=== PATIENT | male | born 1955 | race Caucasian/White ===

== ENCOUNTER 2016-10-21 09:20 | Inpatient (IN) | payer OTHER ==
--- NOTE | 2016-10-21 09:33 | PDOC ---
History of Present Illness - History of Present Illness Initial Comments: 10/21/16 09:56 Patient is a 60-year-old male past medical history of schizophrenia, hypertension, depression, seizures, chronic kidney disease, CVA, bipolar disorder, as the emergency room today after he had an elevated BUN and creatinine on his latest lab work at [facility]. The reported BUN on his intake paperwork was over 120, creatinine of 5.5. Unsure of his baseline. Patient has no complaints at this time. Denies fevers. chills, malaise, shortness of breath , chest pain, palpitations, edema, nausea, diarrhea, vomiting, back pain, and cough. <Agueda Frank - Last Filed: 10/25/16 05:05> <Rudy Metcalf - Last Filed: 10/25/16 17:59> - General Chief Complaint: Revisit, Lab Variance Stated Complaint: KIDNEY PROBLEMS Time Seen by Provider: 10/21/16 09:25 Past History - Travel Traveled outside of the country in the last 30 days: No Close contact w/someone who was outside of country & ill: No <Agueda Frank - Last Filed: 10/25/16 05:05> <Rudy Metcalf - Last Filed: 10/25/16 17:59> - Past Medical History Allergies/Adverse Reactions: Allergies Allergy/AdvReac Type Severity Reaction Status Date / Time No Known Allergies Allergy Verified 10/21/16 09:31 Home Medications: Ambulatory Orders Benztropine Mesylate [Cogentin -] 1 mg PO BID 10/21/16 Citalopram Hydrobromide [Celexa -] 20 mg PO DAILY 10/21/16 Olanzapine [Zyprexa -] 5 mg PO BID 10/21/16 Phenytoin Na Extended [Dilantin -] 200 mg PO BID 10/21/16 Risperidone [Risperdal] 2 mg PO BID 10/21/16 Sennosides [Senno] 17.2 mg PO BID PRN 10/21/16 Zonisamide 200 mg PO DAILY 10/21/16 Review of Systems - Review of Systems Able to Perform ROS?: Yes Comments:: 10/21/16 10:05 CONSTITUTIONAL: Absent: fever, chills, diaphoresis, generalized weakness, malaise, loss of appetite HEENT: Absent: rhinorrhea, nasal congestion, throat pain, throat swelling, difficulty swallowing, mouth swelling, ear pain, eye pain, visual Changes CARDIOVASCULAR: Absent: chest pain, loss of consciousness, palpitations, irregular heart rate, peripheral edema RESPIRATORY: Absent: cough, shortness of breath, dyspnea with exertion, orthopnea, wheezing, stridor, hemoptysis GASTROINTESTINAL: Absent: abdominal pain, abdominal distension, nausea, vomiting, diarrhea, constipation, melena, hematochezia GENITOURINARY: Absent: dysuria, frequency, urgency, hesitancy, hematuria, flank pain, genital pain MUSCULOSKELETAL: Absent: myalgia, arthralgia, joint swelling SKIN: Absent: rash, itching, pallor HEMATOLOGIC/IMMUNOLOGIC: Absent: easy bleeding, easy bruising, lymphadenopathy, frequent infections ENDOCRINE: Absent: unexplained weight gain, unexplained weight loss, heat intolerance, cold intolerance NEUROLOGIC: Absent: headache, focal weakness or paresthesias, dizziness, unsteady gait, seizure, mental status changes, bladder or bowel incontinence PSYCHIATRIC: Absent: anxiety, depression, suicidal or homicidal ideation, hallucinations. Is the patient limited Citizen [place] proficient: No <Agueda Frank - Last Filed: 10/25/16 05:05> *Physical Exam - Physical Exam Comments: 10/21/16 10:14 GENERAL: Well developed, well nourished. AAOx3. No acute distress, laying on bed breathing easily HEENT: Normocephalic, atraumatic. PERRLA, EOMI. No conjunctival pallor. Sclera are non- icteric. Moist mucous membranes. Oropharynx is clear. NECK: Supple. Full ROM. No JVD. Carotid pulses 2+ and symmetric, without bruits. No thyromegaly. No lymphadenopathy. CARDIOVASCULAR: Regular rate and rhythm. No murmurs, rubs, or gallops. Distal pulses are 2+ and symmetric. PULMONARY: No evidence of respiratory distress. Lungs clear to auscultation bilaterally. No wheezing, rales or rhonchi. ABDOMINAL: Soft. Non-tender. Non-distended. No rebound or guarding. No organomegaly. Normoactive bowel sounds. MUSCULOSKELETAL Normal range of motion at all joints. No bony deformities or tenderness. No CVA tenderness. EXTREMITIES: No cyanosis. No clubbing. No edema. No calf tenderness. SKIN: Warm and dry. Normal capillary refill. No rashes. No jaundice. NEUROLOGICAL: Alert, awake, appropriate. Cranial nerves 2-12 intact. No deficits to light touch and temperature in face, upper extremities and lower extremities. No motor deficits in the in face, upper extremities and lower extremities. Normoreflexic in the upper and lower extremities. Normal speech. Toes are down- going bilaterally. Gait is normal without ataxia. PSYCHIATRIC: Cooperative. Good eye contact. Appropriate mood and affect. <Agueda Frank - Last Filed: 10/25/16 05:05> - Vital Signs Last Vital Signs Temp Pulse Resp BP Pulse Ox 98.5 F 90 20 107/74 98 10/25/16 12:45 10/25/16 12:45 10/25/16 12:45 10/25/16 12:45 10/25/16 09:00 <Rudy Metcalf - Last Filed: 10/25/16 17:59> ED Treatment Course - LABORATORY CBC & Chemistry Diagram: 10/24/16 08:10 10/24/16 08:10 <Agueda Frank - Last Filed: 10/25/16 05:05> - LABORATORY CBC & Chemistry Diagram: 10/25/16 08:00 10/24/16 08:10 - ADDITIONAL ORDERS Additional order review: 10/21/16 09:53 RBC 2.64 L MCV 91.6 MCHC 34.0 RDW 12.7 MPV 7.6 Neutrophils % 77.1 Lymphocytes % 11.6 Monocytes % 7.1 Eosinophils % 4.0 Basophils % 0.2 - Medications Given in the ED: ED Medications Discontinued Medications Generic Name Dose Route Start Last Admin Trade Name Quincyq PRN Reason Stop Dose Admin Benztropine Mesylate 1 mg 10/21/16 22:00 10/22/16 18:11 Cogentin - PO Not Given BID GEOVANNA Citalopram Hydrobromide 20 mg 10/22/16 10:00 10/22/16 18:11 Celexa - PO Not Given DAILY GEOVANNA Epoetin Joao 4,000 units 10/25/16 08:00 10/25/16 09:46 Epogen - SQ 10/25/16 08:01 Not Given ONCE ONE Haloperidol Decanoate 25 mg 10/24/16 17:56 10/24/16 22:13 Haldol Decanoate (Long-Acting) - IM 10/24/16 17:57 Not Given ONCE ONE Heparin Sodium (Porcine) 1,000 unit 10/25/16 08:00 10/25/16 09:44 Heparin - IVPUSH 10/25/16 08:01 1,000 unit ONCE ONE Administration Sodium Chloride 500 mls @ 125 mls/hr 10/21/16 11:10 10/21/16 11:20 Normal Saline - IV 10/21/16 15:09 125 mls/hr ASDIR STA Administration Potassium Chloride 100 mls @ 100 mls/hr 10/23/16 14:45 10/24/16 19:09 Potassium Chloride 10 Meq Premix Ivpb - IVPB 10/24/16 15:44 Not Given ASDIR GEOVANNA Levetiracetam 500 mg 10/23/16 15:00 10/23/16 15:05 Keppra Injection - IVPB 10/23/16 15:01 500 mg ONCE ONE Administration Levetiracetam 500 mg 10/24/16 12:00 10/25/16 12:22 Keppra Injection - IVPB Not Given BID GEOVANNA Olanzapine 5 mg 10/21/16 22:00 10/21/16 22:56 Zyprexa - PO 5 mg HS GEOVANNA Administration Phenytoin Sodium 200 mg 10/21/16 22:00 10/22/16 18:11 Dilantin Chewable Tablet - PO Not Given BID GEOVANNA Phenytoin Sodium 100 mg 10/24/16 12:00 10/24/16 12:30 Dilantin Injection - IVPB 10/24/16 12:01 100 mg ONCE ONE Administration Pneumococcal 13-Valent Conj Vacc 0.5 ml 10/21/16 12:11 10/21/16 17:51 Prevnar 13 Syringe - IM 10/21/16 12:12 0.5 ml .ONCE ONE Administration Risperidone 2 mg 10/21/16 22:00 10/22/16 18:11 Risperdal - PO Not Given BID GEOVANNA Senna 1 tab 10/21/16 22:00 10/22/16 18:11 Senna - PO Not Given BID GEOVANNA Zonisamide 200 mg 10/22/16 10:00 10/22/16 18:11 Zonegran - PO Not Given DAILY GEOVANNA <Rudy Metcalf - Last Filed: 10/25/16 17:59> Medical Decision Making - Medical Decision Making 10/21/16 10:07 Patient is a 60-year-old male past medical history of schizophrenia, hypertension, depression, seizures, chronic kidney disease, CVA, bipolar disorder, as the emergency room today after he had an elevated BUN and creatinine on his latest lab work at [facility]. We will repeat the lab work at this time to confirm home findings. Also obtain an EKG. Reevaluate. EKG: Rate 98 bpm, sinus tachycardia, Prolonged QT 406/518, left anterior fasicular block, no acute ST-T wave changes. 10/21/16 10:56 Labs show elevated BUN and creatinine 118/5.5. Hemoglobin is low at 8.7. We will consult with Dr. Davidson the physician from [facility] to establish baseline labs. Will start gentle hydration at this time normal saline 500 mL rate of 125. Reevaluate 10/21/16 11:[address] Davidson from [facility]. He states that these elevated labs have been going on for "quite some time". Dr. Cervantes is aware of the issue and is his renal doctor. Per Dr. Davidson the patient is presenting today for admission for dialysis and vascular access. Will admit to Dr. Nguyen at this time. Dr. Cervantes to consult. 1st call 10/21/16 11:[address] Nguyen who agrees to admission. Also requests that Dr. Knox be consult for vascular access. Will admit to med-surg. <Agueda Frank - Last Filed: 10/25/16 05:05> - Medical Decision Making 10/25/16 17:59 The patient was seen and evaluated in conjunction with KARMEN Frank under my direct supervision, ancillary studies were reviewed. I independently interviewed and evaluated the patient and I agree with the plan as outlined by KARMEN Frank . <Rudy Metcalf - Last Filed: 10/25/16 17:59> *DC/Admit/Observation/Transfer - Discharge Dispostion Admit: Yes <Agueda Frank - Last Filed: 10/25/16 05:05> <Rudy Metcalf - Last Filed: 10/25/16 17:59> Diagnosis at time of Disposition: Kidney failure Qualifiers: Renal failure chronicity: unspecified chronicity Qualified Code(s): N19 - Unspecified kidney failure - Referrals
[2016-10-21 09:45] VITALS: BMI 28.0
--- NOTE | 2016-10-21 10:00 | PDOC ---
Attending Attestation - Resident Resident Name: Agueda Frank - ED Attending Attestation I have performed the following: I have examined & evaluated the patient, The case was reviewed & discussed with the resident, I agree w/resident's findings & plan, Exceptions are as noted - HPI HPI: 10/21/16 10:44 60y M hx of schizophrenia, htn, depression, seizures, ckd, cva, bipolar disorder presents to the ED for abnormal labs at [facility] - his BUN was 120 with Cr of 5.5. pt otherwise asypmtomatic. exam as documented by KARMEN frank will recheck his labs ekg reveals no signs of hyperkalemia 10/21/16 11:14 pts labs noted for elevated cr and bun also mild anemia pt will be admitted nder dr. sarmiento service for ckd and possible dialysis/ further workup K is not elevated emergent dialysis not indicated will consult with dr. quiroz - Physicial Exam PE: 10/22/16 08:04 se eabove - Medical Decision Making 10/22/16 08:04 see above Heart Score/ECG Review - ECG Impressions Comment:: 10/21/16 10:45 Twelve-lead EKG was performed and reviewed by me. There is normal sinus rhythm with a normal rate. Rate of 98 LAFB QTc interval of 518
[2016-10-21 10:17] LABS: BASOPHIL 0.2 % (0-2.0); MCH 31.2 pg (25.7-33.7); MEAN CELL VOLUME 91.6 fl (80-96); MEAN PLT VOLUME 7.6 fl (7.5-11.1); NEUTROPHILS 77.1 % (42.8-82.8); PLATELET COUNT 173 K/MM3 (134-434); RDW 12.7 % (11.9-15.9); WHITE BLOOD COUNT 5.9 K/mm3 (4.0-10.0)
[2016-10-21 10:36] LABS: ALBUMIN 3.1 g/dl (3.4-5.0); ANION GAP 11 (8-16); CALCIUM 8.3 mg/dL (8.5-10.1); CO2 23 mmol/L (21-32); GLUCOSE,RANDOM 136 mg/dL (74-106); MAGNESIUM 2.8 mg/dL (1.8-2.4)
[2016-10-21 10:39] LABS: ALK PHOS 175 U/L (45-117); BILIRUBIN,TOTAL 0.2 mg/dL (0.2-1.0); CREATININE 5.4 mg/dL (0.7-1.3); PHOSPHOROUS 5.4 mg/dL (2.5-4.9); SGOT/AST 15 U/L (15-37); SGPT/ALT 27 U/L (12-78); TOT PROT 6.6 g/dl (6.4-8.2)
[2016-10-21 10:42] LABS: TROPONIN I 0.03 ng/ml (0.00-0.05)
[2016-10-21] MEDS ORDERED: SODIUM CHLORIDE 500 ML IV STA (11:10)
[2016-10-21] MEDS ORDERED: PNEUMOC 13-VAL CONJ-DIP CRM/PF 0.5 ML DISP.SYRIN IM ONE (12:11)
[2016-10-21 12:25] LABS: URINE APPEARANCE CLEAR; URINE BILIRUBIN NEGATIVE (NEGATIVE); URINE BLOOD NEGATIVE (NEGATIVE); URINE COLOR STRAW; URINE GLUCOSE (UA) 1+ (NEGATIVE); URINE KETONE NEGATIVE (NEGATIVE); URINE LEUK ESTERASE NEGATIVE (NEGATIVE); URINE NITRITE NEGATIVE (NEGATIVE); URINE UROBILINOGEN NEGATIVE mg/dL (0.2-1.0)
[2016-10-21 12:26] LABS: URINE PROTEIN 2+ (NEGATIVE)
[2016-10-21 12:32] LABS: URINE RBC <1 /hpf (0-3); URINE WBC <1 /hpf (3-5)
--- NOTE | 2016-10-21 15:26 | CON.NEP ---
Consult Consult Specialty:: Nephrology Reason for Consultation:: ckd - History of Present Illness Chief Complaint: none History of Present Illness: Patient is a 60-year-old male past medical history of schizophrenia, hypertension, depression, seizures, chronic kidney disease, CVA, bipolar disorder, as the emergency room today after he had an elevated BUN and creatinine on his latest lab work at [facility]. The reported BUN on his intake paperwork was over 120, creatinine of 5.5.. Patient has no complaints at this time. Denies fevers. chills, malaise, shortness of breath, chest pain, palpitations, edema, nausea, diarrhea, vomiting, back pain, and cough. I had seen him previously for stable ckd with high bun and creat of about 4. It has worsened and he is a difficult historian. So he is here for initiation of hemodialysis. He denies complaints, except pruritus. - History Source History Provided By: Patient, Medical Record Limitations to Obtaining History: Poor Historian - Past Medical History GRANT OFFICER: Yes: Seizure Renal/: Yes: Renal Failure Psych: Yes: Schizophrenia - Alcohol/Substance Use Hx Alcohol Use: No - Smoking History Smoking history: Unknown if ever smoked Home Medications - Allergies Allergies/Adverse Reactions: Allergies Allergy/AdvReac Type Severity Reaction Status Date / Time No Known Allergies Allergy Verified 10/21/16 09:31 - Home Medications Home Medications: Ambulatory Orders Benztropine Mesylate [Cogentin -] 1 mg PO BID 10/21/16 Citalopram Hydrobromide [Celexa -] 20 mg PO DAILY 10/21/16 Olanzapine [Zyprexa -] 5 mg PO BID 10/21/16 Phenytoin Na Extended [Dilantin -] 200 mg PO BID 10/21/16 Risperidone [Risperdal] 2 mg PO BID 10/21/16 Sennosides [Senno] 17.2 mg PO BID PRN 10/21/16 Zonisamide 200 mg PO DAILY 10/21/16 Review of Systems - Review of Systems Constitutional: reports: No Symptoms Eyes: reports: No Symptoms HENT: reports: No Symptoms Neck: reports: No Symptoms Cardiovascular: reports: No Symptoms Respiratory: reports: No Symptoms Gastrointestinal: reports: No Symptoms Genitourinary: reports: No Symptoms Breasts: reports: No Symptoms Reported Musculoskeletal: reports: No Symptoms Integumentary: reports: No Symptoms Neurological: reports: No Symptoms Endocrine: reports: No Symptoms Hematology/Lymphatic: reports: No Symptoms Psychiatric: reports: No Symptoms Nephrology Consult - Height Height: 5 ft 9 in - Weight Weight: 190 lb - BMI Body Mass Index (BMI): 28.0 - Lab Results CBC,BMP: Laboratory Last Values WBC 5.9 K/mm3 (4.0-10.0) 10/21/16 09:53 RBC 2.64 M/mm3 (4.00-5.60) L 10/21/16 09:53 Hgb 8.2 GM/dL (11.7-16.9) L 10/21/16 09:53 Hct 24.2 % (35.4-49) L 10/21/16 09:53 MCV 91.6 fl (80-96) 10/21/16 09:53 MCH 31.2 pg (25.7-33.7) 10/21/16 09:53 MCHC 34.0 g/dl (32.0-35.9) 10/21/16 09:53 RDW 12.7 % (11.9-15.9) 10/21/16 09:53 Plt Count 173 K/MM3 (134-434) 10/21/16 09:53 MPV 7.6 fl (7.5-11.1) 10/21/16 09:53 Neutrophils % 77.1 % (42.8-82.8) 10/21/16 09:53 Lymphocytes % 11.6 % (8-40) 10/21/16 09:53 Monocytes % 7.1 % (3.8-10.2) 10/21/16 09:53 Eosinophils % 4.0 % (0-4.5) 10/21/16 09:53 Basophils % 0.2 % (0-2.0) 10/21/16 09:53 Sodium 143 mmol/L (136-145) 10/21/16 09:53 Potassium 3.1 mmol/L (3.5-5.1) L 10/21/16 09:53 Chloride 109 mmol/L (98-107) H 10/21/16 09:53 Carbon Dioxide 23 mmol/L (21-32) 10/21/16 09:53 Anion Gap 11 (8-16) 10/21/16 09:53 BUN 118 mg/dL (7-18) H* 10/21/16 09:53 Creatinine 5.4 mg/dL (0.7-1.3) H 10/21/16 09:53 Creat Clearance w eGFR 10.85 (>60) 10/21/16 09:53 Random Glucose 136 mg/dL (74-106) H 10/21/16 09:53 Calcium 8.3 mg/dL (8.5-10.1) L 10/21/16 09:53 Phosphorus 5.4 mg/dL (2.5-4.9) H 10/21/16 09:53 Magnesium 2.8 mg/dL (1.8-2.4) H 10/21/16 09:53 Total Bilirubin 0.2 mg/dL (0.2-1.0) 10/21/16 09:53 AST 15 U/L (15-37) 10/21/16 09:53 ALT 27 U/L (12-78) 10/21/16 09:53 Alkaline Phosphatase 175 U/L (45-117) H 10/21/16 09:53 Creatine Kinase 51 IU/L (39-308) 10/21/16 09:53 Troponin I 0.03 ng/ml (0.00-0.05) 10/21/16 09:53 Total Protein 6.6 g/dl (6.4-8.2) 10/21/16 09:53 Albumin 3.1 g/dl (3.4-5.0) L 10/21/16 09:53 Urine Color Straw 10/21/16 12:10 Urine Appearance Clear 10/21/16 12:10 Urine pH 6.0 (5.0-8.0) 10/21/16 12:10 Urine Protein 2+ (NEGATIVE) H 10/21/16 12:10 Urine Glucose (UA) 1+ (NEGATIVE) H 10/21/16 12:10 Urine Ketones Negative (NEGATIVE) 10/21/16 12:10 Urine Blood Negative (NEGATIVE) 10/21/16 12:10 Urine Nitrite Negative (NEGATIVE) 10/21/16 12:10 Urine Bilirubin Negative (NEGATIVE) 10/21/16 12:10 Urine Urobilinogen Negative mg/dL (0.2-1.0) 10/21/16 12:10 Ur Leukocyte Esterase Negative (NEGATIVE) 10/21/16 12:10 Urine RBC <1 /hpf (0-3) 10/21/16 12:10 Urine WBC <1 /hpf (3-5) 10/21/16 12:10 Anion Gap: Anion Gap Anion Gap 11 (8-16) 10/21/16 09:53 - Physical Examination Vital Signs: Vital Signs Temperature 98.4 F 10/21/16 14:52 Pulse Rate 87 10/21/16 14:52 Respiratory Rate 20 10/21/16 14:52 Blood Pressure 128/79 10/21/16 14:52 O2 Sat by Pulse Oximetry (%) 97 10/21/16 11:52 Constitutional: Yes: Well Nourished, No Distress, Calm Eyes: Yes: Conjunctiva Clear, EOM Intact HENT: Yes: Atraumatic, Normocephalic Neck: Yes: Supple, Trachea Midline Cardiovascular: Yes: Regular Rate and Rhythm. No: Rub Respiratory: Yes: Regular, Diminished (right base) Gastrointestinal: Yes: Normal Bowel Sounds Renal/: Yes: WNL Musculoskeletal: Yes: WNL Edema: LLE: 1+, RLE: 1+ Peripheral Pulses WNL: Yes Neurological: Yes: Alert, Oriented Psychiatric: Yes: Alert, Oriented Assessment/Plan IMPRESSION probable diabetic kidney disease psych disorder ckd stage 5 with anemia and pruritus PLAN will have PC inserted tomorrow can start HD tomorrow after PC insertion check hep panel and zahida spep phos iron studies MV
--- NOTE | 2016-10-21 15:49 | HP ---
Admitting History and Physical - Primary Care Physician PCP: Wai Nguyen - Admission Chief Complaint: WORSENING RENAL FAILURE History of Present Illness: Patient is a 60-year-old male past medical history of schizophrenia, hypertension, depression, seizures, chronic kidney disease, CVA, bipolar disorder, as the emergency room today after he had an elevated BUN and creatinine on his latest lab work at [facility]. The reported BUN on his intake paperwork was over 120, creatinine of 5.5. Unsure of his baseline. Patient has no complaints at this time. Denies fevers. chills, malaise, shortness of breath , chest pain, palpitations, edema, nausea, diarrhea, vomiting, back pain, and cough. History Source: Patient, Medical Record - Past Medical History BUSINESS PROCESS SPECIALIST: Yes: Seizure Renal/: Yes: Renal Failure Psych: Yes: Schizophrenia - Smoking History Smoking history: Unknown if ever smoked - Alcohol/Substance Use Hx Alcohol Use: No Home Medications - Allergies Allergies/Adverse Reactions: Allergies Allergy/AdvReac Type Severity Reaction Status Date / Time No Known Allergies Allergy Verified 10/21/16 09:31 - Home Medications Home Medications: Ambulatory Orders Benztropine Mesylate [Cogentin -] 1 mg PO BID 10/21/16 Citalopram Hydrobromide [Celexa -] 20 mg PO DAILY 10/21/16 Olanzapine [Zyprexa -] 5 mg PO BID 10/21/16 Phenytoin Na Extended [Dilantin -] 200 mg PO BID 10/21/16 Risperidone [Risperdal] 2 mg PO BID 10/21/16 Sennosides [Senno] 17.2 mg PO BID PRN 10/21/16 Zonisamide 200 mg PO DAILY 10/21/16 Review of Systems - Review of Systems Constitutional: reports: No Symptoms Eyes: reports: No Symptoms HENT: reports: No Symptoms Neck: reports: No Symptoms Cardiovascular: reports: No Symptoms Respiratory: reports: No Symptoms Gastrointestinal: reports: No Symptoms Genitourinary: reports: No Symptoms Integumentary: reports: No Symptoms Neurological: reports: Pre-Existing Deficit, Weakness Endocrine: reports: No Symptoms Hematology/Lymphatic: reports: No Symptoms Psychiatric: reports: No Symptoms Physical Examination Vital Signs: Vital Signs Temperature 98.4 F 10/21/16 14:52 Pulse Rate 87 07/18/17 14:52 Respiratory Rate 20 10/21/16 14:52 Blood Pressure 128/79 10/21/16 14:52 O2 Sat by Pulse Oximetry (%) 97 10/21/16 11:52 Constitutional: Yes: No Distress Eyes: Yes: WNL HENT: Yes: WNL Neck: Yes: WNL Cardiovascular: Yes: WNL Respiratory: Yes: WNL Gastrointestinal: Yes: WNL Renal/: Yes: WNL Musculoskeletal: Yes: WNL Extremities: Yes: WNL Edema: No Peripheral Pulses WNL: Yes Integumentary: Yes: WNL Wound/Incision: Yes: Clean/Dry Neurological: Yes: Confusion, Pre-Existing Deficit ...Motor Strength: LLE, RLE Psychiatric: Yes: Other Problem List - Problems (1) Kidney failure Code(s): N19 - UNSPECIFIED KIDNEY FAILURE Qualifiers: Renal failure chronicity: unspecified chronicity Qualified Code(s): N19 - Unspecified kidney failure (2) Acute on chronic renal failure Code(s): N17.9 - ACUTE KIDNEY FAILURE, UNSPECIFIED N18.9 - CHRONIC KIDNEY DISEASE, UNSPECIFIED (3) Schizo-affective schizophrenia, chronic condition Code(s): F25.8 - OTHER SCHIZOAFFECTIVE DISORDERS Assessment/Plan ACCESS FOR HEMODIALYSIS NEPHROLOGY EVAL LABS REVIEWED OOB TO CHAIR WITH ASSIST FALL PRECAUTIONS
--- NOTE | 2016-10-21 15:53 | EKG ---
Test Reason : Blood Pressure : / mmHG Vent. Rate : 098 BPM Atrial Rate : 098 BPM P-R Int : 152 ms QRS Dur : 108 ms QT Int : 406 ms P-R-T Axes : 057 -52 045 degrees QTc Int : 518 ms NORMAL SINUS RHYTHM LEFT ANTERIOR FASCICULAR BLOCK MINIMAL VOLTAGE CRITERIA FOR LVH, MAY BE NORMAL VARIANT PROLONGED QT ABNORMAL ECG NO PREVIOUS ECGS AVAILABLE CORELATE CLINICALLY AND REPEAT INDICATED. Confirmed by VICTORINA BURGER MD ([id number]) on 10/21/2016 3:53:36 PM Referred By: Confirmed By:VICTORINA BURGER MD
--- NOTE | 2016-10-21 16:45 | CONSULT ---
- Consultation REQUESTING PROVIDER: Dr. Schmid CONSULT REQUEST: We have been asked to surgically evaluate this patient for ( specify). PCP:Wai Nguyen HISTORY OF PRESENT ILLNESS: The patient is a 60 yo male with a PHMX of HTN, depression, schizophrenia, chronic kidney disease. His family is at the bedside to assist with giving his health history since he is a unreliable historian. As per the family his kidneys have been failing for a while and recently he was treated with IV fluids. He had a slight transient improvement in his levels but were worse on repeat values. The patient denies any CP, SOB and has no dysuria or abd complaints. He still urinates every day and hasn't noticed a decrease in the amount. PMHx: HTN, CKD, depression, schizophrenia, bipolar, seizure disorder PSHx: left shoulder arthroscopy, repair of left knee fracture(1 year ago) Home Medications Medication Instructions Recorded Benztropine Mesylate [Cogentin -] 1 mg PO BID 10/21/16 Citalopram Hydrobromide [Celexa -] 20 mg PO DAILY 10/21/16 Olanzapine [Zyprexa -] 5 mg PO BID 10/21/16 Phenytoin Na Extended [Dilantin -] 200 mg PO BID 10/21/16 Risperidone [Risperdal] 2 mg PO BID 10/21/16 Sennosides [Senno] 17.2 mg PO BID PRN 10/21/16 Zonisamide 200 mg PO DAILY 10/21/16 Allergies Allergy/AdvReac Type Severity Reaction Status Date / Time No Known Allergies Allergy Verified 10/21/16 09:31 REVIEW OF SYSTEMS: CONSTITUTIONAL: Absent: fever, chills CARDIOVASCULAR: Absent: chest pain, syncope, palpitations, irregular heart rate RESPIRATORY: Absent: cough, shortness of breath, dyspnea with exertion GASTROINTESTINAL: Absent: abdominal pain, abdominal distension, nausea, vomiting. No blood per rectum. GENITOURINARY: Absent: dysuria, hematuria, flank pain. Urine at bedside in urinal-yellow and volume of approx 400ml. MUSCULOSKELETAL: Absent: back pain, neck pain HEMATOLOGIC/IMMUNOLOGIC: Absent: easy bleeding, easy bruising NEUROLOGIC: Present: unsteady gait, seizure disorder(unsure when last seizure was) PSYCHIATRIC: Present: anxiety, depression PHYSICAL EXAM: GENERAL: Awake, alert, and fully oriented, in no acute distress. HEAD: Normal with no signs of trauma. EYES: sclera anicteric, conjunctiva clear pale NECK: Normal ROM, supple without lymphadenopathy, JVD, or masses. LUNGS: Clear to auscultation bilat anteriorly. B/l crackles at bases of lungs. HEART: Regular rate and rhythm. No murmurs ABDOMEN: Soft, nontender, slight distended, non-tympaanic. no guarding, no rebound, no masses. MUSCULOSKELETAL: Normal ROM at all joints. No bony deformities or tenderness. No CVA tenderness. UPPER EXTREMITIES: 2+ pulses, warm, well-perfused. No cyanosis. Cap refill <2 seconds. LOWER EXTREMITIES: 2+ pulses, warm, well-perfused. No calf tenderness. b/l +1 pitting edema, slight greater on left. NEUROLOGICAL: Normal speech, gait not observed. PSYCH: Cooperative. Good eye contact. Appropriate mood and affect. Vital Signs Temperature 98.4 F 10/21/16 14:52 Pulse Rate 87 10/21/16 14:52 Respiratory Rate 20 10/21/16 14:52 Blood Pressure 128/79 10/21/16 14:52 O2 Sat by Pulse Oximetry (%) 97 10/21/16 11:52 Lab Results WBC 5.9 K/mm3 (4.0-10.0) 10/21/16 09:53 RBC 2.64 M/mm3 (4.00-5.60) L 10/21/16 09:53 Hgb 8.2 GM/dL (11.7-16.9) L 10/21/16 09:53 Hct 24.2 % (35.4-49) L 10/21/16 09:53 MCV 91.6 fl (80-96) 10/21/16 09:53 MCHC 34.0 g/dl (32.0-35.9) 10/21/16 09:53 RDW 12.7 % (11.9-15.9) 10/21/16 09:53 Plt Count 173 K/MM3 (134-434) 10/21/16 09:53 Sodium 143 mmol/L (136-145) 10/21/16 09:53 Potassium 3.1 mmol/L (3.5-5.1) L 10/21/16 09:53 Chloride 109 mmol/L (98-107) H 10/21/16 09:53 Carbon Dioxide 23 mmol/L (21-32) 10/21/16 09:53 Anion Gap 11 (8-16) 10/21/16 09:53 BUN 118 mg/dL (7-18) H* 10/21/16 09:53 Creatinine 5.4 mg/dL (0.7-1.3) H 10/21/16 09:53 Random Glucose 136 mg/dL (74-106) H 10/21/16 09:53 Calcium 8.3 mg/dL (8.5-10.1) L 10/21/16 09:53 Problem List - Problems (1) Acute on chronic renal failure Assessment/Plan: 60 yo male with need for HD access, will plan for permacath tomorrow in the afternoon. D/w Dr. Schmid. Spoke with the family and nursing staff to assist with HCP information. His cousin and mother were at the bedside today and will agree to giving consent. The nurse is contacting [facility] to determine who will give consent. I spoke with the medical team and they will clear the patient for the permacath. Since the patient was originally seen, Nephrology has now seen the patient and recommend permacath placement. Will also preserve the left upper extremity if he should need rat exterminator access such as a fistula. Labs ordered including coag profile and T&S. His H&H is low, probably from chronic kidney disease. He denies any GI bleeding. Code(s): N17.9 - ACUTE KIDNEY FAILURE, UNSPECIFIED N18.9 - CHRONIC KIDNEY DISEASE, UNSPECIFIED Visit type - Case Type Case Type: ED Admission - Emergency Emergency Visit: Yes ED Registration Date: 10/21/16 Care time: The patient presented to the Emergency Department on the above date and was hospitalized for further evaluation of their emergent condition. - New patient This patient is new to me today: Yes Date on this admission: 10/21/16 - Critical Care Critical Care patient: No
[2016-10-21 17:46] LABS: INR 1.37 (0.82-1.09); PROTHROMBIN TIME (PATIENT) 15.2 SEC (9.98-11.88)
[2016-10-21] MEDS ORDERED: PT OWN MED DRAWER 7, Y5N ONE (20:50)
[2016-10-21] MEDS ORDERED: OLANZapine 5 MG TABLET PO SCH (22:00)
[2016-10-21] MEDS: SENNOSIDES 8.6MG TABLET (FP) PO SCH (22:56)
[2016-10-21] MEDS: BENZTROPINE MESYLATE 1 MG TABLET (FP) PO SCH (22:56)
[2016-10-21] MEDS: risperiDONE 1 MG TABLET (FP) PO SCH (22:57)
[2016-10-21] MEDS: PHENYTOIN 50 MG TAB.CHEW PO SCH (22:57)
[2016-10-22 08:26] LABS: PHOSPHOROUS 5.9 mg/dL (2.5-4.9); SGOT/AST 17 U/L (15-37)
--- NOTE | 2016-10-22 08:29 | PN ---
Progress Note (short form) - Note Progress Note: RENAL Pt seen and examined was comfortable Last Vital Signs Temp Pulse Resp BP Pulse Ox 98.2 F 86 20 125/81 100 10/22/16 06:00 10/22/16 06:00 10/22/16 06:00 10/22/16 06:00 10/21/16 22:00 lungs clear cvs s1s2 rr abd soft ext +trace edema neuro a+o labs pending IMPRESSION CKD stage 5 probably due to DM anemia seizure disorder ?schizophrenia PLAN will dialyze once PC is available can start KT as well no need for phosphate binder MV
[2016-10-22 08:31] LABS: MCH 31.6 pg (25.7-33.7); MCHC 33.8 g/dl (32.0-35.9); MEAN CELL VOLUME 93.5 fl (80-96); MEAN PLT VOLUME 8.3 fl (7.5-11.1); PLATELET COUNT 165 K/MM3 (134-434); RDW 12.7 % (11.9-15.9); WHITE BLOOD COUNT 7.1 K/mm3 (4.0-10.0)
[2016-10-22 08:33] LABS: ALK PHOS 170 U/L (45-117); ANION GAP 10 (8-16); BILIRUBIN,TOTAL 0.3 mg/dL (0.2-1.0); CALCIUM 8.3 mg/dL (8.5-10.1); CO2 22 mmol/L (21-32); CREATININE 5.3 mg/dL (0.7-1.3); GLUCOSE,RANDOM 93 mg/dL (74-106); SGPT/ALT 27 U/L (12-78); TOT PROT 6.3 g/dl (6.4-8.2)
[2016-10-22] MEDS ORDERED: ZONISAMIDE 100 MG CAPSULE PO SCH ×2 (10:00→23:30)
[2016-10-22] MEDS ORDERED: CITALOPRAM HYDROBROMIDE 20 MG TABLET (FP) PO SCH (10:00)
--- NOTE | 2016-10-22 14:57 | EKG ---
Test Reason : Blood Pressure : / mmHG Vent. Rate : 091 BPM Atrial Rate : 091 BPM P-R Int : 144 ms QRS Dur : 106 ms QT Int : 402 ms P-R-T Axes : 053 -44 023 degrees QTc Int : 494 ms SINUS RHYTHM WITH PREMATURE ATRIAL COMPLEXES LEFT AXIS DEVIATION MODERATE VOLTAGE CRITERIA FOR LVH, MAY BE NORMAL VARIANT PROLONGED QT ABNORMAL ECG WHEN COMPARED WITH ECG OF 21-OCT-2016 09:28, PREMATURE ATRIAL COMPLEXES ARE NOW PRESENT Confirmed by BHASKAR VELASQUEZ MD ([id number]) on 10/22/2016 2:57:09 PM Referred By: Confirmed By:BHASKAR VELASQUEZ MD
--- NOTE | 2016-10-22 16:49 | PN ---
Progress Note, Physician Chief Complaint: AWAKE AROUSABLE NAD - Current Medication List Current Medications: Active Medications Benztropine Mesylate (Cogentin -) 1 mg PO BID [facility] Last Admin: 10/21/16 22:56 Dose: 1 mg Citalopram Hydrobromide (Celexa -) 20 mg PO DAILY [facility] Olanzapine (Zyprexa -) 5 mg PO HS [facility] Last Admin: 10/21/16 22:56 Dose: 5 mg Phenytoin Sodium (Dilantin Chewable Tablet -) 200 mg PO BID [facility] Last Admin: 10/21/16 22:57 Dose: 200 mg Risperidone (Risperdal -) 2 mg PO BID [facility] Last Admin: 10/21/16 22:57 Dose: 2 mg Senna (Senna -) 1 tab PO BID [facility] Last Admin: 10/21/16 22:56 Dose: 1 tab Zonisamide (Zonegran -) 200 mg PO DAILY [facility] - Objective Vital Signs: Vital Signs Temperature 99.2 F 10/22/16 14:45 Pulse Rate 82 10/22/16 14:45 Respiratory Rate 18 10/22/16 14:45 Blood Pressure 130/82 10/22/16 14:45 O2 Sat by Pulse Oximetry (%) 100 10/22/16 10:00 Constitutional: Yes: No Distress Eyes: Yes: WNL HENT: Yes: WNL Neck: Yes: WNL Cardiovascular: Yes: WNL Respiratory: Yes: WNL Gastrointestinal: Yes: WNL Genitourinary: Yes: Incontinence Musculoskeletal: Yes: Muscle Weakness Extremities: Yes: Other Edema: No Peripheral Pulses WNL: Yes Integumentary: Yes: WNL Wound/Incision: Yes: Clean/Dry Neurological: Yes: Pre-Existing Deficit ...Motor Strength: WNL Psychiatric: Yes: Other Labs: CBC, BMP 10/22/16 06:10 10/22/16 06:10 INR, PTT INR 1.37 (0.82-1.09) H 10/21/16 16:45 Problem List - Problems (1) Kidney failure Code(s): N19 - UNSPECIFIED KIDNEY FAILURE Qualifiers: Renal failure chronicity: unspecified chronicity Qualified Code(s): N19 - Unspecified kidney failure (2) Acute on chronic renal failure Code(s): N17.9 - ACUTE KIDNEY FAILURE, UNSPECIFIED N18.9 - CHRONIC KIDNEY DISEASE, UNSPECIFIED Assessment/Plan ACCESS FOR HEMODIALYSIS NEPHROLOGY EVAL LABS REVIEWED OOB TO CHAIR WITH ASSIST ANEMIA WORKUP FALL PRECAUTIONS
[2016-10-22] MEDS: BENZTROPINE MESYLATE 1 MG TABLET (FP) PO SCH ×2 (18:11→23:31)
[2016-10-22] MEDS: risperiDONE 1 MG TABLET (FP) PO SCH ×2 (18:11→23:31)
[2016-10-22] MEDS: SENNOSIDES 8.6MG TABLET (FP) PO SCH (18:11)
[2016-10-22] MEDS: PHENYTOIN 50 MG TAB.CHEW PO SCH ×2 (18:11→23:31)
[2016-10-22] MEDS ORDERED: LIDOCAINE HCL 1%, 10 MG/ML (20ML VIAL) ONE (19:31)
[2016-10-22] MEDS ORDERED: PROPOFOL 20 ML ONE ×3 (19:35)
[2016-10-22] MEDS ORDERED: MIDAZOLAM HCL 2 MG/2 ML SINGLE DOSE VIAL ONE (19:36)
[2016-10-22] MEDS ORDERED: LIDOCAINE HCL 1%, 10 MG/ML (20ML VIAL) IJ ONE (20:31)
--- NOTE | 2016-10-22 20:46 | OP ---
Operative Note - Note: Operative Date: 10/22/16 Pre-Operative Diagnosis: Renal failure Operation: Placement Permacath Implants: 23 cm Permacath Post-Operative Diagnosis: Same as Pre-op Surgeon: Jorge Luis Schmid Anesthesiologist/KNOWLEDGE MANAGEMENT CONSULTANT: Dustin Pierce Anesthesia: Fractional
[2016-10-22] MEDS ORDERED: ACETAMINOPHEN 325 MG TABLET (FP) PO PRN (20:48)
[2016-10-22] MEDS ORDERED: PROMETHAZINE HCL 25 MG/1 ML VIAL IVPUSH PRN (20:57)
[2016-10-22] MEDS ORDERED: ONDANSETRON 4 MG/2 ML VIAL IVPUSH PRN (20:57)
[2016-10-22] MEDS: OLANZapine 5 MG TABLET PO SCH (23:32)
[2016-10-23 06:06] LABS: SERUM IRON 66 ug/dL (38-169); TOTAL IRON BINDING CAPACITY 245 ug/dL (250-450); UIBC 179 ug/dL (111-343)
--- NOTE | 2016-10-23 09:16 | PN ---
Progress Note (short form) - Note Progress Note: RENAL Pt seen and examined was comfortable having breakfast Last Vital Signs Temp Pulse Resp BP Pulse Ox 98.5 F 86 18 131/72 100 10/23/16 05:49 10/23/16 05:49 10/23/16 05:49 10/23/16 05:49 10/22/16 23:23 lungs clear cvs s1s2 rr abd soft ext +trace edema neuro a+o CBC, BMP 10/22/16 06:10 10/22/16 06:10 Current Medications Generic Name Dose Route Start Last Admin Trade Name Freq PRN Reason Stop Dose Admin Acetaminophen 650 mg 10/22/16 20:48 Tylenol - PO Q4H PRN FEVER OR PAIN Benztropine Mesylate 1 mg 10/22/16 23:30 10/22/16 23:31 Cogentin - PO 1 mg BID GEOVANNA Administration Citalopram Hydrobromide 20 mg 10/23/16 10:00 Celexa - PO DAILY GEOVANNA Fentanyl 50 mcg 10/22/16 20:57 Sublimaze Injection - IVPUSH 10/25/16 20:58 [id number] PRN PAIN Olanzapine 5 mg 10/22/16 23:30 10/22/16 23:32 Zyprexa - PO 5 mg HS GEOVANNA Administration Phenytoin Sodium 200 mg 10/22/16 23:30 10/22/16 23:31 Dilantin Chewable Tablet - PO 200 mg BID GEOVANNA Administration Risperidone 2 mg 10/22/16 23:30 10/22/16 23:31 Risperdal - PO 2 mg BID GEOVANNA Administration Senna 1 tab 10/23/16 10:00 Senna - PO BID GEOVANNA Zonisamide 200 mg 10/23/16 10:00 Zonegran - PO DAILY GEOVANNA IMPRESSION CKD stage 5 probably due to DM anemia seizure disorder ?schizophrenia PLAN will be dialyzed today will need to make arrangements for HD at [facility] can start KT as well no need for phosphate binder MV
[2016-10-23] MEDS: CITALOPRAM HYDROBROMIDE 20 MG TABLET (FP) PO SCH (12:00)
[2016-10-23] MEDS: SENNOSIDES 8.6MG TABLET (FP) PO SCH ×2 (12:00→22:47)
[2016-10-23] MEDS: PHENYTOIN 50 MG TAB.CHEW PO SCH ×2 (12:01→22:47)
[2016-10-23] MEDS ORDERED: LORAZEPAM CARPU-JECT 2 MG/ML DISP.SYRIN ONE (12:05)
--- NOTE | 2016-10-23 12:22 | RAPID ---
Physical Examination Vital Signs: Vital Signs Temperature 98.0 F 10/23/16 11:49 Pulse Rate 92 H 10/23/16 11:49 Respiratory Rate 18 10/23/16 11:49 Blood Pressure 115/74 10/23/16 11:49 O2 Sat by Pulse Oximetry (%) 100 10/22/16 23:23 Findings/Remarks: No tongue laceration, No head trauma. Constitutional: Yes: Well Nourished, No Distress, Calm Eyes: Yes: Other (Left dilated pupil, poorly reactive (As per nursing this is patient's baseline)) HENT: Yes: WNL, Atraumatic, Normocephalic Neck: Yes: WNL, Supple, Trachea Midline Cardiovascular: Yes: WNL, Regular Rate and Rhythm Respiratory: Yes: WNL, Regular, CTA Bilaterally Gastrointestinal: Yes: WNL, Normal Bowel Sounds, Soft Musculoskeletal: Yes: WNL Extremities: Yes: WNL Peripheral Pulses: Left Doralis Pedis: 2+, Right Dorsalis Pedis: 2+ Integumentary: Yes: WNL Neurological: Yes: WNL, Alert, Oriented (A&O x 2 (Person/Time)), Other (5/5 strength bilaterally, senesation intact bilaterally) ...Motor Strength: WNL (5/5) Psychiatric: Yes: Alert, Oriented (A&O X2) Labs: CBC, BMP 10/22/16 06:10 10/22/16 06:10 Rapid Response - Rapid Response Assessment: Rapid response was called. Nursing heard a loud thud and came to find the patient was found to be on the ground with head jerking movements that lasted between 2-5 minutes. Initially patient had a pulse with no airway compromise. He was not responsive to verbal or tactile stimuli. He took 2-3 minutes to awaken and become verbal. Speech was clear. He had no facial droop. Initial blood pressure was 160/117, BGM of 102, HR of 114, and RR of 10. Patient put on non-rebreather, Pulse ox was 99%. C-spine was stabilized. Repeat blood pressure was 124/85. Patient awoke and was verbal. He was able to stand on his own with two person assist and walked to his bed. A/P- 60 year old male with PMH of CKD stage 5, schizophrenia, and seizure disorder presented with a fall after dialysis. -Likely due to not receiving seizure medications or post-dialysis vasovagal -This was patient's initial dialysis. -Not on any anticoagulation Plan: -CBC, BMP -Head CT noncontrast -EKG -PT/INR -PTT Primary Physician Notified: Wai Nguyen Time PMD Notified: 12:21
[2016-10-23] MEDS: ZONISAMIDE 100 MG CAPSULE PO SCH (13:06)
[2016-10-23] MEDS: risperiDONE 1 MG TABLET (FP) PO SCH ×2 (13:06→22:48)
[2016-10-23] MEDS: BENZTROPINE MESYLATE 1 MG TABLET (FP) PO SCH ×2 (13:07→22:46)
[2016-10-23 13:25] LABS: INR 1.5 (0.82-1.09); PROTHROMBIN TIME (PATIENT) 16.6 SEC (9.98-11.88)
[2016-10-23 13:28] LABS: ACTIVATED PTT 26.8 SECONDS (26.9-34.4)
[2016-10-23 13:40] LABS: BASOPHIL 0.3 % (0-2.0); MCH 31.6 pg (25.7-33.7); MCHC 34.7 g/dl (32.0-35.9); MEAN CELL VOLUME 91.2 fl (80-96); MEAN PLT VOLUME 7.5 fl (7.5-11.1); NEUTROPHILS 81.9 % (42.8-82.8); PLATELET COUNT 159 K/MM3 (134-434); RDW 12.5 % (11.9-15.9); WHITE BLOOD COUNT 7.2 K/mm3 (4.0-10.0)
[2016-10-23 13:56] LABS: ANION GAP 11 (8-16); CALCIUM 8.7 mg/dL (8.5-10.1); CO2 27 mmol/L (21-32); GLUCOSE,RANDOM 106 mg/dL (74-106)
[2016-10-23] MEDS ORDERED: levETIRAcetam 500 MG/5 ML INJECTION VIAL IVPB ONE (15:00)
[2016-10-23] MEDS: KCL 10 MEQ IVPB 100 ML IVPB SCH ×2 (15:05→17:17)
--- NOTE | 2016-10-23 16:30 | EKG ---
Test Reason : Blood Pressure : / mmHG Vent. Rate : 116 BPM Atrial Rate : 116 BPM P-R Int : 136 ms QRS Dur : 104 ms QT Int : 376 ms P-R-T Axes : 046 -49 042 degrees QTc Int : 522 ms SINUS TACHYCARDIA WITH PREMATURE ATRIAL COMPLEXES LEFT ANTERIOR FASCICULAR BLOCK MINIMAL VOLTAGE CRITERIA FOR LVH, MAY BE NORMAL VARIANT PROLONGED QT ABNORMAL ECG WHEN COMPARED WITH ECG OF 21-OCT-2016 16:21, NO SIGNIFICANT CHANGE WAS FOUND Confirmed by MATTHEW TOMLINSON MD ([id number]) on 10/23/2016 4:30:17 PM Referred By: DHARMESH CUI Confirmed By:MATTHEW TOMLINSON MD
--- NOTE | 2016-10-23 21:37 | PN ---
Progress Note, Physician Chief Complaint: EVENTS AND NOTES REVIEWED PATIENT NOW ON NEUROLOGICAL PROTOCOL CT HEAD REVIEWED IV KEPPRA GIVEN - Current Medication List Current Medications: Active Medications Acetaminophen (Tylenol -) 650 mg PO Q4H PRN PRN Reason: FEVER OR PAIN Benztropine Mesylate (Cogentin -) 1 mg PO BID [facility] Last Admin: 10/23/16 13:07 Dose: 1 mg Citalopram Hydrobromide (Celexa -) 20 mg PO DAILY [facility] Last Admin: 10/23/16 12:00 Dose: 20 mg Fentanyl (Sublimaze Injection -) 50 mcg IVPUSH [id number] PRN PRN Reason: PAIN Stop: 10/25/16 20:58 Potassium Chloride (Potassium Chloride 10 Meq Premix Ivpb -) 100 mls @ 100 mls/ hr IVPB ASDIR [facility] Stop: 10/24/16 15:44 Last Admin: 10/23/16 17:17 Dose: 100 mls/hr Olanzapine (Zyprexa -) 5 mg PO HS [facility] Last Admin: 10/22/16 23:32 Dose: 5 mg Phenytoin Sodium (Dilantin Chewable Tablet -) 200 mg PO BID [facility] Last Admin: 10/23/16 12:01 Dose: 200 mg Risperidone (Risperdal -) 2 mg PO BID [facility] Last Admin: 10/23/16 13:06 Dose: 2 mg Senna (Senna -) 1 tab PO BID [facility] Last Admin: 10/23/16 12:00 Dose: 1 tab Zonisamide (Zonegran -) 200 mg PO DAILY [facility] Last Admin: 10/23/16 13:06 Dose: 200 mg - Objective Vital Signs: Vital Signs Temperature 98.8 F 10/23/16 20:15 Pulse Rate 84 10/23/16 20:15 Respiratory Rate 18 10/23/16 20:46 Blood Pressure 113/66 10/23/16 20:15 O2 Sat by Pulse Oximetry (%) 98 10/23/16 20:46 Constitutional: Yes: Mild Distress Eyes: Yes: WNL HENT: Yes: WNL Neck: Yes: WNL Cardiovascular: Yes: WNL Respiratory: Yes: WNL Gastrointestinal: Yes: WNL Genitourinary: Yes: Incontinence Musculoskeletal: Yes: Muscle Weakness Extremities: Yes: WNL Edema: No Peripheral Pulses WNL: Yes Integumentary: Yes: WNL Wound/Incision: Yes: Clean/Dry Neurological: Yes: Confusion, Pre-Existing Deficit ...Motor Strength: LLE, RLE Psychiatric: Yes: Other Labs: CBC, BMP 10/23/16 13:20 10/23/16 13:20 INR, PTT INR 1.50 (0.82-1.09) H 10/23/16 12:40 Problem List - Problems (1) Kidney failure Code(s): N19 - UNSPECIFIED KIDNEY FAILURE Qualifiers: Renal failure chronicity: unspecified chronicity Qualified Code(s): N19 - Unspecified kidney failure (2) Acute on chronic renal failure Code(s): N17.9 - ACUTE KIDNEY FAILURE, UNSPECIFIED N18.9 - CHRONIC KIDNEY DISEASE, UNSPECIFIED Assessment/Plan NEUROLOGY CONSULT PRECAUTIONS WITH NEUROCHECK ALL STARTED IV KEPPRA GIVEN LABS EKG REVIEWED HYPOKALEMIA REPLETED KCL ACCESS FOR HEMODIALYSIS WITH HD COMPLETED NEPHROLOGY EVAL APPRECIATED OOB TO CHAIR WITH ASSIST ANEMIA WORKUP FALL PRECAUTIONS
[2016-10-23] MEDS: OLANZapine 5 MG TABLET PO SCH (22:48)
[2016-10-24 08:32] LABS: MCH 31.8 pg (25.7-33.7); MEAN CELL VOLUME 90.7 fl (80-96); MEAN PLT VOLUME 7.3 fl (7.5-11.1); PLATELET COUNT 151 K/MM3 (134-434); RDW 12.4 % (11.9-15.9); WHITE BLOOD COUNT 5.7 K/mm3 (4.0-10.0)
[2016-10-24 08:59] LABS: ANION GAP 10 (8-16); CO2 25 mmol/L (21-32); GLUCOSE,RANDOM 100 mg/dL (74-106)
[2016-10-24 09:01] LABS: CREATININE 4.2 mg/dL (0.7-1.3)
[2016-10-24] MEDS ORDERED: PT OWN MED DRAWER 7, Y5N ONE ×3 (09:22→22:06)
[2016-10-24] MEDS: PHENYTOIN 50 MG TAB.CHEW PO SCH ×3 (09:25→22:14)
[2016-10-24] MEDS: BENZTROPINE MESYLATE 1 MG TABLET (FP) PO SCH ×3 (09:27→22:13)
[2016-10-24] MEDS: risperiDONE 1 MG TABLET (FP) PO SCH ×3 (09:27→22:14)
[2016-10-24] MEDS: ZONISAMIDE 100 MG CAPSULE PO SCH ×2 (09:28→11:34)
[2016-10-24] MEDS: SENNOSIDES 8.6MG TABLET (FP) PO SCH ×3 (09:28→22:14)
[2016-10-24] MEDS: CITALOPRAM HYDROBROMIDE 20 MG TABLET (FP) PO SCH ×2 (09:31→11:32)
--- NOTE | 2016-10-24 09:34 | PN ---
Progress Note (short form) - Note Progress Note: RENAL Pt seen and examined was comfortable Last Vital Signs Temp Pulse Resp BP Pulse Ox 98.2 F 87 20 102/69 98 10/24/16 06:37 10/24/16 06:37 10/24/16 06:37 10/24/16 06:37 10/23/16 20:46 lungs clear cvs s1s2 rr abd soft ext +trace edema neuro a+o CBC, BMP 10/24/16 08:10 10/24/16 08:10 Current Medications Generic Name Dose Route Start Last Admin Trade Name Freq PRN Reason Stop Dose Admin Acetaminophen 650 mg 10/22/16 20:48 Tylenol - PO Q4H PRN FEVER OR PAIN Benztropine Mesylate 1 mg 10/22/16 23:30 10/24/16 09:27 Cogentin - PO 1 mg BID GEOVANNA Administration Citalopram Hydrobromide 20 mg 10/23/16 10:00 10/24/16 09:31 Celexa - PO 20 mg DAILY GEOVANNA Administration Fentanyl 50 mcg 10/22/16 20:57 Sublimaze Injection - IVPUSH 10/25/16 20:58 [id number] PRN PAIN Potassium Chloride 100 mls @ 100 mls/hr 10/23/16 14:45 10/23/16 17:17 Potassium Chloride 10 Meq Premix Ivpb - IVPB 10/24/16 15:44 100 mls/hr ASDIR GEOVANNA Administration Olanzapine 5 mg 10/22/16 23:30 10/23/16 22:48 Zyprexa - PO 5 mg HS GEOVANNA Administration Phenytoin Sodium 200 mg 10/22/16 23:30 10/24/16 09:25 Dilantin Chewable Tablet - PO 200 mg BID GEOVANNA Administration Risperidone 2 mg 10/22/16 23:30 10/24/16 09:27 Risperdal - PO 2 mg BID GEOVANNA Administration Senna 1 tab 10/23/16 10:00 10/24/16 09:28 Senna - PO 1 tab BID GEOVANNA Administration Zonisamide 200 mg 10/23/16 10:00 10/24/16 09:28 Zonegran - PO 200 mg DAILY GEOVANNA Administration IMPRESSION CKD stage 5 probably due to DM anemia seizure disorder ?schizophrenia PLAN will be dialyzed tomorrow will need to make arrangements for HD at [facility] can start KT as well start calcium acetate with meals MV
--- NOTE | 2016-10-24 10:59 | PN ---
Progress Note, Physician Chief Complaint: awake alert "i am at [facility]" refusing meds - Current Medication List Current Medications: Active Medications Acetaminophen (Tylenol -) 650 mg PO Q4H PRN PRN Reason: FEVER OR PAIN Benztropine Mesylate (Cogentin -) 1 mg PO BID [facility] Last Admin: 10/24/16 09:27 Dose: 1 mg Calcium Acetate (Phoslo -) 667 mg PO TIDCM [facility] Citalopram Hydrobromide (Celexa -) 20 mg PO DAILY [facility] Last Admin: 10/24/16 09:31 Dose: 20 mg Epoetin Joao (Procrit -) 4,000 unit SQ ONCE ONE Stop: 10/24/16 09:35 Fentanyl (Sublimaze Injection -) 50 mcg IVPUSH [id number] PRN PRN Reason: PAIN Stop: 10/25/16 20:58 Heparin Sodium (Porcine) (Heparin -) 1,000 unit IVPUSH ONCE ONE Stop: 10/24/16 09:35 Potassium Chloride (Potassium Chloride 10 Meq Premix Ivpb -) 100 mls @ 100 mls/ hr IVPB ASDIR [facility] Stop: 10/24/16 15:44 Last Admin: 10/23/16 17:17 Dose: 100 mls/hr Levetiracetam (Keppra Injection -) 500 mg IVPB BID [facility] Olanzapine (Zyprexa -) 5 mg PO HS [facility] Last Admin: 10/23/16 22:48 Dose: 5 mg Phenytoin Sodium (Dilantin Chewable Tablet -) 200 mg PO BID [facility] Last Admin: 10/24/16 09:25 Dose: 200 mg Phenytoin Sodium (Dilantin Injection -) 100 mg IVPB ONCE ONE Stop: 10/24/16 10:55 Risperidone (Risperdal -) 2 mg PO BID [facility] Last Admin: 10/24/16 09:27 Dose: 2 mg Senna (Senna -) 1 tab PO BID [facility] Last Admin: 10/24/16 09:28 Dose: 1 tab Zonisamide (Zonegran -) 200 mg PO DAILY [facility] Last Admin: 10/24/16 09:28 Dose: 200 mg - Objective Vital Signs: Vital Signs Temperature 98.2 F 10/24/16 06:37 Pulse Rate 87 10/24/16 06:37 Respiratory Rate 20 10/24/16 06:37 Blood Pressure 102/69 10/24/16 06:37 O2 Sat by Pulse Oximetry (%) 98 10/23/16 20:46 Constitutional: Yes: Mild Distress Eyes: Yes: WNL HENT: Yes: WNL Neck: Yes: WNL Cardiovascular: Yes: WNL Respiratory: Yes: WNL Gastrointestinal: Yes: WNL, Other ...Rectal Exam: Yes: WNL Genitourinary: Yes: WNL Musculoskeletal: Yes: Muscle Weakness Extremities: Yes: WNL Edema: No Peripheral Pulses WNL: Yes Integumentary: Yes: WNL Wound/Incision: Yes: Clean/Dry Neurological: Yes: Pre-Existing Deficit, Other Psychiatric: Yes: Agitated, Other Labs: CBC, BMP 10/24/16 08:10 10/24/16 08:10 INR, PTT INR 1.50 (0.82-1.09) H 10/23/16 12:40 Problem List - Problems (1) Kidney failure Code(s): N19 - UNSPECIFIED KIDNEY FAILURE Qualifiers: Renal failure chronicity: unspecified chronicity Qualified Code(s): N19 - Unspecified kidney failure (2) Acute on chronic renal failure Code(s): N17.9 - ACUTE KIDNEY FAILURE, UNSPECIFIED N18.9 - CHRONIC KIDNEY DISEASE, UNSPECIFIED (3) Anemia Code(s): D64.9 - ANEMIA, UNSPECIFIED Qualifiers: Other causes of anemia: chronic disease, other (4) Chronic anemia Code(s): D64.9 - ANEMIA, UNSPECIFIED Assessment/Plan TRANSFUSE 1 UNIT PRBC REFUSING MEDICATIONS I CALLED MATTHEW HIS DAUGHTER AND WAITING FOR REPLY VANESSA CHAMPAGNE AND MARCO A ORDERED NEUROLOGY CONSULT PENDING NEURO CHECKS CONTINUE
[2016-10-24] MEDS ORDERED: PHENYTOIN SODIUM 100 MG/2 ML VIAL IVPB ONE (12:00)
[2016-10-24] MEDS: levETIRAcetam 500 MG/5 ML INJECTION VIAL IVPB SCH ×2 (12:30→22:14)
--- NOTE | 2016-10-24 13:29 | PN ---
Progress Note (short form) - Note Progress Note: addendum: patient with schizophrenia maintained on oral medication Problem List - Problems (1) Kidney failure Code(s): N19 - UNSPECIFIED KIDNEY FAILURE Qualifiers: Renal failure chronicity: unspecified chronicity Qualified Code(s): N19 - Unspecified kidney failure (2) Acute on chronic renal failure Code(s): N17.9 - ACUTE KIDNEY FAILURE, UNSPECIFIED N18.9 - CHRONIC KIDNEY DISEASE, UNSPECIFIED (3) Anemia Code(s): D64.9 - ANEMIA, UNSPECIFIED Qualifiers: Other causes of anemia: chronic disease, other (4) Chronic anemia Code(s): D64.9 - ANEMIA, UNSPECIFIED
--- NOTE | 2016-10-24 17:55 | CON.PSY ---
Psychiatry Consult Chief Complaint: uncoperative, refusing to talk, very suspicious. Symptoms: reports: Paranoia, Oppositionalism - Previous Psychiatric Treatment Outpatient: Less than 6 mos ago Inpatient: 2 or more prior admissions - Previous Substance Abuse Treatment Outpatient: None Inpatient: None - Reason for Previous Treatment Reason for Previous Treatment: Psychotic Episode - Current Medications Current Medications: Active Medications Acetaminophen (Tylenol -) 650 mg PO Q4H PRN PRN Reason: FEVER OR PAIN Benztropine Mesylate (Cogentin -) 1 mg PO BID [facility] Last Admin: 10/24/16 11:28 Dose: Not Given Calcium Acetate (Phoslo -) 667 mg PO TIDCM [facility] Citalopram Hydrobromide (Celexa -) 20 mg PO DAILY [facility] Last Admin: 10/24/16 11:32 Dose: Not Given Epoetin Joao (Procrit -) 4,000 unit SQ ONCE ONE Stop: 10/24/16 09:35 Fentanyl (Sublimaze Injection -) 50 mcg IVPUSH [id number] PRN PRN Reason: PAIN Stop: 10/25/16 20:58 Heparin Sodium (Porcine) (Heparin -) 1,000 unit IVPUSH ONCE ONE Stop: 10/24/16 09:35 Levetiracetam (Keppra Injection -) 500 mg IVPB BID [facility] Last Admin: 10/24/16 12:30 Dose: 500 mg Olanzapine (Zyprexa -) 5 mg PO HS [facility] Last Admin: 10/23/16 22:48 Dose: 5 mg Phenytoin Sodium (Dilantin Chewable Tablet -) 200 mg PO BID [facility] Last Admin: 10/24/16 11:33 Dose: Not Given Risperidone (Risperdal -) 2 mg PO BID [facility] Last Admin: 10/24/16 11:33 Dose: Not Given Senna (Senna -) 1 tab PO BID [facility] Last Admin: 10/24/16 11:33 Dose: Not Given Zonisamide (Zonegran -) 200 mg PO DAILY [facility] Last Admin: 10/24/16 11:34 Dose: Not Given - Allergies Allergies: Allergies Allergy/AdvReac Type Severity Reaction Status Date / Time No Known Allergies Allergy Verified 10/21/16 09:31 - Current Living Status Usual Living Arrangement: Penitentiary - Current Mental Status Evaluation Appearance: Disheveled Attitude: Uncooperative - Affect Affect: Constrictive Appropriateness: Not Appropriate - Mood Mood: Irritable - Speech/Language Expressive: Delayed - Psychomotor Activity Psychomotor Activity: Slowed - Thought Process Thought Process: Circumstantial - Thought Content Hallucinations: Absent Delusions: Present Type: Persectory - Self Perception Self Perception: No Impairment - Cognition Attention: Alert Orientation: Time Memory, Immediate Recall: Impaired Memory, Short Term: 1/3 Memory, Remote with Promptin/3 - Concentration Serial Sevens Intact: No Simple Calculations Intact: No - Abstraction Proverb Interpretation: Impaired Judgement: Severely Impaired - Insight Insight: Impaired - Impulse Control Impulse Control: Moderately Impaired - Suicidal Ideation Suicidal Ideation: No - Homicidal Ideation Homicidal Ideation: No Assessment/Plan Patient refusing meds and medical treatment at this time and has poor insight into his medical conditionms at this time due to acute Psychosisd. plan: Haldo Decanoate 25mg IM.
--- NOTE | 2016-10-24 18:34 | CONSULT ---
Consult - text type - Consultation Consultation Note: NEUROLOGY CONSULTATION is greatly appreciated: This 60 yo RH man with h/o Schizophrenia, ESRD, and seizure disorder is maintained on multiple neuroleptics, cogentin, phentytoin (200 BID) and Zonisamide (200 qd). Admitted in reanl failure for first HD via permaacath. After HD had a witnessed seizure. DPH level was 8.0 ug%. Pt. gives h/o recurrent seizures since childhood. Warned by a stereotyped sensation of "fear" which can pass spontaneously or be succeeded by LOC and seizure activity. 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 PAT: No head trauma. Neuro: Awake, alert, cooperative. Mild OMS CN II-XII: Normal Motor: No tremor. No drift. Min cogwheeling. Normal strength. Normal reflexes except absent AJ's. Toes downgoing. Coord: No FTN dystaxia Sensory: Normal. Romberg neg Gait: Sl. wide-based and flexed. 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 Suggest: Continue zonisamide 200 mg qd and Dilantin 200 BID Give AM meds AFTER HD on HD days. Thank you very much, Earl Ramos MD
[2016-10-24] MEDS: KCL 10 MEQ IVPB 100 ML IVPB SCH (19:09)
[2016-10-24] MEDS: CALCIUM ACETATE 667 MG CAPSULE (FP) PO SCH ×2 (19:15→19:19)
[2016-10-24] MEDS ORDERED: HALOPERIDOL LACTATE 5 MG/ML ONE (20:09)
[2016-10-24] MEDS: HALOPERIDOL DECANOATE 100 MG/ML IM ONE ×2 (20:21→22:13)
[2016-10-24] MEDS: OLANZapine 5 MG TABLET PO SCH (22:14)
[2016-10-25] MEDS ORDERED: EPOETIN ALFA 2,000 UNITS/1 ML VIAL SQ ONE (08:00)
[2016-10-25] MEDS ORDERED: HEPARIN NA (PORCINE) 5,000 UNITS/ML 1ML VIAL IVPUSH ONE (08:00)
[2016-10-25 08:12] LABS: MCH 31.6 pg (25.7-33.7); MCHC 35.2 g/dl (32.0-35.9); MEAN CELL VOLUME 89.8 fl (80-96); MEAN PLT VOLUME 7.5 fl (7.5-11.1); PLATELET COUNT 163 K/MM3 (134-434); RDW 12.9 % (11.9-15.9); WHITE BLOOD COUNT 6.3 K/mm3 (4.0-10.0)
--- NOTE | 2016-10-25 09:06 | PN ---
Progress Note (short form) - Note Progress Note: RENAL Pt seen and examined was comfortable had a seizure vyester Last Vital Signs Temp Pulse Resp BP Pulse Ox 98.2 F 81 18 117/78 98 10/25/16 06:55 10/25/16 08:59 10/25/16 08:59 10/25/16 08:59 10/24/16 21:00 lungs clear cvs s1s2 rr abd soft ext +trace edema neuro a+o CBC, BMP 10/25/16 08:00 10/24/16 08:10 Current Medications Generic Name Dose Route Start Last Admin Trade Name Freq PRN Reason Stop Dose Admin Acetaminophen 650 mg 10/22/16 20:48 Tylenol - PO Q4H PRN FEVER OR PAIN Benztropine Mesylate 1 mg 10/22/16 23:30 10/24/16 22:13 Cogentin - PO Not Given BID [facility] Calcium Acetate 667 mg 10/24/16 12:00 10/24/16 19:19 Phoslo - PO Not Given TIDCM [facility] Citalopram Hydrobromide 20 mg 10/23/16 10:00 10/24/16 11:32 Celexa - PO Not Given DAILY [facility] Fentanyl 50 mcg 10/22/16 20:57 Sublimaze Injection - IVPUSH 10/25/16 20:58 [id number] PRN PAIN Levetiracetam 500 mg 10/24/16 12:00 10/24/16 22:14 Keppra Injection - IVPB Not Given BID [facility] Olanzapine 5 mg 10/22/16 23:30 10/24/16 22:14 Zyprexa - PO Not Given HS [facility] Phenytoin Sodium 200 mg 10/22/16 23:30 10/24/16 22:14 Dilantin Chewable Tablet - PO Not Given BID [facility] Risperidone 2 mg 10/22/16 23:30 10/24/16 22:14 Risperdal - PO Not Given BID [facility] Senna 1 tab 10/23/16 10:00 10/24/16 22:14 Senna - PO Not Given BID [facility] Zonisamide 200 mg 10/23/16 10:00 10/24/16 11:34 Zonegran - PO Not Given DAILY [facility] IMPRESSION CKD stage 5 probably due to DM anemia seizure disorder ?schizophrenia PLAN may get his AED today during HD will need to make arrangements for HD at [facility] no KT for now given possibility of seizures with it continiue calcium acetate with meals [facility]
--- NOTE | 2016-10-25 09:52 | PN ---
Progress Note, Physician History of Present Illness: in dialysis no complaints - Current Medication List Current Medications: Active Medications Acetaminophen (Tylenol -) 650 mg PO Q4H PRN PRN Reason: FEVER OR PAIN Benztropine Mesylate (Cogentin -) 1 mg PO BID [facility] Last Admin: 10/24/16 22:13 Dose: Not Given Calcium Acetate (Phoslo -) 667 mg PO TIDCM [facility] Last Admin: 10/24/16 19:19 Dose: Not Given Citalopram Hydrobromide (Celexa -) 20 mg PO DAILY [facility] Last Admin: 10/24/16 11:32 Dose: Not Given Fentanyl (Sublimaze Injection -) 50 mcg IVPUSH [id number] PRN PRN Reason: PAIN Stop: 10/25/16 20:58 Levetiracetam (Keppra Injection -) 500 mg IVPB BID [facility] Last Admin: 10/24/16 22:14 Dose: Not Given Olanzapine (Zyprexa -) 5 mg PO HS [facility] Last Admin: 10/24/16 22:14 Dose: Not Given Phenytoin Sodium (Dilantin Chewable Tablet -) 200 mg PO BID [facility] Last Admin: 10/24/16 22:14 Dose: Not Given Risperidone (Risperdal -) 2 mg PO BID [facility] Last Admin: 10/24/16 22:14 Dose: Not Given Senna (Senna -) 1 tab PO BID [facility] Last Admin: 10/24/16 22:14 Dose: Not Given Zonisamide (Zonegran -) 200 mg PO DAILY [facility] Last Admin: 10/24/16 11:34 Dose: Not Given - Objective Vital Signs: Vital Signs Temperature 98.2 F 10/25/16 06:55 Pulse Rate 100 H 10/25/16 09:30 Respiratory Rate 18 10/25/16 09:30 Blood Pressure 107/56 10/25/16 09:30 O2 Sat by Pulse Oximetry (%) 98 10/24/16 21:00 Cardiovascular: Yes: S1, S2 Respiratory: Yes: Regular, CTA Bilaterally Gastrointestinal: Yes: Normal Bowel Sounds, Soft Labs: CBC, BMP 10/25/16 08:00 10/24/16 08:10 INR, PTT INR 1.50 (0.82-1.09) H 10/23/16 12:40 Problem List - Problems (1) Acute on chronic renal failure Assessment/Plan: dialysis per renal Code(s): N17.9 - ACUTE KIDNEY FAILURE, UNSPECIFIED N18.9 - CHRONIC KIDNEY DISEASE, UNSPECIFIED (2) Chronic anemia Assessment/Plan: monitor Code(s): D64.9 - ANEMIA, UNSPECIFIED (3) Schizo-affective schizophrenia, chronic condition Assessment/Plan: meds per psych Code(s): F25.8 - OTHER SCHIZOAFFECTIVE DISORDERS (4) Diabetes Assessment/Plan: bgm Code(s): E11.9 - TYPE 2 DIABETES MELLITUS WITHOUT COMPLICATIONS Qualifiers: (5) Seizure Assessment/Plan: same meds' compliance with meds Code(s): R56.9 - UNSPECIFIED CONVULSIONS
[2016-10-25] MEDS ORDERED: PT OWN MED DRAWER 7, Y5N ONE ×3 (12:16→19:36)
[2016-10-25] MEDS: PHENYTOIN 50 MG TAB.CHEW PO SCH ×2 (12:21→21:10)
[2016-10-25] MEDS: BENZTROPINE MESYLATE 1 MG TABLET (FP) PO SCH ×2 (12:21→21:10)
[2016-10-25] MEDS: levETIRAcetam 500 MG/5 ML INJECTION VIAL IVPB SCH (12:22)
[2016-10-25] MEDS: CITALOPRAM HYDROBROMIDE 20 MG TABLET (FP) PO SCH (12:22)
[2016-10-25] MEDS: CALCIUM ACETATE 667 MG CAPSULE (FP) PO SCH ×3 (12:22→17:45)
[2016-10-25] MEDS: risperiDONE 1 MG TABLET (FP) PO SCH ×2 (12:22→21:10)
[2016-10-25] MEDS: SENNOSIDES 8.6MG TABLET (FP) PO SCH ×2 (12:26→21:10)
[2016-10-25] MEDS: ZONISAMIDE 100 MG CAPSULE PO SCH (12:27)
[2016-10-25] MEDS: OLANZapine 5 MG TABLET PO SCH (21:10)
[2016-10-25] MEDS: levETIRAcetam 500 MG TABLET (FP) PO SCH (21:10)
[2016-10-26] MEDS ORDERED: PT OWN MED DRAWER 7, Y5N ONE ×4 (08:47→11:38)
--- NOTE | 2016-10-26 09:21 | PN ---
Progress Note (short form) - Note Progress Note: RENAL Pt seen and examined was comfortable had a seizure two days ago Last Vital Signs Temp Pulse Resp BP Pulse Ox 99 F 88 18 117/75 98 10/26/16 06:00 10/26/16 06:00 10/26/16 06:00 10/26/16 06:00 10/25/16 21:00 lungs clear cvs s1s2 rr abd soft ext +trace edema neuro a+o CBC, BMP 10/25/16 08:00 10/24/16 08:10 Current Medications Generic Name Dose Route Start Last Admin Trade Name Freq PRN Reason Stop Dose Admin Acetaminophen 650 mg 10/22/16 20:48 Tylenol - PO Q4H PRN FEVER OR PAIN Benztropine Mesylate 1 mg 10/22/16 23:30 10/25/16 21:10 Cogentin - PO Not Given BID [facility] Calcium Acetate 667 mg 10/24/16 12:00 10/25/16 17:45 Phoslo - PO Not Given TIDCM [facility] Citalopram Hydrobromide 20 mg 10/23/16 10:00 10/25/16 12:22 Celexa - PO 20 mg DAILY [facility] Administration Levetiracetam 500 mg 10/25/16 16:33 10/25/16 21:10 Keppra - PO Not Given BID [facility] Olanzapine 5 mg 10/22/16 23:30 10/25/16 21:10 Zyprexa - PO Not Given HS [facility] Phenytoin Sodium 200 mg 10/22/16 23:30 10/25/16 21:10 Dilantin Chewable Tablet - PO Not Given BID [facility] Risperidone 2 mg 10/22/16 23:30 10/25/16 21:10 Risperdal - PO Not Given BID [facility] Senna 1 tab 10/23/16 10:00 10/25/16 21:10 Senna - PO Not Given BID [facility] Zonisamide 200 mg 10/23/16 10:00 10/25/16 12:27 Zonegran - PO Not Given DAILY [facility] IMPRESSION CKD stage 5 probably due to DM anemia seizure disorder ?schizophrenia PLAN re hd in 2 days will need to make arrangements for HD at [facility]- he lives there no KT for now given possibility of seizures with it continue calcium acetate with meals MV
[2016-10-26] MEDS: levETIRAcetam 500 MG TABLET (FP) PO SCH ×2 (09:52→21:32)
[2016-10-26] MEDS: PHENYTOIN 50 MG TAB.CHEW PO SCH ×2 (09:52→21:31)
[2016-10-26] MEDS: SENNOSIDES 8.6MG TABLET (FP) PO SCH ×2 (09:52→21:31)
[2016-10-26] MEDS: CITALOPRAM HYDROBROMIDE 20 MG TABLET (FP) PO SCH (09:53)
[2016-10-26] MEDS: BENZTROPINE MESYLATE 1 MG TABLET (FP) PO SCH ×2 (09:54→21:31)
[2016-10-26] MEDS: risperiDONE 1 MG TABLET (FP) PO SCH ×2 (09:54→21:31)
[2016-10-26] MEDS: ZONISAMIDE 100 MG CAPSULE PO SCH (09:54)
[2016-10-26] MEDS: CALCIUM ACETATE 667 MG CAPSULE (FP) PO SCH ×3 (09:55→17:26)
--- NOTE | 2016-10-26 10:24 | PN ---
Progress Note, Physician History of Present Illness: IN BED--NOT CONSISTENT WITH MEDS--STILL REFUSES no complaints - Current Medication List Current Medications: Active Medications Acetaminophen (Tylenol -) 650 mg PO Q4H PRN PRN Reason: FEVER OR PAIN Benztropine Mesylate (Cogentin -) 1 mg PO BID [facility] Last Admin: 10/26/16 09:54 Dose: Not Given Calcium Acetate (Phoslo -) 667 mg PO TIDCM [facility] Last Admin: 10/26/16 09:55 Dose: Not Given Citalopram Hydrobromide (Celexa -) 20 mg PO DAILY [facility] Last Admin: 10/26/16 09:53 Dose: Not Given Levetiracetam (Keppra -) 500 mg PO BID [facility] Last Admin: 10/26/16 09:52 Dose: Not Given Olanzapine (Zyprexa -) 5 mg PO HS [facility] Last Admin: 10/25/16 21:10 Dose: Not Given Phenytoin Sodium (Dilantin Chewable Tablet -) 200 mg PO BID [facility] Last Admin: 10/26/16 09:52 Dose: Not Given Risperidone (Risperdal -) 2 mg PO BID [facility] Last Admin: 10/26/16 09:54 Dose: Not Given Senna (Senna -) 1 tab PO BID [facility] Last Admin: 10/26/16 09:52 Dose: Not Given Zonisamide (Zonegran -) 200 mg PO DAILY [facility] Last Admin: 10/26/16 09:54 Dose: 200 mg - Objective Vital Signs: Vital Signs Temperature 99 F 10/26/16 06:00 Pulse Rate 88 10/26/16 06:00 Respiratory Rate 18 10/26/16 06:00 Blood Pressure 117/75 10/26/16 06:00 O2 Sat by Pulse Oximetry (%) 98 10/25/16 21:00 Cardiovascular: Yes: Regular Rate and Rhythm Respiratory: Yes: Regular, CTA Bilaterally Gastrointestinal: Yes: Normal Bowel Sounds, Soft Neurological: Yes: Alert Labs: CBC, BMP 10/25/16 08:00 10/24/16 08:10 INR, PTT INR 1.50 (0.82-1.09) H 10/23/16 12:40 Problem List - Problems (1) Acute on chronic renal failure Assessment/Plan: dialysis per renal Code(s): N17.9 - ACUTE KIDNEY FAILURE, UNSPECIFIED N18.9 - CHRONIC KIDNEY DISEASE, UNSPECIFIED (2) Chronic anemia Assessment/Plan: monitor Laboratory Tests 10/23/16 10/24/16 10/25/16 13:20 08:10 08:00 Hgb 8.2 L 7.4 L 8.5 L D Code(s): D64.9 - ANEMIA, UNSPECIFIED (3) Schizo-affective schizophrenia, chronic condition Assessment/Plan: meds per psych COMPLIANCE D/W PT Code(s): F25.8 - OTHER SCHIZOAFFECTIVE DISORDERS (4) Diabetes Assessment/Plan: CONTROLLED Laboratory Tests 10/22/16 10/23/16 10/23/16 06:10 12:04 13:20 POC Glucometer 105 Random Glucose 106 Hemoglobin A1c % 5.2 Code(s): E11.9 - TYPE 2 DIABETES MELLITUS WITHOUT COMPLICATIONS Qualifiers: (5) Seizure Assessment/Plan: same meds' compliance with meds d/w pt Code(s): R56.9 - UNSPECIFIED CONVULSIONS
[2016-10-26] MEDS ORDERED: INSULIN (NOVOLOG) ASPART 100 UNITS/ML 10ML VIAL ONE (11:38)
[2016-10-26] MEDS: OLANZapine 5 MG TABLET PO SCH (21:31)
[2016-10-27] MEDS ORDERED: PT OWN MED DRAWER 7, Y5N ONE ×4 (09:11→21:54)
[2016-10-27] MEDS: PHENYTOIN 50 MG TAB.CHEW PO SCH ×2 (09:12→21:33)
[2016-10-27] MEDS: levETIRAcetam 500 MG TABLET (FP) PO SCH ×2 (09:12→21:30)
[2016-10-27] MEDS: CALCIUM ACETATE 667 MG CAPSULE (FP) PO SCH ×3 (09:12→17:14)
[2016-10-27] MEDS: SENNOSIDES 8.6MG TABLET (FP) PO SCH ×2 (09:12→21:31)
[2016-10-27] MEDS: CITALOPRAM HYDROBROMIDE 20 MG TABLET (FP) PO SCH (09:12)
[2016-10-27] MEDS: ZONISAMIDE 100 MG CAPSULE PO SCH (09:13)
[2016-10-27] MEDS: risperiDONE 1 MG TABLET (FP) PO SCH ×2 (09:13→21:31)
[2016-10-27] MEDS: BENZTROPINE MESYLATE 1 MG TABLET (FP) PO SCH ×2 (09:14→21:34)
--- NOTE | 2016-10-27 11:39 | SPEC ---
DATE OF OPERATION: OPERATION: Insertion of Perma-Cath SURGEON: Jorge Luis Lewis M.D. ANESTHESIA: Fractional ANESTHESIOLOGIST: Dr. Pierce PROCEDURE: Following intravenous sedation, the patient was placed in the Trendelenburg position. The neck and chest were prepped with Betadine solution. 1% Xylocaine was infiltrated subcutaneously in the neck and the internal jugular vein cannulated with a fine needle. A fine flexible wire was passed proximally under fluoroscopic guidance into the superior vena cava. The tract around the wire was dilated and the wire was exchanged for a larger diameter wire. Additional Xylocaine was infiltrated on the chest wall and a stab wound made beneath the clavicle. With the aid of a tunneler, the catheter was passed from chest to neck to exit next the wire. The tract around the wire was again dilated and the introducer placed into the superior vena cava. The wire and the dilator were removed. The Perma-Cath was then passed through the introducer and the tips positioned in the right atrium. The introducer was peeled away, leaving the catheter in place. Each lumen was aspirated for blood and flushed with saline and Heparin solution. The neck wound was closed with a subcuticular suture of 4-0 Vicryl and the catheter was sutured to the skin at the exit site with 3-0 Nylon. Sterile dressings were applied and the patient was taken to the recovery room for a chest x-ray. JORGE LUIS LEWIS M.D. SOURAV/[id number]
--- NOTE | 2016-10-27 12:48 | PN ---
Progress Note, Physician History of Present Illness: Pt seen and examined at bedside. He is awake and alert. He is sitting up and appears comfortable. He denies shortness of breath. - Current Medication List Current Medications: Active Medications Acetaminophen (Tylenol -) 650 mg PO Q4H PRN PRN Reason: FEVER OR PAIN Benztropine Mesylate (Cogentin -) 1 mg PO BID [facility] Last Admin: 10/27/16 09:14 Dose: 1 mg Calcium Acetate (Phoslo -) 667 mg PO TIDCM [facility] Last Admin: 10/27/16 11:06 Dose: 667 mg Citalopram Hydrobromide (Celexa -) 20 mg PO DAILY [facility] Last Admin: 10/27/16 09:12 Dose: 20 mg Levetiracetam (Keppra -) 500 mg PO BID [facility] Last Admin: 10/27/16 09:12 Dose: 500 mg Olanzapine (Zyprexa -) 5 mg PO HS [facility] Last Admin: 10/26/16 21:31 Dose: Not Given Phenytoin Sodium (Dilantin Chewable Tablet -) 200 mg PO BID [facility] Last Admin: 10/27/16 09:12 Dose: 200 mg Risperidone (Risperdal -) 2 mg PO BID [facility] Last Admin: 10/27/16 09:13 Dose: 2 mg Senna (Senna -) 1 tab PO BID [facility] Last Admin: 10/27/16 09:12 Dose: 1 tab Zonisamide (Zonegran -) 200 mg PO DAILY [facility] Last Admin: 10/27/16 09:13 Dose: 200 mg - Objective Vital Signs: Vital Signs Temperature 98.9 F 10/27/16 06:04 Pulse Rate 115 H 10/27/16 11:00 Respiratory Rate 18 10/27/16 07:47 Blood Pressure 152/98 10/27/16 06:04 O2 Sat by Pulse Oximetry (%) 97 10/27/16 11:00 Constitutional: Yes: Calm Eyes: Yes: Conjunctiva Clear HENT: Yes: Atraumatic Neck: Yes: Supple Cardiovascular: Yes: S1, S2 Respiratory: Yes: CTA Bilaterally Gastrointestinal: Yes: Soft Genitourinary: Yes: WNL Musculoskeletal: Yes: WNL Edema: No Neurological: Yes: Oriented Labs: CBC, BMP 10/25/16 08:00 10/24/16 08:10 INR, PTT INR 1.50 (0.82-1.09) H 10/23/16 12:40 Problem List - Problems (1) Acute on chronic renal failure Code(s): N17.9 - ACUTE KIDNEY FAILURE, UNSPECIFIED N18.9 - CHRONIC KIDNEY DISEASE, UNSPECIFIED (2) Anemia Code(s): D64.9 - ANEMIA, UNSPECIFIED Qualifiers: Other causes of anemia: chronic disease, other (3) ESRD (end stage renal disease) Code(s): N18.6 - END STAGE RENAL DISEASE Assessment/Plan Current Medications Generic Name Dose Route Start Last Admin Trade Name Freq PRN Reason Stop Dose Admin Acetaminophen 650 mg 10/22/16 20:48 Tylenol - PO Q4H PRN FEVER OR PAIN Benztropine Mesylate 1 mg 10/22/16 23:30 10/27/16 09:14 Cogentin - PO 1 mg BID [facility] Administration Calcium Acetate 667 mg 10/24/16 12:00 10/27/16 11:06 Phoslo - PO 667 mg TIDCM [facility] Administration Citalopram Hydrobromide 20 mg 10/23/16 10:00 10/27/16 09:12 Celexa - PO 20 mg DAILY [facility] Administration Levetiracetam 500 mg 10/25/16 16:33 10/27/16 09:12 Keppra - PO 500 mg BID [facility] Administration Olanzapine 5 mg 10/22/16 23:30 10/26/16 21:31 Zyprexa - PO Not Given HS [facility] Phenytoin Sodium 200 mg 10/22/16 23:30 10/27/16 09:12 Dilantin Chewable Tablet - PO 200 mg BID [facility] Administration Risperidone 2 mg 10/22/16 23:30 10/27/16 09:13 Risperdal - PO 2 mg BID [facility] Administration Senna 1 tab 10/23/16 10:00 10/27/16 09:12 Senna - PO 1 tab BID [facility] Administration Zonisamide 200 mg 10/23/16 10:00 10/27/16 09:13 Zonegran - PO 200 mg DAILY [facility] Administration Impression 1. CKD 5/ESRD 2. DM 3. anemia 4. seizure disorder 5. schizophrenia 6. epilepsy Plan - HD in am - will order bloodwork for the morning - will need placement, can get HD in [facility] dialysis - check potassium level in am, will likely need a 3K bath - will follow Dr Aguilar
--- NOTE | 2016-10-27 17:06 | DS ---
Physical Examination Vital Signs: Vital Signs Temperature 99.1 F 10/27/16 14:12 Pulse Rate 108 H 10/27/16 14:12 Respiratory Rate 20 10/27/16 14:12 Blood Pressure 116/74 10/27/16 14:12 O2 Sat by Pulse Oximetry (%) 97 10/27/16 11:00 Constitutional: Yes: No Distress Eyes: Yes: WNL HENT: Yes: WNL Neck: Yes: WNL Cardiovascular: Yes: WNL Respiratory: Yes: WNL Gastrointestinal: Yes: WNL Renal/: Yes: WNL Musculoskeletal: Yes: WNL Extremities: Yes: WNL Edema: No Peripheral Pulses WNL: Yes Integumentary: Yes: WNL Wound/Incision: Yes: Clean/Dry Neurological: Yes: Pre-Existing Deficit ...Motor Strength: LLE, RLE Psychiatric: Yes: Other Labs: CBC, BMP 10/25/16 08:00 10/24/16 08:10 Discharge Summary Reason For Visit: RENAL FAILURE Current Active Problems Acute on chronic renal failure (Acute) Anemia (Acute) Chronic anemia (Acute) Diabetes (Acute) ESRD (end stage renal disease) (Acute) Kidney failure (Acute) Schizo-affective schizophrenia, chronic condition (Acute) Seizure (Acute) Procedures: Principal: HEMODIALYSIS Hospital Course: ADMITTED FOR NEW HD, ACCESS FOR HD AND LABS ORDERED, WILL DC TO SNF TOMORROW [facility] INVESTIGATOR FRAUD FOR PLACEMENT AT [facility] Condition: Improved - Instructions Diet, Activity, Other Instructions: RENAL Referrals: Temo Davidson [Primary Care Provider] - Disposition: HALF-WAY FACILITY - Home Medications Comprehensive Discharge Medication List: Ambulatory Orders Benztropine Mesylate [Cogentin -] 1 mg PO BID 10/21/16 Citalopram Hydrobromide [Celexa -] 20 mg PO DAILY 10/21/16 Olanzapine [Zyprexa -] 5 mg PO BID 10/21/16 Phenytoin Na Extended [Dilantin -] 200 mg PO BID 10/21/16 Risperidone [Risperdal] 2 mg PO BID 10/21/16 Sennosides [Senno] 17.2 mg PO BID PRN 10/21/16 Zonisamide 200 mg PO DAILY 10/21/16
[2016-10-27] MEDS: OLANZapine 5 MG TABLET PO SCH (21:31)
[2016-10-28 07:49] LABS: BASOPHIL 0.4 % (0-2.0); EOSINOPHIL 5.1 % (0-4.5); MCHC 35.3 g/dl (32.0-35.9); MEAN CELL VOLUME 90.7 fl (80-96); MEAN PLT VOLUME 7.8 fl (7.5-11.1); NEUTROPHILS 66.3 % (42.8-82.8); PLATELET COUNT 145 K/MM3 (134-434); RDW 12.5 % (11.9-15.9); WHITE BLOOD COUNT 6.8 K/mm3 (4.0-10.0)
[2016-10-28 08:03] LABS: ALBUMIN 2.8 g/dl (3.4-5.0); ALK PHOS 186 U/L (45-117); ANION GAP 10 (8-16); BILIRUBIN,TOTAL 0.2 mg/dL (0.2-1.0); CALCIUM 7.5 mg/dL (8.5-10.1); CO2 26 mmol/L (21-32); CREATININE 5.5 mg/dL (0.7-1.3); GLUCOSE,RANDOM 89 mg/dL (74-106); SGOT/AST 23 U/L (15-37); SGPT/ALT 24 U/L (12-78)
[2016-10-28] MEDS: levETIRAcetam 500 MG TABLET (FP) PO SCH (09:11)
[2016-10-28] MEDS: risperiDONE 1 MG TABLET (FP) PO SCH (09:11)
[2016-10-28] MEDS: CITALOPRAM HYDROBROMIDE 20 MG TABLET (FP) PO SCH (09:11)
[2016-10-28] MEDS: CALCIUM ACETATE 667 MG CAPSULE (FP) PO SCH ×2 (09:11→12:00)
[2016-10-28] MEDS: SENNOSIDES 8.6MG TABLET (FP) PO SCH (09:11)
[2016-10-28] MEDS: PHENYTOIN 50 MG TAB.CHEW PO SCH (09:13)
[2016-10-28] MEDS: BENZTROPINE MESYLATE 1 MG TABLET (FP) PO SCH (09:13)
[2016-10-28] MEDS: ZONISAMIDE 100 MG CAPSULE PO SCH (09:14)
[2016-10-28] MEDS ORDERED: POTASSIUM CHLORIDE TABS 20 MEQ TABLET.ER (FP) PO ONE (09:45)
[2016-10-28 10:33] LABS: MAGNESIUM 2.2 mg/dL (1.8-2.4)
--- NOTE | 2016-10-28 13:12 | PN ---
Progress Note, Physician History of Present Illness: Pt seen and examined at bedside. He is awake and alert. He denies shortness of breath or chest pain. - Current Medication List Current Medications: Active Medications Acetaminophen (Tylenol -) 650 mg PO Q4H PRN PRN Reason: FEVER OR PAIN Benztropine Mesylate (Cogentin -) 1 mg PO BID [facility] Last Admin: 10/28/16 09:13 Dose: 1 mg Calcium Acetate (Phoslo -) 667 mg PO TIDCM [facility] Last Admin: 10/28/16 09:11 Dose: 667 mg Citalopram Hydrobromide (Celexa -) 20 mg PO DAILY [facility] Last Admin: 10/28/16 09:11 Dose: 20 mg Levetiracetam (Keppra -) 500 mg PO BID [facility] Last Admin: 10/28/16 09:11 Dose: 500 mg Olanzapine (Zyprexa -) 5 mg PO HS [facility] Last Admin: 10/27/16 21:31 Dose: 5 mg Phenytoin Sodium (Dilantin Chewable Tablet -) 200 mg PO BID [facility] Last Admin: 10/28/16 09:13 Dose: 200 mg Risperidone (Risperdal -) 2 mg PO BID [facility] Last Admin: 10/28/16 09:11 Dose: 2 mg Senna (Senna -) 1 tab PO BID [facility] Last Admin: 10/28/16 09:11 Dose: 1 tab Zonisamide (Zonegran -) 200 mg PO DAILY [facility] Last Admin: 10/28/16 09:14 Dose: 200 mg - Objective Vital Signs: Vital Signs Temperature 98.6 F 10/28/16 09:10 Pulse Rate 102 H 10/28/16 09:48 Respiratory Rate 18 10/28/16 09:10 Blood Pressure 108/69 10/28/16 09:10 O2 Sat by Pulse Oximetry (%) 96 10/28/16 09:48 Constitutional: Yes: Calm Eyes: Yes: Conjunctiva Clear HENT: Yes: Atraumatic Neck: Yes: Supple Cardiovascular: Yes: S1, S2 Respiratory: Yes: CTA Bilaterally Gastrointestinal: Yes: Soft Genitourinary: Yes: WNL Edema: No Neurological: Yes: Oriented Labs: CBC, BMP 10/28/16 06:00 10/28/16 06:00 INR, PTT INR 1.50 (0.82-1.09) H 10/23/16 12:40 Problem List - Problems (1) Acute on chronic renal failure Code(s): N17.9 - ACUTE KIDNEY FAILURE, UNSPECIFIED N18.9 - CHRONIC KIDNEY DISEASE, UNSPECIFIED (2) Anemia Code(s): D64.9 - ANEMIA, UNSPECIFIED Qualifiers: Other causes of anemia: chronic disease, other (3) ESRD (end stage renal disease) Code(s): N18.6 - END STAGE RENAL DISEASE Assessment/Plan Current Medications Generic Name Dose Route Start Last Admin Trade Name Freq PRN Reason Stop Dose Admin Acetaminophen 650 mg 10/22/16 20:48 Tylenol - PO Q4H PRN FEVER OR PAIN Benztropine Mesylate 1 mg 10/22/16 23:30 10/28/16 09:13 Cogentin - PO 1 mg BID [facility] Administration Calcium Acetate 667 mg 10/24/16 12:00 10/28/16 09:11 Phoslo - PO 667 mg TIDCM [facility] Administration Citalopram Hydrobromide 20 mg 10/23/16 10:00 10/28/16 09:11 Celexa - PO 20 mg DAILY [facility] Administration Levetiracetam 500 mg 10/25/16 16:33 10/28/16 09:11 Keppra - PO 500 mg BID [facility] Administration Olanzapine 5 mg 10/22/16 23:30 10/27/16 21:31 Zyprexa - PO 5 mg HS [facility] Administration Phenytoin Sodium 200 mg 10/22/16 23:30 10/28/16 09:13 Dilantin Chewable Tablet - PO 200 mg BID [facility] Administration Risperidone 2 mg 10/22/16 23:30 10/28/16 09:11 Risperdal - PO 2 mg BID [facility] Administration Senna 1 tab 10/23/16 10:00 10/28/16 09:11 Senna - PO 1 tab BID [facility] Administration Zonisamide 200 mg 10/23/16 10:00 10/28/16 09:14 Zonegran - PO 200 mg DAILY [facility] Administration Laboratory Tests 10/28/16 06:00 Phosphorus 5.0 H Magnesium 2.2 D Impression 1. CKD 5/ESRD 2. DM 3. anemia 4. seizure disorder 5. schizophrenia 6. epilepsy 7. hypokalemia Plan - replace potassium - will use 3 k bath on hd - pt has HD set up at [facility], will have next treatment on - will follow Dr Aguilar
[2016-10-28 14:39] VITALS: BP 130/78; PULSE 101; TEMP 98.8
== END 2016-10-28 18:10 | DRG 699 ==
LOC: JER 09:20 → JERBED 11:20 → J7W 12:16
PROVIDERS: ADMIT Family Medicine; ATTEND Family Medicine
PROC: B2141ZZ Fluoroscopy of Right Heart using Low Osmolar Contrast (ICD-10-PCS; 2016-10-22)
PROC: 5A1D60Z (ICD-10-PCS; 2016-10-22)
PROC: 02H633Z Insertion of Infusion Device into Right Atrium, Percutaneous Approach (ICD-10-PCS; principal; 2016-10-22 18:00)
PROC: 30233N1 Transfusion of Nonautologous Red Blood Cells into Peripheral Vein, Percutaneous Approach (ICD-10-PCS; 2016-10-24)
DX: E11.22 Type 2 diabetes mellitus with diabetic chronic kidney disease (principal); I12.0 Hypertensive chronic kidney disease with stage 5 chronic kidney disease or end stage renal disease; F20.89 Other schizophrenia; G40.209 Localization-related (focal) (partial) symptomatic epilepsy and epileptic syndromes with complex partial seizures, not intractable, without status epilepticus; N18.6 End stage renal disease; N17.9 Acute kidney failure, unspecified; F31.9 Bipolar disorder, unspecified; Z86.73 Personal history of transient ischemic attack (TIA), and cerebral infarction without residual deficits; D63.1 Anemia in chronic kidney disease; E87.6 Hypokalemia
CPT/HCPCS: 36415; 36430; 70450-TC; 71010-TC; 76000-TC; 80048; 80053; 80074; 80185; 81003; 81015; 82550; 82607; 82746; 83036; 83540; 83550; 83735; 84100; 84484; 85025; 85027; 85044; 85610; 85730; 86850; 86900; 86901; 86922; 90670; 93005; 93010; 93306-TC; 94760; 99283-25; J1644; J2794; P9038; P9058

== ENCOUNTER 2020-08-19 16:03 | Inpatient (IN) | payer OTHER ==
[2020-08-19 18:00] LABS: BASO % 0.6 % (0-2.0); EOS % 4.1 % (0-4.5); LYMPH % 21.2 % (8-40); MCH 33.1 pg (25.7-33.7); MCHC 34.2 g/dl (32.0-35.9); MEAN PLT VOLUME 7.9 fl (7.5-11.1); NEUT % 61.1 % (42.8-82.8); PLATELET COUNT 155 K/MM3 (134-434); RBC 1.96 M/mm3 (4.00-5.60); RDW 16.7 % (11.9-15.9); WHITE BLOOD COUNT 3.1 K/mm3 (4.0-10.0)
[2020-08-19 18:01] LABS: HEMOGLOBIN 6.5 GM/dL (11.7-16.9)
[2020-08-19 18:27] LABS: EPI CELLS 10 /uL (0-25.1); HYALINE CASTS 1 /uL (0-3.1); PH,URINE 8.5 (5.0-8.0); URINE APPEARANCE CLEAR; URINE BACTERIA 6 /uL (0-1359); URINE BILIRUBIN NEGATIVE (NEGATIVE); URINE COLOR YELLOW; URINE GLUCOSE (UA) TRACE (NEGATIVE); URINE KETONE NEGATIVE (NEGATIVE); URINE LEUK ESTERASE NEGATIVE (NEGATIVE); URINE NITRITE NEGATIVE (NEGATIVE); URINE PROTEIN 1+ (NEGATIVE); URINE RBC 102 /uL (0-23.9); URINE UROBILINOGEN 0.2 mg/dL (0.2-1.0); URINE WBC 11 /uL (0-25.8)
[2020-08-19 18:34] LABS: CALCIUM 8.9 mg/dL (8.5-10.1)
[2020-08-19 18:36] LABS: BLOOD UREA NITROGEN 26.5 mg/dL (7-18)
[2020-08-19 18:39] LABS: CREATININE 5.7 mg/dL (0.55-1.3)
[2020-08-19 18:40] LABS: BILIRUBIN,TOTAL 0.2 mg/dL (0.2-1); TOT PROT 5.6 g/dl (6.4-8.2)
[2020-08-19] MEDS ORDERED: ONDANSETRON 4 MG/2 ML VIAL IVPUSH PRN (18:58)
[2020-08-19] MEDS ORDERED: ACETAMINOPHEN 325 MG TABLET (FP) PO PRN (18:58)
[2020-08-20 00:23] VITALS: BMI 25.4
[2020-08-20] MEDS: PANTOPRAZOLE SODIUM 40 MG VIAL IVPUSH SCH ×2 (00:47→08:59)
[2020-08-20] MEDS ORDERED: FUROSEMIDE 40 MG/4 ML INJECTABLE VIAL IVPUSH ONE (10:20)
[2020-08-20] MEDS ORDERED: SENNOSIDES 8.6MG TABLET (FP) PO PRN (10:22)
[2020-08-20] MEDS ORDERED: ACETAMINOPHEN 500 MG TABLET (FP) PO PRN (10:22)
[2020-08-20] MEDS ORDERED: METOPROLOL TARTRATE 25 MG TABLET (FP) PO SCH (10:45)
[2020-08-20] MEDS: VITAMIN B COMP W-C 1 EA TABLET (NEPHRO-VITE) PO SCH (10:57)
[2020-08-20] MEDS: CALCIUM ACETATE 667 MG CAPSULE (FP) PO SCH ×2 (11:00→16:47)
[2020-08-20 11:36] LABS: HEMATOCRIT 34.6 % (35.4-49); HEMOGLOBIN 11.6 GM/dL (11.7-16.9); MCH 31.6 pg (25.7-33.7); MCHC 33.5 g/dl (32.0-35.9); MEAN CELL VOLUME 94.5 fl (80-96); MEAN PLT VOLUME 7.6 fl (7.5-11.1); PLATELET COUNT 211 K/MM3 (134-434); RBC 3.67 M/mm3 (4.00-5.60); RDW 18.7 % (11.9-15.9); WHITE BLOOD COUNT 6.1 K/mm3 (4.0-10.0)
[2020-08-20 12:06] LABS: BLOOD UREA NITROGEN 32.5 mg/dL (7-18); CALCIUM 9.5 mg/dL (8.5-10.1)
[2020-08-20 12:10] LABS: CREATININE 6.8 mg/dL (0.55-1.3)
[2020-08-20 12:59] LABS: INR 1.34 (0.83-1.09); PROTHROMBIN TIME (PATIENT) 16.1 SEC (9.7-13.0)
[2020-08-20 13:02] LABS: ACTIVATED PTT 26.6 SECONDS (25.2-36.5)
[2020-08-20] MEDS: AMINO ACIDS/PROTEIN HYDROLYS 30 ML LIQUID.PKT PO SCH (16:47)
[2020-08-20] MEDS ORDERED: SODIUM CHLORIDE 250 ML IV STA ×2 (16:51)
[2020-08-20] MEDS ORDERED: levETIRAcetam 500 MG/5 ML INJECTION VIAL IVPB ONE (20:33)
[2020-08-20] MEDS ORDERED: ACETAMINOPHEN 1000 MG/100 ML VIAL (NON FORMULARY) IVPB ONE (20:33)
[2020-08-20] MEDS ORDERED: PHENYTOIN NA EXTENDED 100 MG CAPSULE (FP) PO SCH (22:00)
[2020-08-20] MEDS ORDERED: levETIRAcetam 500 MG TABLET (FP) PO SCH (22:00)
[2020-08-20] MEDS: MELATONIN 5 MG TABLETS PO SCH (23:28)
[2020-08-20] MEDS: METOPROLOL TARTRATE 25 MG TABLET (FP) PO SCH (23:28)
[2020-08-20] MEDS: BENZTROPINE MESYLATE 1 MG TABLET PO SCH (23:28)
[2020-08-20] MEDS: risperiDONE 0.25 MG TABLET PO SCH (23:28)
[2020-08-21] MEDS: PHENYTOIN SODIUM 100 MG/2 ML VIAL IVPB SCH ×3 (00:06→21:45)
[2020-08-21] MEDS ORDERED: ACETAMINOPHEN 1000 MG/100 ML VIAL (NON FORMULARY) IVPB ONE (03:15)
[2020-08-21] MEDS: CALCIUM ACETATE 667 MG CAPSULE (FP) PO SCH ×3 (08:39→18:38)
[2020-08-21] MEDS: AMINO ACIDS/PROTEIN HYDROLYS 30 ML LIQUID.PKT PO SCH ×3 (08:40→18:38)
[2020-08-21] MEDS ORDERED: PT OWN MED DRAWER 7, Y5N ONE ×4 (09:03→21:29)
[2020-08-21] MEDS: CITALOPRAM HYDROBROMIDE 10 MG TABLET PO SCH (09:28)
[2020-08-21] MEDS: risperiDONE 0.5 MG TABLET PO SCH (09:28)
[2020-08-21] MEDS: BENZTROPINE MESYLATE 1 MG TABLET PO SCH ×3 (09:29→23:27)
[2020-08-21] MEDS: METOPROLOL TARTRATE 25 MG TABLET (FP) PO SCH ×3 (09:30→23:27)
[2020-08-21] MEDS: VITAMIN B COMP W-C 1 EA TABLET (NEPHRO-VITE) PO SCH (09:30)
[2020-08-21] MEDS: PANTOPRAZOLE SODIUM 40 MG VIAL IVPUSH SCH (09:30)
[2020-08-21] MEDS ORDERED: SODIUM CHLORIDE 250 ML IV PRN (11:02)
[2020-08-21 11:10] LABS: INR 1.74 (0.83-1.09); PROTHROMBIN TIME (PATIENT) 21.1 SEC (9.7-13.0)
[2020-08-21 11:41] LABS: LACTIC ACID 2.6 mmol/L (0.4-2.0)
[2020-08-21] MEDS: levETIRAcetam 500 MG TABLET (FP) PO SCH ×2 (13:40→18:50)
[2020-08-21 14:11] LABS: BASO % 0.2 % (0-2.0); EOS % 0.1 % (0-4.5); HEMATOCRIT 22.8 % (35.4-49); HEMOGLOBIN 7.9 GM/dL (11.7-16.9); LYMPH % 4.2 % (8-40); MCH 32.4 pg (25.7-33.7); MCHC 34.7 g/dl (32.0-35.9); MEAN CELL VOLUME 93.4 fl (80-96); MEAN PLT VOLUME 7.9 fl (7.5-11.1); MONO % 5.3 % (3.8-10.2); NEUT % 90.2 % (42.8-82.8); PLATELET COUNT 112 K/MM3 (134-434); RBC 2.45 M/mm3 (4.00-5.60); RDW 18.6 % (11.9-15.9); WHITE BLOOD COUNT 10.5 K/mm3 (4.0-10.0)
[2020-08-21 14:25] LABS: CHLORIDE 100 mmol/L (98-107); SODIUM 137 mmol/L (136-145)
[2020-08-21 14:28] LABS: ALBUMIN 2.5 g/dl (3.4-5.0); ANION GAP 11 MMOL/L (8-16); BLOOD UREA NITROGEN 54.7 mg/dL (7-18); CO2 26 mmol/L (21-32); GLUCOSE,RANDOM 139 mg/dL (74-106)
[2020-08-21 14:30] LABS: SGOT/AST 9 U/L (15-37); SGPT/ALT 9 U/L (13-61)
[2020-08-21 14:32] LABS: BILIRUBIN,TOTAL 0.4 mg/dL (0.2-1); TOT PROT 4.9 g/dl (6.4-8.2)
[2020-08-21 14:35] LABS: ALK PHOS 117 U/L (45-117); CREATININE 8.6 mg/dL (0.55-1.3)
[2020-08-21] MEDS: POLYETHYLENE GLYCOL 3350 119 GM BTL PO SCH ×2 (15:19→23:27)
[2020-08-21] MEDS: ACETAMINOPHEN 1000 MG/100 ML VIAL (NON FORMULARY) IVPB PRN (18:49)
[2020-08-21] MEDS: levETIRAcetam 500 MG/5 ML INJECTION VIAL IVPB SCH (21:11)
[2020-08-21] MEDS: MELATONIN 5 MG TABLETS PO SCH ×2 (21:23→23:27)
[2020-08-21] MEDS: risperiDONE 0.25 MG TABLET PO SCH ×2 (21:34→23:28)
[2020-08-21] MEDS ORDERED: levETIRAcetam 500 MG TABLET (FP) PO SCH (22:00)
[2020-08-22] MEDS: POLYETHYLENE GLYCOL 3350 119 GM BTL PO SCH ×3 (05:37→21:31)
[2020-08-22] MEDS: ACETAMINOPHEN 1000 MG/100 ML VIAL (NON FORMULARY) IVPB PRN (05:44)
[2020-08-22 07:39] LABS: LDH 236 U/L (87-246)
[2020-08-22 07:54] LABS: GAMMA GLUTAMYL TRANSPEPTIDASE 46 U/L (5-85)
[2020-08-22] MEDS: CALCIUM ACETATE 667 MG CAPSULE (FP) PO SCH ×3 (07:55→17:40)
[2020-08-22] MEDS: AMINO ACIDS/PROTEIN HYDROLYS 30 ML LIQUID.PKT PO SCH ×4 (07:55→17:40)
[2020-08-22] MEDS ORDERED: PT OWN MED DRAWER 7, Y5N ONE ×4 (08:01→20:48)
[2020-08-22] MEDS ORDERED: PEG 3350/NA SULF BICARB CL/KCL 4000 ML SOLN.RECON PO ONE (09:10)
[2020-08-22] MEDS ORDERED: BISACODYL 5 MG TABLET.DR (FP) PO ONE ×2 (09:24→20:00)
[2020-08-22] MEDS: METOPROLOL TARTRATE 25 MG TABLET (FP) PO SCH ×2 (09:45→21:19)
[2020-08-22] MEDS: BENZTROPINE MESYLATE 1 MG TABLET PO SCH ×2 (09:45→21:18)
[2020-08-22] MEDS: VITAMIN B COMP W-C 1 EA TABLET (NEPHRO-VITE) PO SCH (09:45)
[2020-08-22] MEDS: PANTOPRAZOLE SODIUM 40 MG VIAL IVPUSH SCH (09:45)
[2020-08-22] MEDS: levETIRAcetam 500 MG TABLET (FP) PO SCH (09:45)
[2020-08-22] MEDS: risperiDONE 0.5 MG TABLET PO SCH (09:45)
[2020-08-22] MEDS: PHENYTOIN SODIUM 100 MG/2 ML VIAL IVPB SCH ×2 (09:46→21:17)
[2020-08-22] MEDS ORDERED: PHYTONADIONE 10 MG/1 ML AMP IVPB ONE (10:00)
[2020-08-22 10:58] LABS: HEMATOCRIT 22.6 % (35.4-49); HEMOGLOBIN 7.7 GM/dL (11.7-16.9); MCH 31.9 pg (25.7-33.7); MEAN CELL VOLUME 93.7 fl (80-96); PLATELET COUNT 95 K/MM3 (134-434); RBC 2.42 M/mm3 (4.00-5.60); RETICULOCYTES 1.59 % (0.5-1.5); WHITE BLOOD COUNT 8.9 K/mm3 (4.0-10.0)
[2020-08-22 11:24] LABS: ALBUMIN 2.4 g/dl (3.4-5.0); CALCIUM 9.3 mg/dL (8.5-10.1)
[2020-08-22] MEDS: CITALOPRAM HYDROBROMIDE 10 MG TABLET PO SCH (11:25)
[2020-08-22 11:29] LABS: BILIRUBIN,TOTAL 0.4 mg/dL (0.2-1); TOT PROT 5.2 g/dl (6.4-8.2)
[2020-08-22 11:39] LABS: BLOOD UREA NITROGEN 28.3 mg/dL (7-18); CREATININE 5.2 mg/dL (0.55-1.3)
[2020-08-22] MEDS ORDERED: SODIUM CHLORIDE 250 ML IV PRN (15:11)
[2020-08-22] MEDS ORDERED: POLYETHYLENE GLYCOL 3350 255 GM BTL PO ONE (16:00)
[2020-08-22 16:08] LABS: HEP B CORE AB, TOT Negative (Negative)
[2020-08-22] MEDS: MELATONIN 5 MG TABLETS PO SCH (21:17)
[2020-08-22] MEDS: risperiDONE 0.25 MG TABLET PO SCH (21:18)
[2020-08-23 07:30] LABS: INR 1.22 (0.83-1.09); PROTHROMBIN TIME (PATIENT) 14.7 SEC (9.7-13.0)
[2020-08-23 07:35] LABS: BASO % 0.2 % (0-2.0); EOS % 2.4 % (0-4.5); HEMATOCRIT 23.3 % (35.4-49); LYMPH % 8.2 % (8-40); MCH 32.5 pg (25.7-33.7); MCHC 34.3 g/dl (32.0-35.9); MEAN PLT VOLUME 7.9 fl (7.5-11.1); MONO % 6.4 % (3.8-10.2); NEUT % 82.8 % (42.8-82.8); PLATELET COUNT 110 K/MM3 (134-434); RBC 2.45 M/mm3 (4.00-5.60); RDW 18.7 % (11.9-15.9); WHITE BLOOD COUNT 7.3 K/mm3 (4.0-10.0)
[2020-08-23] MEDS ORDERED: EPOETIN ALFA-EPBX 10,000 UNIT/ML VIAL IVPUSH ONE (07:45)
[2020-08-23 07:53] LABS: CALCIUM 9.4 mg/dL (8.5-10.1)
[2020-08-23 07:54] LABS: BLOOD UREA NITROGEN 43.5 mg/dL (7-18)
[2020-08-23 07:57] LABS: CREATININE 6.6 mg/dL (0.55-1.3)
[2020-08-23] MEDS ORDERED: BISACODYL 5 MG TABLET.DR (FP) PO ONE ×2 (10:00→16:00)
[2020-08-23] MEDS ORDERED: PT OWN MED DRAWER 7, Y5N ONE ×3 (10:43→21:21)
[2020-08-23] MEDS ORDERED: levETIRAcetam 500 MG TABLET (FP) PO ONE (11:15)
[2020-08-23] MEDS: risperiDONE 0.5 MG TABLET PO SCH (11:55)
[2020-08-23] MEDS: PANTOPRAZOLE SODIUM 40 MG VIAL IVPUSH SCH (11:55)
[2020-08-23] MEDS: CITALOPRAM HYDROBROMIDE 10 MG TABLET PO SCH (11:56)
[2020-08-23] MEDS: METOPROLOL TARTRATE 25 MG TABLET (FP) PO SCH ×3 (11:56→21:46)
[2020-08-23] MEDS: AMINO ACIDS/PROTEIN HYDROLYS 30 ML LIQUID.PKT PO SCH ×4 (11:56→17:18)
[2020-08-23] MEDS: VITAMIN B COMP W-C 1 EA TABLET (NEPHRO-VITE) PO SCH (11:56)
[2020-08-23] MEDS: BENZTROPINE MESYLATE 1 MG TABLET PO SCH ×3 (11:56→21:46)
[2020-08-23] MEDS: CALCIUM ACETATE 667 MG CAPSULE (FP) PO SCH ×4 (11:56→17:18)
[2020-08-23] MEDS: PHENYTOIN SODIUM 100 MG/2 ML VIAL IVPB SCH ×2 (11:57→22:58)
[2020-08-23] MEDS ORDERED: POLYETHYLENE GLYCOL 3350 255 GM BTL PO ONE (16:00)
[2020-08-23 16:12] LABS: GLIADIN ANTIBODY IGA 4 units (0-19); GLIADIN ANTIBODY IGG 5 units (0-19); TRANSGLUTAMINASE IGG < 2 U/mL (0-5)
[2020-08-23] MEDS ORDERED: PEG 3350/NA SULF BICARB CL/KCL 4000 ML SOLN.RECON PO ONE (17:00)
[2020-08-23] MEDS: levETIRAcetam 500 MG TABLET (FP) PO SCH (19:52)
[2020-08-23] MEDS: risperiDONE 0.25 MG TABLET PO SCH ×2 (21:34→21:47)
[2020-08-23] MEDS: MELATONIN 5 MG TABLETS PO SCH ×2 (21:34→21:47)
[2020-08-24] MEDS ORDERED: PT OWN MED DRAWER 7, Y5N ONE ×3 (09:40→12:18)
[2020-08-24] MEDS ORDERED: PANTOPRAZOLE 40 MG TABLET PO SCH (10:00)
[2020-08-24] MEDS: VITAMIN B COMP W-C 1 EA TABLET (NEPHRO-VITE) PO SCH (10:45)
[2020-08-24] MEDS: risperiDONE 0.5 MG TABLET PO SCH (10:45)
[2020-08-24] MEDS: METOPROLOL TARTRATE 25 MG TABLET (FP) PO SCH (10:45)
[2020-08-24] MEDS: AMINO ACIDS/PROTEIN HYDROLYS 30 ML LIQUID.PKT PO SCH ×2 (10:45→12:24)
[2020-08-24] MEDS: CALCIUM ACETATE 667 MG CAPSULE (FP) PO SCH ×2 (10:45→12:23)
[2020-08-24] MEDS: PHENYTOIN SODIUM 100 MG/2 ML VIAL IVPB SCH (12:21)
[2020-08-24] MEDS: levETIRAcetam 500 MG TABLET (FP) PO SCH (12:22)
[2020-08-24] MEDS: BENZTROPINE MESYLATE 1 MG TABLET PO SCH (12:22)
[2020-08-24] MEDS: CITALOPRAM HYDROBROMIDE 10 MG TABLET PO SCH (12:24)
[2020-08-24 16:05] VITALS: BP 113/54; PULSE 88; TEMP 98.4
== END 2020-08-24 16:00 | disposition home or self-care (01) | DRG 377 ==
LOC: JER 16:03 → JERBED 18:34 → J4W 22:48
PROVIDERS: ADMIT Internal Medicine; ATTEND Internal Medicine
PROC: 30233N1 Transfusion of Nonautologous Red Blood Cells into Peripheral Vein, Percutaneous Approach (ICD-10-PCS; principal; 2020-08-19)
PROC: 0DB98ZX Excision of Duodenum, Via Natural or Artificial Opening Endoscopic, Diagnostic (ICD-10-PCS; 2020-08-23)
PROC: 0DB68ZX Excision of Stomach, Via Natural or Artificial Opening Endoscopic, Diagnostic (ICD-10-PCS; 2020-08-23)
PROC: 0DB58ZX Excision of Esophagus, Via Natural or Artificial Opening Endoscopic, Diagnostic (ICD-10-PCS; 2020-08-23)
DX: K92.2 Gastrointestinal hemorrhage, unspecified (principal); N18.6 End stage renal disease; I12.0 Hypertensive chronic kidney disease with stage 5 chronic kidney disease or end stage renal disease; I82.621 Acute embolism and thrombosis of deep veins of right upper extremity; D62 Acute posthemorrhagic anemia; D53.9 Nutritional anemia, unspecified; F20.9 Schizophrenia, unspecified; G40.909 Epilepsy, unspecified, not intractable, without status epilepticus; R00.0 Tachycardia, unspecified; F03.90 Unspecified dementia, unspecified severity, without behavioral disturbance, psychotic disturbance, mood disturbance, and anxiety; I25.119 Atherosclerotic heart disease of native coronary artery with unspecified angina pectoris; R74.8 Abnormal levels of other serum enzymes; K21.9 Gastro-esophageal reflux disease without esophagitis; K44.9 Diaphragmatic hernia without obstruction or gangrene; K31.7 Polyp of stomach and duodenum; K31.89 Other diseases of stomach and duodenum; K22.9 Disease of esophagus, unspecified; S05.11XA Contusion of eyeball and orbital tissues, right eye, initial encounter; Z99.2 Dependence on renal dialysis; W18.39XA Other fall on same level, initial encounter; Y92.89 Other specified places as the place of occurrence of the external cause; F32.9 Major depressive disorder, single episode, unspecified
CPT/HCPCS: 36415; 36430; 70450-TC; 71045-TC-FY; 80048; 80053; 80177; 80185; 81003; 82272; 82550; 82607; 82728; 82746; 82784; 82977; 83516; 83540; 83550; 83605; 83615; 83735; 84155; 84165; 84443; 84484; 85025; 85027; 85045; 85610; 85730; 86334; 86704; 86706; 86707; 86708; 86709; 86803; 86850; 86900; 86901; 86922; 87040; 87086; 87340; 88305-TC; 93005; 93010; 93306-TC; 99285-25; C9803; J0131; P9058; Q5106; U0003; U0005

== ENCOUNTER 2020-09-06 17:11 | Emergency (ER) | payer OTHER ==
[2020-09-06 17:26] VITALS: TEMP 98.7; BMI 22.3
[2020-09-06 19:49] LABS: BASO % 0.5 % (0-2.0); EOS % 0.7 % (0-4.5); HEMATOCRIT 23.1 % (35.4-49); HEMOGLOBIN 7.7 GM/dL (11.7-16.9); LYMPH % 9.7 % (8-40); MCH 32.3 pg (25.7-33.7); MCHC 33.3 g/dl (32.0-35.9); MEAN PLT VOLUME 6.6 fl (7.5-11.1); MONO % 7.8 % (3.8-10.2); NEUT % 81.3 % (42.8-82.8); PLATELET COUNT 385 K/MM3 (134-434); RBC 2.39 M/mm3 (4.00-5.60); RDW 19.4 % (11.9-15.9); WHITE BLOOD COUNT 6.4 K/mm3 (4.0-10.0)
[2020-09-06 20:11] LABS: INR 1.4 (0.83-1.09); PROTHROMBIN TIME (PATIENT) 17.1 SEC (9.7-13.0)
[2020-09-06 20:12] LABS: BLOOD UREA NITROGEN 14.7 mg/dL (7-18); CALCIUM 8.8 mg/dL (8.5-10.1)
[2020-09-06 20:16] LABS: CREATININE 3.7 mg/dL (0.55-1.3)
[2020-09-06 20:17] LABS: BILIRUBIN,TOTAL 0.3 mg/dL (0.2-1)
[2020-09-06 20:22] LABS: ANISOCYTOSIS 3+; MACROCYTOSIS 0
[2020-09-07] MEDS ORDERED: diazePAM CARPU-JECT 10 MG/2 ML DISP.SYRIN IVPUSH ONE (00:09)
[2020-09-07] MEDS ORDERED: diazePAM CARPU-JECT 10 MG/2 ML DISP.SYRIN ONE (00:10)
[2020-09-07 00:28] VITALS: BP 125/86; PULSE 63
== END 2020-09-07 00:23 | disposition home or self-care (01) ==
LOC: JER 17:11
DX: D64.9 Anemia, unspecified (principal)
CPT/HCPCS: 36415; 80053; 82272; 85025; 85610; 85730; 86850; 86900; 86901; 93005; 93010; 99284-25

== ENCOUNTER 2020-10-02 15:38 | Emergency (ER) | payer OTHER ==
[2020-10-02 15:46] VITALS: BMI 25.0
[2020-10-02 18:11] LABS: BASO % 0.6 % (0-2.0); EOS % 0.5 % (0-4.5); HEMATOCRIT 21.8 % (35.4-49); HEMOGLOBIN 7.2 GM/dL (11.7-16.9); LYMPH % 9.2 % (8-40); MCH 32.4 pg (25.7-33.7); MCHC 33.2 g/dl (32.0-35.9); MEAN CELL VOLUME 97.5 fl (80-96); MEAN PLT VOLUME 6.4 fl (7.5-11.1); MONO % 7.4 % (3.8-10.2); NEUT % 82.3 % (42.8-82.8); PLATELET COUNT 324 10^3/uL (134-434); RBC 2.24 M/mm3 (4.00-5.60); RDW 18.2 % (11.9-15.9); WHITE BLOOD COUNT 6.7 K/mm3 (4.0-10.0)
[2020-10-02 18:27] LABS: CALCIUM 8.9 mg/dL (8.5-10.1)
[2020-10-02 18:28] LABS: ALBUMIN 2.5 g/dl (3.4-5.0); BLOOD UREA NITROGEN 23.2 mg/dL (7-18)
[2020-10-02 18:31] LABS: CREATININE 4.5 mg/dL (0.55-1.3)
[2020-10-02 18:32] LABS: BILIRUBIN,TOTAL 0.6 mg/dL (0.2-1)
[2020-10-02 18:33] LABS: TOT PROT 6.3 g/dl (6.4-8.2)
[2020-10-02 21:19] VITALS: BP 111/65; PULSE 84; TEMP 98.1
== END 2020-10-02 21:27 ==
LOC: JER 15:38
DX: R41.82 Altered mental status, unspecified (principal)
CPT/HCPCS: 36415; 71045-TC-FY; 80053; 83605; 83735; 85025; 87040; 93005; 93010; 99285-25; C9803; U0003; U0005

== ENCOUNTER 2020-11-14 04:08 | Emergency (ER) | payer OTHER ==
[2020-11-14] MEDS ORDERED: DIPHTH,PERTUSS(ACELL),TET 0.5 ML DISP.SYRIN IM ONE ×2 (04:35→06:25)
[2020-11-14 04:36] VITALS: BMI 22.9
[2020-11-14 06:13] LABS: BASO % 0.8 % (0-2.0); EOS % 4.1 % (0-4.5); HEMATOCRIT 38.1 % (35.4-49); HEMOGLOBIN 12.7 GM/dL (11.7-16.9); LYMPH % 19.9 % (8-40); MCH 33.8 pg (25.7-33.7); MCHC 33.4 g/dl (32.0-35.9); MEAN PLT VOLUME 6.9 fl (7.5-11.1); MONO % 6.6 % (3.8-10.2); NEUT % 68.6 % (42.8-82.8); PLATELET COUNT 178 10^3/uL (134-434); RBC 3.77 M/mm3 (4.00-5.60); RDW 18.7 % (11.9-15.9); WHITE BLOOD COUNT 5.3 K/mm3 (4.0-10.0)
[2020-11-14 06:40] LABS: CHLORIDE 98 mmol/L (98-107); SODIUM 134 mmol/L (136-145)
[2020-11-14 06:42] LABS: CALCIUM 9.1 mg/dL (8.5-10.1)
[2020-11-14 06:43] LABS: ALBUMIN 3.2 g/dl (3.4-5.0); ANION GAP 9 MMOL/L (8-16); BLOOD UREA NITROGEN 28.3 mg/dL (7-18); CO2 27 mmol/L (21-32); GLUCOSE,RANDOM 77 mg/dL (74-106); MAGNESIUM 2.1 mg/dL (1.8-2.4)
[2020-11-14 06:46] LABS: CREATININE 6.1 mg/dL (0.55-1.3); SGOT/AST 21 U/L (15-37); SGPT/ALT 12 U/L (13-61)
[2020-11-14 06:47] LABS: BILIRUBIN,TOTAL 0.4 mg/dL (0.2-1)
[2020-11-14 06:49] LABS: ALK PHOS 181 U/L (45-117)
[2020-11-14] MEDS ORDERED: HALOPERIDOL LACTATE 5 MG/ML IM ONE (07:01)
[2020-11-14] MEDS ORDERED: HALOPERIDOL LACTATE 5 MG/ML ONE (07:03)
[2020-11-14 10:49] VITALS: TEMP 97.2
[2020-11-14 14:58] VITALS: BP 130/72; PULSE 71
== END 2020-11-14 14:59 | disposition home or self-care (01) ==
LOC: JER 04:08
PROC: 3E0234Z Introduction of Serum, Toxoid and Vaccine into Muscle, Percutaneous Approach (ICD-10-PCS; principal; 2020-11-14)
PROC: 3E033GC Introduction of Other Therapeutic Substance into Peripheral Vein, Percutaneous Approach (ICD-10-PCS; 2020-11-14)
DX: S01.81XA Laceration without foreign body of other part of head, initial encounter (principal); W01.0XXA Fall on same level from slipping, tripping and stumbling without subsequent striking against object, initial encounter
CPT/HCPCS: 36415; 70450-TC; 71045-TC-FY; 72125-TC; 80053; 83735; 84484; 85025; 90471; 90715; 93005; 93010; 99285-25; C9803; U0003; U0005

== ENCOUNTER 2021-01-26 09:35 | Inpatient (IN) | payer OTHER ==
[2021-01-26 09:50] VITALS: BMI 28.3
[2021-01-26 10:49] LABS: BASO % 0.5 % (0-2.0); EOS % 1.1 % (0-4.5); HEMATOCRIT 17.6 % (35.4-49); LYMPH % 6.9 % (8-40); MCH 34.6 pg (25.7-33.7); MCHC 34.9 g/dl (32.0-35.9); MEAN CELL VOLUME 99.2 fl (80-96); MEAN PLT VOLUME 7.3 fl (7.5-11.1); MONO % 9.8 % (3.8-10.2); NEUT % 81.7 % (42.8-82.8); PLATELET COUNT 172 10^3/uL (134-434); RBC 1.77 M/mm3 (4.00-5.60); RDW 15.5 % (11.9-15.9); WHITE BLOOD COUNT 7.9 K/mm3 (4.0-10.0)
[2021-01-26 11:05] LABS: HEMOGLOBIN 6.1 GM/dL (11.7-16.9); INR 1.48 (0.83-1.09); PROTHROMBIN TIME (PATIENT) 16.6 SEC (9.7-13.0)
[2021-01-26 11:26] LABS: CHLORIDE 99 mmol/L (98-107); SODIUM 136 mmol/L (136-145)
[2021-01-26 11:28] LABS: ALBUMIN 2.9 g/dl (3.4-5.0); ANION GAP 8 MMOL/L (8-16); BLOOD UREA NITROGEN 57.2 mg/dL (7-18); CALCIUM 8.9 mg/dL (8.5-10.1); CO2 30 mmol/L (21-32); GLUCOSE,RANDOM 119 mg/dL (74-106)
[2021-01-26 11:31] LABS: CREATININE 6.7 mg/dL (0.55-1.3); SGOT/AST 13 U/L (15-37); SGPT/ALT 15 U/L (13-61)
[2021-01-26 11:33] LABS: BILIRUBIN,TOTAL 0.4 mg/dL (0.2-1); TOT PROT 6.4 g/dl (6.4-8.2)
[2021-01-26 11:34] LABS: ALK PHOS 204 U/L (45-117)
[2021-01-26] MEDS ORDERED: SODIUM CHLORIDE 250 ML IV PRN (15:54)
[2021-01-26] MEDS ORDERED: EPOETIN ALFA-EPBX 10,000 UNIT/ML VIAL SQ ONE (16:30)
[2021-01-26 16:59] LABS: RETICULOCYTES 4.42 % (0.5-1.5)
[2021-01-26 17:36] LABS: IRON SERUM 25 ug/dL (50-175); TOTAL IRON BINDING CAPACITY 138 ug/dL (250-450)
[2021-01-26] MEDS ORDERED: SENNOSIDES 8.6MG TABLET (FP) PO PRN (17:46)
[2021-01-26] MEDS: CALCIUM ACETATE 667 MG CAPSULE (FP) PO SCH (19:53)
[2021-01-26] MEDS: MELATONIN 5 MG TABLETS PO SCH (21:37)
[2021-01-26] MEDS: PHENYTOIN NA EXTENDED 100 MG CAPSULE (FP) PO SCH (21:37)
[2021-01-26] MEDS: risperiDONE 1 MG TABLET PO SCH (21:38)
[2021-01-26] MEDS: HEPARIN NA (PORCINE) 5,000 UNITS/ML 1ML VIAL SQ SCH (21:51)
[2021-01-26] MEDS ORDERED: levETIRAcetam 500 MG TABLET (FP) PO SCH (22:00)
[2021-01-27] MEDS ORDERED: diphenhydrAMINE HCL 25 MG CAPSULE (FP) PO PRN (04:54)
[2021-01-27] MEDS ORDERED: diphenhydrAMINE HCL 12.5 MG/5 ML UNIT-DOSE CUPS PO PRN (05:55)
[2021-01-27] MEDS: HEPARIN NA (PORCINE) 5,000 UNITS/ML 1ML VIAL SQ SCH ×5 (05:56→21:48)
[2021-01-27] MEDS: CALCIUM ACETATE 667 MG CAPSULE (FP) PO SCH ×3 (08:35→17:32)
[2021-01-27] MEDS: PHENYTOIN NA EXTENDED 100 MG CAPSULE (FP) PO SCH ×2 (09:21→21:37)
[2021-01-27] MEDS: levETIRAcetam 500 MG TABLET (FP) PO SCH (09:21)
[2021-01-27] MEDS: CITALOPRAM HYDROBROMIDE 20 MG TABLET PO SCH (09:21)
[2021-01-27] MEDS: BENZTROPINE MESYLATE 1 MG TABLET PO SCH (11:20)
[2021-01-27] MEDS: risperiDONE 1 MG TABLET PO SCH (11:20)
[2021-01-27] MEDS: MELATONIN 5 MG TABLETS PO SCH ×2 (21:37→21:48)
[2021-01-28] MEDS: HEPARIN NA (PORCINE) 5,000 UNITS/ML 1ML VIAL SQ SCH ×3 (06:03→21:39)
[2021-01-28] MEDS: CALCIUM ACETATE 667 MG CAPSULE (FP) PO SCH ×3 (08:58→18:10)
[2021-01-28] MEDS: CITALOPRAM HYDROBROMIDE 20 MG TABLET PO SCH (08:59)
[2021-01-28] MEDS: PHENYTOIN NA EXTENDED 100 MG CAPSULE (FP) PO SCH ×2 (08:59→21:39)
[2021-01-28] MEDS: levETIRAcetam 500 MG TABLET (FP) PO SCH (08:59)
[2021-01-28] MEDS: BENZTROPINE MESYLATE 1 MG TABLET PO SCH (09:00)
[2021-01-28] MEDS: risperiDONE 1 MG TABLET PO SCH (09:00)
[2021-01-28 12:36] LABS: BASO % 0.2 % (0-2.0); EOS % 2.6 % (0-4.5); HEMOGLOBIN 8.9 GM/dL (11.7-16.9); LYMPH % 11.2 % (8-40); MCH 33.2 pg (25.7-33.7); MCHC 34.3 g/dl (32.0-35.9); MEAN CELL VOLUME 96.9 fl (80-96); MEAN PLT VOLUME 7.3 fl (7.5-11.1); MONO % 8.3 % (3.8-10.2); NEUT % 77.7 % (42.8-82.8); PLATELET COUNT 165 10^3/uL (134-434); RBC 2.68 M/mm3 (4.00-5.60); RDW 16.8 % (11.9-15.9); WHITE BLOOD COUNT 5.7 K/mm3 (4.0-10.0)
[2021-01-28 12:55] LABS: CALCIUM 9.5 mg/dL (8.5-10.1)
[2021-01-28 12:56] LABS: BLOOD UREA NITROGEN 48.7 mg/dL (7-18)
[2021-01-28 12:59] LABS: CREATININE 6.7 mg/dL (0.55-1.3)
[2021-01-28] MEDS ORDERED: SODIUM CHLORIDE 250 ML IV PRN (18:05)
[2021-01-28] MEDS ORDERED: EPOETIN ALFA-EPBX 10,000 UNIT/ML VIAL SQ ONE (18:05)
[2021-01-28] MEDS: MELATONIN 5 MG TABLETS PO SCH (21:39)
[2021-01-29] MEDS: HEPARIN NA (PORCINE) 5,000 UNITS/ML 1ML VIAL SQ SCH ×3 (06:21→21:11)
[2021-01-29] MEDS: CALCIUM ACETATE 667 MG CAPSULE (FP) PO SCH ×3 (08:53→17:20)
[2021-01-29 09:25] LABS: HEMATOCRIT 25.4 % (35.4-49); HEMOGLOBIN 8.6 GM/dL (11.7-16.9); MEAN CELL VOLUME 97.1 fl (80-96); MEAN PLT VOLUME 7.3 fl (7.5-11.1); PLATELET COUNT 179 10^3/uL (134-434); RBC 2.62 M/mm3 (4.00-5.60); RDW 17.1 % (11.9-15.9); WHITE BLOOD COUNT 5.1 K/mm3 (4.0-10.0)
[2021-01-29 09:43] LABS: CHLORIDE 103 mmol/L (98-107); SODIUM 139 mmol/L (136-145)
[2021-01-29 09:44] LABS: CALCIUM 9.5 mg/dL (8.5-10.1); GLUCOSE,RANDOM 84 mg/dL (74-106)
[2021-01-29 09:46] LABS: ANION GAP 4 MMOL/L (8-16); CO2 32 mmol/L (21-32)
[2021-01-29] MEDS: CITALOPRAM HYDROBROMIDE 20 MG TABLET PO SCH (15:32)
[2021-01-29] MEDS: levETIRAcetam 500 MG TABLET (FP) PO SCH (15:32)
[2021-01-29] MEDS: PHENYTOIN NA EXTENDED 100 MG CAPSULE (FP) PO SCH ×2 (15:32→21:10)
[2021-01-29] MEDS: BENZTROPINE MESYLATE 1 MG TABLET PO SCH (15:32)
[2021-01-29] MEDS: risperiDONE 1 MG TABLET PO SCH (15:33)
[2021-01-29] MEDS ORDERED: PT OWN MED DRAWER 7, Y5N ONE (16:30)
[2021-01-29] MEDS ORDERED: HALOPERIDOL DECANOATE 100 MG/ML IM ONE (16:34)
[2021-01-29] MEDS ORDERED: HALOPERIDOL LACTATE 5 MG/ML IM ONE (16:37)
[2021-01-29] MEDS: MELATONIN 5 MG TABLETS PO SCH (21:11)
[2021-01-30] MEDS: HEPARIN NA (PORCINE) 5,000 UNITS/ML 1ML VIAL SQ SCH ×3 (05:38→21:24)
[2021-01-30 08:59] LABS: HEMATOCRIT 25.1 % (35.4-49); HEMOGLOBIN 8.8 GM/dL (11.7-16.9); MCH 33.8 pg (25.7-33.7); MEAN CELL VOLUME 96.7 fl (80-96); MEAN PLT VOLUME 7.1 fl (7.5-11.1); PLATELET COUNT 195 10^3/uL (134-434); RDW 16.9 % (11.9-15.9); WHITE BLOOD COUNT 4.7 K/mm3 (4.0-10.0)
[2021-01-30 09:23] LABS: CALCIUM 9.4 mg/dL (8.5-10.1)
[2021-01-30 09:26] LABS: CREATININE 5.6 mg/dL (0.55-1.3)
[2021-01-30 09:27] LABS: BLOOD UREA NITROGEN 30.9 mg/dL (7-18)
[2021-01-30] MEDS ORDERED: PT OWN MED DRAWER 7, Y5N ONE (11:11)
[2021-01-30] MEDS ORDERED: HALOPERIDOL LACTATE 5 MG/ML IM ONE (11:14)
[2021-01-30] MEDS ORDERED: risperiDONE 1 MG TABLET PO ONE (11:15)
[2021-01-30] MEDS: CALCIUM ACETATE 667 MG CAPSULE (FP) PO SCH ×3 (11:17→16:40)
[2021-01-30] MEDS: CITALOPRAM HYDROBROMIDE 20 MG TABLET PO SCH (11:18)
[2021-01-30] MEDS: BENZTROPINE MESYLATE 1 MG TABLET PO SCH (11:18)
[2021-01-30] MEDS: PHENYTOIN NA EXTENDED 100 MG CAPSULE (FP) PO SCH ×2 (11:18→21:23)
[2021-01-30] MEDS: levETIRAcetam 500 MG TABLET (FP) PO SCH (11:18)
[2021-01-30] MEDS: MELATONIN 5 MG TABLETS PO SCH (21:23)
[2021-01-30] MEDS: risperiDONE 1 MG TABLET PO SCH (21:24)
[2021-01-31] MEDS: HEPARIN NA (PORCINE) 5,000 UNITS/ML 1ML VIAL SQ SCH ×3 (06:29→21:46)
[2021-01-31] MEDS ORDERED: PT OWN MED DRAWER 7, Y5N ONE ×3 (08:25→21:40)
[2021-01-31] MEDS: risperiDONE 1 MG TABLET PO SCH ×2 (09:07→21:46)
[2021-01-31] MEDS: PHENYTOIN NA EXTENDED 100 MG CAPSULE (FP) PO SCH ×2 (09:07→21:45)
[2021-01-31] MEDS: levETIRAcetam 500 MG TABLET (FP) PO SCH (09:07)
[2021-01-31] MEDS: CITALOPRAM HYDROBROMIDE 20 MG TABLET PO SCH (09:07)
[2021-01-31] MEDS: BENZTROPINE MESYLATE 1 MG TABLET PO SCH (09:07)
[2021-01-31] MEDS: CALCIUM ACETATE 667 MG CAPSULE (FP) PO SCH ×3 (09:07→17:37)
[2021-01-31 09:12] LABS: HEMATOCRIT 24.7 % (35.4-49); HEMOGLOBIN 8.5 GM/dL (11.7-16.9); MCH 33.7 pg (25.7-33.7); MCHC 34.4 g/dl (32.0-35.9); MEAN PLT VOLUME 7.2 fl (7.5-11.1); PLATELET COUNT 204 10^3/uL (134-434); RBC 2.52 M/mm3 (4.00-5.60); WHITE BLOOD COUNT 4.5 K/mm3 (4.0-10.0)
[2021-01-31 09:39] LABS: BLOOD UREA NITROGEN 46.1 mg/dL (7-18); CALCIUM 9.6 mg/dL (8.5-10.1)
[2021-01-31 09:43] LABS: CREATININE 7.4 mg/dL (0.55-1.3)
[2021-01-31] MEDS ORDERED: SODIUM CHLORIDE 250 ML IV PRN (12:36)
[2021-01-31] MEDS ORDERED: EPOETIN ALFA-EPBX 10,000 UNIT/ML VIAL SQ ONE (13:00)
[2021-01-31] MEDS ORDERED: HALOPERIDOL LACTATE 5 MG/ML IM PRN (15:31)
[2021-01-31] MEDS: MELATONIN 5 MG TABLETS PO SCH (21:45)
[2021-02-01] MEDS: HEPARIN NA (PORCINE) 5,000 UNITS/ML 1ML VIAL SQ SCH (05:27)
[2021-02-01] MEDS ORDERED: PT OWN MED DRAWER 7, Y5N ONE (09:02)
[2021-02-01] MEDS: levETIRAcetam 500 MG TABLET (FP) PO SCH (09:03)
[2021-02-01] MEDS: CITALOPRAM HYDROBROMIDE 20 MG TABLET PO SCH (09:03)
[2021-02-01] MEDS: risperiDONE 1 MG TABLET PO SCH (09:03)
[2021-02-01] MEDS: PHENYTOIN NA EXTENDED 100 MG CAPSULE (FP) PO SCH (09:03)
[2021-02-01] MEDS: CALCIUM ACETATE 667 MG CAPSULE (FP) PO SCH (09:03)
[2021-02-01] MEDS: BENZTROPINE MESYLATE 1 MG TABLET PO SCH (09:03)
[2021-02-01 13:27] VITALS: BP 110/73; PULSE 85; TEMP 98.6
== END 2021-02-01 11:18 | DRG 682 ==
LOC: JER 09:35 → JERBED 11:06 → J5S 18:47
PROVIDERS: ADMIT Internal Medicine; ATTEND Internal Medicine
PROC: 30233N1 Transfusion of Nonautologous Red Blood Cells into Peripheral Vein, Percutaneous Approach (ICD-10-PCS; principal; 2021-01-26)
PROC: 5A1D70Z Performance of Urinary Filtration, Intermittent, Less than 6 Hours Per Day (ICD-10-PCS; 2021-01-26)
PROC: 5A1D70Z Performance of Urinary Filtration, Intermittent, Less than 6 Hours Per Day (ICD-10-PCS; 2021-01-31)
DX: I12.0 Hypertensive chronic kidney disease with stage 5 chronic kidney disease or end stage renal disease (principal); N18.6 End stage renal disease; N25.81 Secondary hyperparathyroidism of renal origin; Z99.2 Dependence on renal dialysis; F20.9 Schizophrenia, unspecified; G40.909 Epilepsy, unspecified, not intractable, without status epilepticus; D63.1 Anemia in chronic kidney disease; I34.0 Nonrheumatic mitral (valve) insufficiency; R45.1 Restlessness and agitation; K59.00 Constipation, unspecified; F32.A Depression, unspecified; K21.9 Gastro-esophageal reflux disease without esophagitis; Z86.718 Personal history of other venous thrombosis and embolism; Z86.73 Personal history of transient ischemic attack (TIA), and cerebral infarction without residual deficits
CPT/HCPCS: 36415; 36430; 80048; 80053; 82272; 82550; 82607; 82728; 82747; 83540; 83550; 84484; 85014; 85025; 85027; 85045; 85610; 85730; 86803; 86850; 86900; 86901; 86922; 87340; 93005; 93010; 97116-GP; 97162-GP; 99285-25; C9803; J1644; J2794; P9058; Q5106; U0003; U0005

== ENCOUNTER 2021-10-13 12:37 | Inpatient (IN) | payer OTHER ==
[2021-10-13 14:59] LABS: BASO % 0.2 % (0-2.0); HEMATOCRIT 25.2 % (35.4-49); HEMOGLOBIN 8.6 GM/dL (11.7-16.9); LYMPH % 13.8 % (8-40); MCH 36.5 pg (25.7-33.7); MEAN CELL VOLUME 107.4 fl (80-96); MEAN PLT VOLUME 7.4 fl (7.5-11.1); MONO % 10.5 % (3.8-10.2); NEUT % 71.5 % (42.8-82.8); PLATELET COUNT 177 10^3/uL (134-434); RBC 2.34 M/mm3 (4.00-5.60); RDW 15.6 % (11.9-15.9); WHITE BLOOD COUNT 4.4 K/mm3 (4.0-10.0)
[2021-10-13 15:16] LABS: CHLORIDE 100 mmol/L (98-107); SODIUM 135 mmol/L (136-145)
[2021-10-13 15:17] LABS: ALBUMIN 3.5 g/dl (3.4-5.0)
[2021-10-13 15:19] LABS: CO2 19 mmol/L (21-32); GLUCOSE,RANDOM 106 mg/dL (74-106); MAGNESIUM 2.9 mg/dL (1.8-2.4)
[2021-10-13 15:21] LABS: INR 1.79 (0.83-1.09); PHOSPHOROUS 7.2 mg/dL (2.5-4.9); PROTHROMBIN TIME (PATIENT) 20.7 SEC (9.7-13.0); SGPT/ALT 45 U/L (13-61)
[2021-10-13 15:22] LABS: BILIRUBIN,TOTAL 0.3 mg/dL (0.2-1); SGOT/AST 29 U/L (15-37); TOT PROT 7.2 g/dl (6.4-8.2)
[2021-10-13 15:23] LABS: ACTIVATED PTT 51.1 SECONDS (25.2-36.5)
[2021-10-13 15:24] LABS: ALK PHOS 237 U/L (45-117)
[2021-10-13 15:43] LABS: EPI CELLS >36 /uL (0-25.1); HYALINE CASTS 1 /uL (0-3.1); URINE APPEARANCE CLEAR; URINE BACTERIA 12 /uL (0-1359); URINE BILIRUBIN NEGATIVE (NEGATIVE); URINE COLOR YELLOW; URINE GLUCOSE (UA) NEGATIVE (NEGATIVE); URINE KETONE NEGATIVE (NEGATIVE); URINE LEUK ESTERASE NEGATIVE (NEGATIVE); URINE NITRITE NEGATIVE (NEGATIVE); URINE PROTEIN 2+ (NEGATIVE); URINE RBC 243 /uL (0-23.9); URINE UROBILINOGEN 0.2 mg/dL (0.2-1.0); URINE WBC 18 /uL (0-25.8)
[2021-10-13 16:15] LABS: CHLORIDE 102 mmol/L (98-107); SODIUM 137 mmol/L (136-145)
[2021-10-13 16:19] LABS: ALBUMIN 3.6 g/dl (3.4-5.0); CO2 20 mmol/L (21-32); GLUCOSE,RANDOM 104 mg/dL (74-106)
[2021-10-13 16:22] LABS: SGOT/AST 33 U/L (15-37); SGPT/ALT 47 U/L (13-61)
[2021-10-13 16:23] LABS: BILIRUBIN,TOTAL 0.4 mg/dL (0.2-1)
[2021-10-13 16:24] LABS: TOT PROT 7.4 g/dl (6.4-8.2)
[2021-10-13 16:25] LABS: ALK PHOS 244 U/L (45-117)
[2021-10-13 16:32] LABS: ANION GAP 15 MMOL/L (8-16); BLOOD UREA NITROGEN 139.7 mg/dL (7-18); CREATININE 11.5 mg/dL (0.55-1.3)
[2021-10-13 16:32] LABS: ANION GAP 16 MMOL/L (8-16); BLOOD UREA NITROGEN 140.5 mg/dL (7-18); CREATININE 11.4 mg/dL (0.55-1.3)
[2021-10-13 17:33] LABS: ANISOCYTOSIS 2+; MACROCYTOSIS 2+; PLATELET ESTIMATE NORMAL
[2021-10-13] MEDS ORDERED: MIDAZOLAM HCL 2 MG/2 ML SINGLE DOSE VIAL IVPUSH ONE (18:54)
[2021-10-13] MEDS ORDERED: MIDAZOLAM HCL 2 MG/2 ML SINGLE DOSE VIAL ONE (19:01)
[2021-10-13 19:59] LABS: CHLORIDE 105 mmol/L (98-107); SODIUM 139 mmol/L (136-145)
[2021-10-13 20:00] LABS: ALBUMIN 3.4 g/dl (3.4-5.0); CALCIUM 7.7 mg/dL (8.5-10.1); GLUCOSE,RANDOM 95 mg/dL (74-106)
[2021-10-13 20:01] LABS: ANION GAP 16 MMOL/L (8-16); CO2 18 mmol/L (21-32)
[2021-10-13 20:04] LABS: SGOT/AST 22 U/L (15-37); SGPT/ALT 40 U/L (13-61)
[2021-10-13 20:06] LABS: BILIRUBIN,TOTAL 0.4 mg/dL (0.2-1); TOT PROT 6.9 g/dl (6.4-8.2)
[2021-10-13 20:07] LABS: ALK PHOS 219 U/L (45-117)
[2021-10-13 20:18] LABS: CREATININE 11.2 mg/dL (0.55-1.3)
[2021-10-13] MEDS ORDERED: SODIUM CHLORIDE 250 ML IV PRN (21:51)
[2021-10-13] MEDS ORDERED: MAGNESIUM HYDROX 2400MG/30ML ORAL SUSPENSION 30 ML CUP PO PRN (23:53)
[2021-10-14] MEDS ORDERED: LACOSAMIDE 50 MG TABLET PO ONE (09:48)
[2021-10-14] MEDS ORDERED: PANTOPRAZOLE 40 MG TABLET PO ONE (09:49)
[2021-10-14] MEDS ORDERED: CITALOPRAM HYDROBROMIDE 10 MG TABLET ONE (09:49)
[2021-10-14] MEDS ORDERED: CITALOPRAM HYDROBROMIDE 20 MG TABLET PO SCH (10:00)
[2021-10-14] MEDS: LACOSAMIDE 50 MG TABLET PO SCH ×2 (10:17→22:53)
[2021-10-14] MEDS: PANTOPRAZOLE 40 MG TABLET PO SCH (10:17)
[2021-10-14] MEDS: CITALOPRAM HYDROBROMIDE 10 MG TABLET PO SCH (10:17)
[2021-10-14] MEDS: BENZTROPINE MESYLATE 1 MG TABLET PO SCH (10:17)
[2021-10-14] MEDS ORDERED: SODIUM CHLORIDE 250 ML IV PRN (11:08)
[2021-10-14] MEDS: PHENYTOIN 100 MG/4 ML U-D CUP PO SCH ×2 (11:30→17:42)
[2021-10-14 13:49] LABS: BASO % 0.4 % (0-2.0); EOS % 1.4 % (0-4.5); HEMATOCRIT 25.5 % (35.4-49); LYMPH % 8.6 % (8-40); MCH 37.3 pg (25.7-33.7); MCHC 35.2 g/dl (32.0-35.9); MEAN PLT VOLUME 7.6 fl (7.5-11.1); MONO % 7.9 % (3.8-10.2); NEUT % 81.7 % (42.8-82.8); PLATELET COUNT 188 10^3/uL (134-434); RBC 2.41 M/mm3 (4.00-5.60); RDW 15.4 % (11.9-15.9); WHITE BLOOD COUNT 4.4 K/mm3 (4.0-10.0)
[2021-10-14 13:52] LABS: INR 1.59 (0.83-1.09); PROTHROMBIN TIME (PATIENT) 18.4 SEC (9.7-13.0)
[2021-10-14 13:55] LABS: ACTIVATED PTT 33.9 SECONDS (25.2-36.5)
[2021-10-14 14:16] LABS: CHLORIDE 101 mmol/L (98-107); SODIUM 139 mmol/L (136-145)
[2021-10-14 14:23] LABS: ANION GAP 13 MMOL/L (8-16); CALCIUM 8.5 mg/dL (8.5-10.1); CO2 25 mmol/L (21-32); GLUCOSE,RANDOM 88 mg/dL (74-106); MAGNESIUM 2.5 mg/dL (1.8-2.4)
[2021-10-14 14:25] LABS: ALBUMIN 3.6 g/dl (3.4-5.0); PHOSPHOROUS 5.7 mg/dL (2.5-4.9); SGPT/ALT 38 U/L (13-61)
[2021-10-14 14:27] LABS: BILIRUBIN,TOTAL 0.4 mg/dL (0.2-1); TOT PROT 7.3 g/dl (6.4-8.2)
[2021-10-14 14:28] LABS: ALK PHOS 232 U/L (45-117); SGOT/AST 23 U/L (15-37)
[2021-10-14 14:29] LABS: BLOOD UREA NITROGEN 88.2 mg/dL (7-18); CREATININE 7.9 mg/dL (0.55-1.3)
[2021-10-14] MEDS ORDERED: risperiDONE 0.5 MG TABLET PO SCH (22:00)
[2021-10-14] MEDS ORDERED: levETIRAcetam 500 MG/5 ML ORAL SOLUTION (UNIT-DOSE CUPS) PO ONE (22:00)
[2021-10-14] MEDS ORDERED: SENNOSIDES 8.6MG TABLET (FP) PO SCH (22:00)
[2021-10-14] MEDS ORDERED: MELATONIN 5 MG TABLETS PO SCH (22:00)
[2021-10-15 09:00] LABS: BASO % 0.3 % (0-2.0); HEMATOCRIT 26.4 % (35.4-49); HEMOGLOBIN 9.2 GM/dL (11.7-16.9); LYMPH % 12.6 % (8-40); MCH 36.6 pg (25.7-33.7); MCHC 34.8 g/dl (32.0-35.9); MEAN CELL VOLUME 105.1 fl (80-96); MEAN PLT VOLUME 7.7 fl (7.5-11.1); MONO % 14.2 % (3.8-10.2); NEUT % 69.9 % (42.8-82.8); PLATELET COUNT 188 10^3/uL (134-434); RBC 2.51 M/mm3 (4.00-5.60); RDW 15.3 % (11.9-15.9); WHITE BLOOD COUNT 4.5 K/mm3 (4.0-10.0)
[2021-10-15 09:25] LABS: CALCIUM 8.7 mg/dL (8.5-10.1)
[2021-10-15] MEDS: CITALOPRAM HYDROBROMIDE 10 MG TABLET PO SCH ×2 (09:25→18:18)
[2021-10-15] MEDS: PANTOPRAZOLE 40 MG TABLET PO SCH ×2 (09:26→18:18)
[2021-10-15] MEDS: PHENYTOIN 100 MG/4 ML U-D CUP PO SCH ×2 (09:26→23:10)
[2021-10-15] MEDS: LACOSAMIDE 50 MG TABLET PO SCH ×2 (09:26→21:09)
[2021-10-15 09:29] LABS: BLOOD UREA NITROGEN 57.2 mg/dL (7-18); CREATININE 5.8 mg/dL (0.55-1.3)
[2021-10-15] MEDS: levETIRAcetam 500 MG/5 ML ORAL SOLUTION (UNIT-DOSE CUPS) PO SCH (09:49)
[2021-10-15] MEDS ORDERED: levETIRAcetam 500 MG TABLET (FP) PO SCH (10:00)
[2021-10-15] MEDS: BENZTROPINE MESYLATE 1 MG TABLET PO SCH ×2 (10:55→18:18)
[2021-10-15] MEDS ORDERED: HEPARIN NA (PORCINE) 5,000 UNITS/ML 1ML VIAL ONE (13:42)
[2021-10-15] MEDS ORDERED: LIDOCAINE HCL 1%, 10 MG/ML (20ML VIAL) ONE (13:42)
[2021-10-15] MEDS ORDERED: DEXMEDETOMIDINE HCL 200 MCG/2 ML IVPB ONE (13:53)
[2021-10-15] MEDS ORDERED: PROPOFOL 20 ML ONE (14:27)
[2021-10-15] MEDS ORDERED: SUCCINYLCHOLINE CHLORIDE 200 MG/10 ML SYRINGE ONE (14:27)
[2021-10-15] MEDS ORDERED: MIDAZOLAM HCL 2 MG/2 ML SINGLE DOSE VIAL ONE (14:28)
[2021-10-15] MEDS ORDERED: KETAMINE HCL 200 MG/20 ML VIAL ONE (14:28)
[2021-10-15] MEDS ORDERED: CLINDAMYCIN 900 MG PREMIX BAG IVPB ONE (14:45)
[2021-10-15] MEDS ORDERED: LIDOCAINE HCL 1%, 10 MG/ML (20ML VIAL) INF ONE ×2 (14:45)
[2021-10-15] MEDS ORDERED: HEPARIN NA (PORCINE) 5,000 UNITS/ML 1ML VIAL IVPUSH ONE (15:40)
[2021-10-15] MEDS ORDERED: MELATONIN 5 MG TABLETS PO PRN (17:45)
[2021-10-15] MEDS ORDERED: ACETAMINOPHEN 325 MG TABLET (FP) PO PRN (18:04)
[2021-10-15] MEDS: SENNOSIDES 8.6MG TABLET (FP) PO SCH (21:09)
[2021-10-15] MEDS: APIXABAN 5 MG TABLET PO SCH (21:10)
[2021-10-15] MEDS: risperiDONE 1 MG TABLET PO SCH (21:11)
[2021-10-16 09:18] LABS: BASO % 0.4 % (0-2.0); EOS % 5.1 % (0-4.5); HEMATOCRIT 27.2 % (35.4-49); HEMOGLOBIN 9.4 GM/dL (11.7-16.9); LYMPH % 10.6 % (8-40); MCH 36.7 pg (25.7-33.7); MCHC 34.4 g/dl (32.0-35.9); MEAN CELL VOLUME 106.7 fl (80-96); MONO % 8.5 % (3.8-10.2); NEUT % 75.4 % (42.8-82.8); PLATELET COUNT 197 10^3/uL (134-434); RBC 2.55 M/mm3 (4.00-5.60); RDW 15.1 % (11.9-15.9); WHITE BLOOD COUNT 6.1 K/mm3 (4.0-10.0)
[2021-10-16] MEDS: PANTOPRAZOLE 40 MG TABLET PO SCH (09:27)
[2021-10-16] MEDS: CITALOPRAM HYDROBROMIDE 10 MG TABLET PO SCH (09:27)
[2021-10-16] MEDS: BENZTROPINE MESYLATE 1 MG TABLET PO SCH (09:27)
[2021-10-16] MEDS: levETIRAcetam 500 MG TABLET (FP) PO SCH (09:27)
[2021-10-16] MEDS: APIXABAN 5 MG TABLET PO SCH ×2 (09:27→21:31)
[2021-10-16] MEDS: LACOSAMIDE 50 MG TABLET PO SCH ×2 (09:27→21:31)
[2021-10-16] MEDS: PHENYTOIN 100 MG/4 ML U-D CUP PO SCH ×2 (09:28→21:32)
[2021-10-16] MEDS ORDERED: levETIRAcetam 500 MG TABLET (FP) PO SCH ×3 (12:00)
[2021-10-16 12:04] LABS: INR 1.49 (0.83-1.09); PROTHROMBIN TIME (PATIENT) 17.2 SEC (9.7-13.0)
[2021-10-16 12:07] LABS: ACTIVATED PTT 30.9 SECONDS (25.2-36.5)
[2021-10-16 12:30] LABS: CHLORIDE 102 mmol/L (98-107); SODIUM 143 mmol/L (136-145)
[2021-10-16 12:34] LABS: ALBUMIN 3.6 g/dl (3.4-5.0); ANION GAP 13 MMOL/L (8-16); BLOOD UREA NITROGEN 77.5 mg/dL (7-18); CALCIUM 8.5 mg/dL (8.5-10.1); CO2 29 mmol/L (21-32); GLUCOSE,RANDOM 149 mg/dL (74-106)
[2021-10-16 12:37] LABS: SGOT/AST 18 U/L (15-37); SGPT/ALT 34 U/L (13-61)
[2021-10-16 12:40] LABS: ALK PHOS 222 U/L (45-117); BILIRUBIN,TOTAL 0.4 mg/dL (0.2-1); TOT PROT 7.3 g/dl (6.4-8.2)
[2021-10-16] MEDS ORDERED: SODIUM CHLORIDE 250 ML IV PRN (14:48)
[2021-10-16] MEDS ORDERED: HEPARIN NA (PORCINE) 5,000 UNITS/ML 1ML VIAL IVPUSH ONE (14:48)
[2021-10-16] MEDS: SENNOSIDES 8.6MG TABLET (FP) PO SCH (21:31)
[2021-10-16] MEDS: risperiDONE 1 MG TABLET PO SCH (21:31)
[2021-10-17 09:22] LABS: BASO % 0.2 % (0-2.0); EOS % 10.1 % (0-4.5); HEMATOCRIT 23.1 % (35.4-49); HEMOGLOBIN 7.9 GM/dL (11.7-16.9); LYMPH % 15.4 % (8-40); MCH 36.6 pg (25.7-33.7); MCHC 34.2 g/dl (32.0-35.9); MEAN CELL VOLUME 107.1 fl (80-96); MEAN PLT VOLUME 7.7 fl (7.5-11.1); MONO % 9.4 % (3.8-10.2); NEUT % 64.9 % (42.8-82.8); PLATELET COUNT 158 10^3/uL (134-434); RBC 2.16 M/mm3 (4.00-5.60); RDW 14.8 % (11.9-15.9); WHITE BLOOD COUNT 4.2 K/mm3 (4.0-10.0)
[2021-10-17 09:52] LABS: ANISOCYTOSIS 2+; MACROCYTOSIS 0
[2021-10-17 10:15] LABS: CHLORIDE 107 mmol/L (98-107); SODIUM 144 mmol/L (136-145)
[2021-10-17 10:24] LABS: CALCIUM 8.3 mg/dL (8.5-10.1)
[2021-10-17 10:25] LABS: ALBUMIN 3.4 g/dl (3.4-5.0); ANION GAP 13 MMOL/L (8-16); BLOOD UREA NITROGEN 91.8 mg/dL (7-18); CO2 24 mmol/L (21-32); GLUCOSE,RANDOM 103 mg/dL (74-106)
[2021-10-17 10:27] LABS: SGPT/ALT 28 U/L (13-61)
[2021-10-17 10:28] LABS: SGOT/AST 14 U/L (15-37)
[2021-10-17 10:30] LABS: ALK PHOS 193 U/L (45-117); BILIRUBIN,TOTAL 0.3 mg/dL (0.2-1); TOT PROT 6.8 g/dl (6.4-8.2)
[2021-10-17 10:32] LABS: CREATININE 9.6 mg/dL (0.55-1.3)
[2021-10-17] MEDS ORDERED: HEPARIN NA (PORCINE) 5,000 UNITS/ML 1ML VIAL SQ ONE (11:32)
[2021-10-17] MEDS ORDERED: MIDAZOLAM HCL 2 MG/2 ML SINGLE DOSE VIAL ONE (11:36)
[2021-10-17] MEDS ORDERED: CLINDAMYCIN PHOSPHATE 600 MG/4 ML VIAL ONE (11:41)
[2021-10-17] MEDS ORDERED: CLINDAMYCIN 600 MG PREMIX BAG IVPB ONE (12:00)
[2021-10-17] MEDS ORDERED: LIDOCAINE HCL 1%, 10 MG/ML (50 mL VIAL) SQ ONE (12:10)
[2021-10-17] MEDS ORDERED: oxyCODONE HCL 5 MG TABLET PO PRN ×2 (12:28→12:50)
[2021-10-17] MEDS ORDERED: PROMETHAZINE HCL 25 MG/1 ML VIAL IVPUSH PRN ×2 (12:28→12:50)
[2021-10-17] MEDS ORDERED: ONDANSETRON 4 MG/2 ML VIAL IVPUSH PRN ×2 (12:28→12:50)
[2021-10-17] MEDS ORDERED: MELATONIN 5 MG TABLETS PO PRN (12:50)
[2021-10-17] MEDS ORDERED: SODIUM CHLORIDE 250 ML IV PRN (12:50)
[2021-10-17] MEDS ORDERED: ACETAMINOPHEN 325 MG TABLET (FP) PO PRN (12:50)
[2021-10-17] MEDS: APIXABAN 5 MG TABLET PO SCH ×2 (14:45→22:08)
[2021-10-17] MEDS: CITALOPRAM HYDROBROMIDE 10 MG TABLET PO SCH (14:45)
[2021-10-17] MEDS: BENZTROPINE MESYLATE 1 MG TABLET PO SCH (14:46)
[2021-10-17] MEDS: levETIRAcetam 500 MG TABLET (FP) PO SCH (14:47)
[2021-10-17] MEDS: PHENYTOIN 100 MG/4 ML U-D CUP PO SCH ×2 (14:47→22:08)
[2021-10-17] MEDS: PANTOPRAZOLE 40 MG TABLET PO SCH (14:48)
[2021-10-17] MEDS: LACOSAMIDE 50 MG TABLET PO SCH ×2 (15:15→22:09)
[2021-10-17] MEDS: SENNOSIDES 8.6MG TABLET (FP) PO SCH (22:09)
[2021-10-17] MEDS: risperiDONE 1 MG TABLET PO SCH (22:09)
[2021-10-18 10:11] LABS: BASO % 0.4 % (0-2.0); EOS % 11.5 % (0-4.5); HEMATOCRIT 22.3 % (35.4-49); HEMOGLOBIN 7.6 GM/dL (11.7-16.9); LYMPH % 20.7 % (8-40); MCH 36.2 pg (25.7-33.7); MCHC 34.1 g/dl (32.0-35.9); MEAN CELL VOLUME 106.2 fl (80-96); MEAN PLT VOLUME 7.6 fl (7.5-11.1); MONO % 9.7 % (3.8-10.2); NEUT % 57.7 % (42.8-82.8); PLATELET COUNT 169 10^3/uL (134-434); RDW 15.1 % (11.9-15.9); WHITE BLOOD COUNT 3.6 K/mm3 (4.0-10.0)
[2021-10-18] MEDS: PANTOPRAZOLE 40 MG TABLET PO SCH (10:14)
[2021-10-18] MEDS: LACOSAMIDE 50 MG TABLET PO SCH ×2 (10:14→22:32)
[2021-10-18] MEDS: APIXABAN 5 MG TABLET PO SCH ×2 (10:14→22:32)
[2021-10-18] MEDS: BENZTROPINE MESYLATE 1 MG TABLET PO SCH (10:14)
[2021-10-18] MEDS: levETIRAcetam 500 MG TABLET (FP) PO SCH ×2 (10:14→13:39)
[2021-10-18] MEDS: CITALOPRAM HYDROBROMIDE 10 MG TABLET PO SCH (10:14)
[2021-10-18] MEDS: PHENYTOIN 100 MG/4 ML U-D CUP PO SCH ×2 (10:15→22:32)
[2021-10-18 10:32] LABS: CHLORIDE 103 mmol/L (98-107); SODIUM 143 mmol/L (136-145)
[2021-10-18 10:39] LABS: ALBUMIN 3.5 g/dl (3.4-5.0); GLUCOSE,RANDOM 99 mg/dL (74-106)
[2021-10-18 10:41] LABS: ANION GAP 17 MMOL/L (8-16); BILIRUBIN,TOTAL 0.4 mg/dL (0.2-1); CO2 23 mmol/L (21-32); TOT PROT 7.1 g/dl (6.4-8.2)
[2021-10-18 10:42] LABS: ALK PHOS 197 U/L (45-117); SGOT/AST 18 U/L (15-37)
[2021-10-18 10:43] LABS: SGPT/ALT 30 U/L (13-61)
[2021-10-18 10:44] LABS: CALCIUM 8.6 mg/dL (8.5-10.1)
[2021-10-18 10:52] LABS: BLOOD UREA NITROGEN 107.6 mg/dL (7-18); CREATININE 11.4 mg/dL (0.55-1.3)
[2021-10-18] MEDS ORDERED: SODIUM CHLORIDE 250 ML IV PRN (12:57)
[2021-10-18] MEDS ORDERED: EPOETIN ALFA-EPBX 4,000 UNIT/ML VIAL SQ ONE (15:27)
[2021-10-18] MEDS: risperiDONE 1 MG TABLET PO SCH (22:32)
[2021-10-18] MEDS: SENNOSIDES 8.6MG TABLET (FP) PO SCH (22:32)
[2021-10-19] MEDS ORDERED: SODIUM CHLORIDE 250 ML IV PRN (08:00)
[2021-10-19] MEDS ORDERED: EPOETIN ALFA-EPBX 10,000 UNIT/ML VIAL SQ ONE (09:00)
[2021-10-19] MEDS: CITALOPRAM HYDROBROMIDE 10 MG TABLET PO SCH (12:53)
[2021-10-19] MEDS: BENZTROPINE MESYLATE 1 MG TABLET PO SCH (12:54)
[2021-10-19] MEDS: APIXABAN 5 MG TABLET PO SCH ×3 (12:55→21:27)
[2021-10-19] MEDS: PHENYTOIN 100 MG/4 ML U-D CUP PO SCH (12:55)
[2021-10-19] MEDS: PANTOPRAZOLE 40 MG TABLET PO SCH (12:56)
[2021-10-19] MEDS: levETIRAcetam 500 MG TABLET (FP) PO SCH (12:56)
[2021-10-19] MEDS: LACOSAMIDE 50 MG TABLET PO SCH ×3 (12:56→21:28)
[2021-10-19 14:49] VITALS: BMI 23.3
[2021-10-19] MEDS ORDERED: levETIRAcetam 500 MG TABLET (FP) PO SCH (15:30)
[2021-10-19 16:48] LABS: BASO % 0.2 % (0-2.0); EOS % 5.7 % (0-4.5); HEMATOCRIT 23.7 % (35.4-49); HEMOGLOBIN 8.1 GM/dL (11.7-16.9); LYMPH % 12.6 % (8-40); MCH 35.9 pg (25.7-33.7); MCHC 34.2 g/dl (32.0-35.9); MEAN CELL VOLUME 105.1 fl (80-96); MEAN PLT VOLUME 7.5 fl (7.5-11.1); MONO % 8.6 % (3.8-10.2); NEUT % 72.9 % (42.8-82.8); PLATELET COUNT 187 10^3/uL (134-434); RBC 2.26 M/mm3 (4.00-5.60); RDW 14.7 % (11.9-15.9); WHITE BLOOD COUNT 5.5 K/mm3 (4.0-10.0)
[2021-10-19 17:17] LABS: CALCIUM 8.2 mg/dL (8.5-10.1)
[2021-10-19 17:18] LABS: ALBUMIN 3.6 g/dl (3.4-5.0)
[2021-10-19 17:21] LABS: CREATININE 4.6 mg/dL (0.55-1.3); PHOSPHOROUS 2.9 mg/dL (2.5-4.9)
[2021-10-19 17:23] LABS: BILIRUBIN,TOTAL 0.3 mg/dL (0.2-1); TOT PROT 7.4 g/dl (6.4-8.2)
[2021-10-19] MEDS: SENNOSIDES 8.6MG TABLET (FP) PO SCH ×2 (21:25→21:27)
[2021-10-19] MEDS: risperiDONE 0.5 MG TABLET PO SCH ×2 (21:25→21:29)
[2021-10-20 09:41] LABS: BASO % 0.4 % (0-2.0); EOS % 7.4 % (0-4.5); HEMATOCRIT 23.5 % (35.4-49); HEMOGLOBIN 7.9 GM/dL (11.7-16.9); LYMPH % 15.4 % (8-40); MCH 35.7 pg (25.7-33.7); MCHC 33.6 g/dl (32.0-35.9); MEAN CELL VOLUME 106.1 fl (80-96); MEAN PLT VOLUME 7.9 fl (7.5-11.1); MONO % 10.4 % (3.8-10.2); NEUT % 66.4 % (42.8-82.8); PLATELET COUNT 172 10^3/uL (134-434); RBC 2.22 M/mm3 (4.00-5.60); WHITE BLOOD COUNT 4.5 K/mm3 (4.0-10.0)
[2021-10-20 10:03] LABS: CALCIUM 8.4 mg/dL (8.5-10.1)
[2021-10-20 10:04] LABS: ALBUMIN 3.4 g/dl (3.4-5.0); BLOOD UREA NITROGEN 41.5 mg/dL (7-18); MAGNESIUM 2.1 mg/dL (1.8-2.4)
[2021-10-20 10:07] LABS: CREATININE 6.3 mg/dL (0.55-1.3); PHOSPHOROUS 4.6 mg/dL (2.5-4.9)
[2021-10-20 10:08] LABS: BILIRUBIN,TOTAL 0.8 mg/dL (0.2-1); TOT PROT 7.1 g/dl (6.4-8.2)
[2021-10-20] MEDS: LACOSAMIDE 50 MG TABLET PO SCH ×2 (10:18→22:37)
[2021-10-20] MEDS: PANTOPRAZOLE 40 MG TABLET PO SCH (10:18)
[2021-10-20] MEDS: CITALOPRAM HYDROBROMIDE 10 MG TABLET PO SCH (10:18)
[2021-10-20] MEDS: APIXABAN 5 MG TABLET PO SCH ×2 (10:18→22:39)
[2021-10-20] MEDS: levETIRAcetam 500 MG TABLET (FP) PO SCH ×2 (10:18→22:39)
[2021-10-20] MEDS: risperiDONE 0.5 MG TABLET PO SCH (22:39)
[2021-10-20] MEDS: SENNOSIDES 8.6MG TABLET (FP) PO SCH (22:39)
[2021-10-21 09:49] LABS: BASO % 0.2 % (0-2.0); EOS % 5.5 % (0-4.5); HEMATOCRIT 26.3 % (35.4-49); HEMOGLOBIN 8.7 GM/dL (11.7-16.9); LYMPH % 12.8 % (8-40); MCH 35.7 pg (25.7-33.7); MCHC 33.3 g/dl (32.0-35.9); MEAN CELL VOLUME 107.2 fl (80-96); MEAN PLT VOLUME 8.5 fl (7.5-11.1); MONO % 6.4 % (3.8-10.2); NEUT % 75.1 % (42.8-82.8); PLATELET COUNT 144 10^3/uL (134-434); RBC 2.45 M/mm3 (4.00-5.60); RDW 14.9 % (11.9-15.9); WHITE BLOOD COUNT 5.5 K/mm3 (4.0-10.0)
[2021-10-21 10:00] LABS: CHLORIDE 102 mmol/L (98-107); SODIUM 141 mmol/L (136-145)
[2021-10-21 10:12] LABS: ALBUMIN 3.4 g/dl (3.4-5.0); ANION GAP 14 MMOL/L (8-16); CO2 25 mmol/L (21-32)
[2021-10-21 10:13] LABS: BLOOD UREA NITROGEN 65.7 mg/dL (7-18); GLUCOSE,RANDOM 93 mg/dL (74-106); MAGNESIUM 2.1 mg/dL (1.8-2.4)
[2021-10-21 10:14] LABS: CALCIUM 8.5 mg/dL (8.5-10.1); SGOT/AST 16 U/L (15-37); SGPT/ALT 33 U/L (13-61)
[2021-10-21 10:16] LABS: BILIRUBIN,TOTAL 0.6 mg/dL (0.2-1); TOT PROT 7.2 g/dl (6.4-8.2)
[2021-10-21 10:17] LABS: ALK PHOS 216 U/L (45-117)
[2021-10-21 10:18] LABS: PHOSPHOROUS 6.4 mg/dL (2.5-4.9)
[2021-10-21 10:22] LABS: ANISOCYTOSIS 3+; MACROCYTOSIS 0
[2021-10-21 10:32] LABS: CREATININE 8.8 mg/dL (0.55-1.3)
[2021-10-21] MEDS: levETIRAcetam 500 MG TABLET (FP) PO SCH ×3 (11:15→22:27)
[2021-10-21] MEDS: LACOSAMIDE 50 MG TABLET PO SCH ×2 (11:16→22:26)
[2021-10-21] MEDS: APIXABAN 5 MG TABLET PO SCH ×2 (11:16→22:26)
[2021-10-21] MEDS: CITALOPRAM HYDROBROMIDE 10 MG TABLET PO SCH (11:16)
[2021-10-21] MEDS: PANTOPRAZOLE 40 MG TABLET PO SCH (11:16)
[2021-10-21] MEDS: risperiDONE 0.5 MG TABLET PO SCH (22:26)
[2021-10-21] MEDS: SENNOSIDES 8.6MG TABLET (FP) PO SCH (22:26)
[2021-10-22] MEDS: APIXABAN 5 MG TABLET PO SCH (09:34)
[2021-10-22] MEDS: CITALOPRAM HYDROBROMIDE 10 MG TABLET PO SCH (09:34)
[2021-10-22] MEDS: PANTOPRAZOLE 40 MG TABLET PO SCH (09:34)
[2021-10-22] MEDS: LACOSAMIDE 50 MG TABLET PO SCH (09:34)
[2021-10-22] MEDS: levETIRAcetam 500 MG TABLET (FP) PO SCH (09:35)
[2021-10-22 11:25] VITALS: BP 111/66; PULSE 85; TEMP 98.5
== END 2021-10-22 10:27 | DRG 252 ==
LOC: JER 12:37 → JERBED 21:16 → J8W 10-14 16:24
PROVIDERS: ADMIT Hospitalist; ATTEND Internal Medicine
PROC: 037 Upper Arteries, Dilation (ICD-10-PCS; 2021-10-15)
PROC: B31JZZZ Fluoroscopy of Left Upper Extremity Arteries (ICD-10-PCS; 2021-10-15)
PROC: 05CY0ZZ Extirpation of Matter from Upper Vein, Open Approach (ICD-10-PCS; principal; 2021-10-15 13:00)
PROC: 05CY0ZZ Extirpation of Matter from Upper Vein, Open Approach (ICD-10-PCS; 2021-10-17)
PROC: 3E05017 Introduction of Other Thrombolytic into Peripheral Artery, Open Approach (ICD-10-PCS; 2021-10-17)
PROC: B31JZZZ Fluoroscopy of Left Upper Extremity Arteries (ICD-10-PCS; 2021-10-17)
DX: T82.868A Thrombosis due to vascular prosthetic devices, implants and grafts, initial encounter (principal); N18.6 End stage renal disease; G93.41 Metabolic encephalopathy; I12.0 Hypertensive chronic kidney disease with stage 5 chronic kidney disease or end stage renal disease; F31.9 Bipolar disorder, unspecified; F20.9 Schizophrenia, unspecified; K21.9 Gastro-esophageal reflux disease without esophagitis; Y83.9 Surgical procedure, unspecified as the cause of abnormal reaction of the patient, or of later complication, without mention of misadventure at the time of the procedure; Z99.2 Dependence on renal dialysis
CPT/HCPCS: 36415; 70450-TC; 71045-TC-FY; 76000-TC-FY; 76937; 80048; 80053; 80177; 80185; 81003; 82607; 82747; 83735; 84100; 85014; 85025; 85610; 85730; 86803; 86850; 86900; 86901; 87086; 87340; 87517; 93005; 93010; 94760; 97116-GP; 97161-GP; 99285-25; C9803-CS; J1644; J2794; Q5106; U0003; U0005

== ENCOUNTER 2021-12-11 22:50 | Inpatient (IN) | payer OTHER ==
[2021-12-11] MEDS ORDERED: ACETAMINOPHEN 1000 MG/100 ML BAG IVPB ONE (23:04)
[2021-12-11 23:06] VITALS: BMI 31.6
[2021-12-11] MEDS ORDERED: ACETAMINOPHEN INJECTION 100 ML IVPB ONE (23:15)
[2021-12-11 23:32] LABS: BASO % 0.6 % (0-2.0); HEMATOCRIT 26.4 % (35.4-49); HEMOGLOBIN 9.1 GM/dL (11.7-16.9); LYMPH % 1.6 % (8-40); MCH 34.9 pg (25.7-33.7); MCHC 34.5 g/dl (32.0-35.9); MEAN CELL VOLUME 101.3 fl (80-96); MEAN PLT VOLUME 7.8 fl (7.5-11.1); MONO % 5.8 % (3.8-10.2); PLATELET COUNT 155 10^3/uL (134-434); RBC 2.61 M/mm3 (4.00-5.60); RDW 16.9 % (11.9-15.9); WHITE BLOOD COUNT 10.1 K/mm3 (4.0-10.0)
[2021-12-11 23:34] LABS: VENOUS BASE EXCESS -0.7 mmol/L (-2-2); VENOUS O2 SATURATION 59.8 % (70-80); VENOUS PCO2 39.2 mmHg (38-52); VENOUS PH 7.404 (7.310-7.410)
[2021-12-11 23:39] LABS: INR 2.58 (0.83-1.09); PROTHROMBIN TIME (PATIENT) 29.9 SEC (9.7-13.0)
[2021-12-11 23:41] LABS: ACTIVATED PTT 29.8 SECONDS (25.2-36.5)
[2021-12-11 23:53] LABS: CHLORIDE 99 mmol/L (98-107); SODIUM 138 mmol/L (136-145)
[2021-12-11] MEDS ORDERED: VANCOMYCIN 1 GM in D5W (PRE-DOCKED) 1,000 MG/250 ML IVPB ONE (23:54)
[2021-12-11] MEDS ORDERED: PIPERACILLIN/TAZOB 3.375 GM 3.375 GM in DEXTROSE 5%-WATER - 50 ML IVPB ONE (23:54)
[2021-12-11 23:55] LABS: ALBUMIN 3.1 g/dl (3.4-5.0); ANION GAP 15 MMOL/L (8-16); CALCIUM 7.9 mg/dL (8.5-10.1); CO2 24 mmol/L (21-32); GLUCOSE,RANDOM 152 mg/dL (74-106); MAGNESIUM 1.9 mg/dL (1.8-2.4)
[2021-12-11 23:56] LABS: BLOOD UREA NITROGEN 92.9 mg/dL (7-18)
[2021-12-11 23:58] LABS: SGOT/AST 36 U/L (15-37); SGPT/ALT 36 U/L (13-61)
[2021-12-11 23:59] LABS: PHOSPHOROUS 2.6 mg/dL (2.5-4.9)
[2021-12-12] LABS: BILIRUBIN,TOTAL 0.6 mg/dL (0.2-1)
[2021-12-12 00:01] LABS: ALK PHOS 233 U/L (45-117)
[2021-12-12] MEDS ORDERED: VANCOMYCIN/WATER FOR INJ (PEG) 1,000 MG/200 ML BAG IVPB ONE (00:06)
[2021-12-12] MEDS ORDERED: PIPERACILLIN/TAZOB 3.375 GM 3.375 GM/50 ML BAG IVPB ONE (00:06)
[2021-12-12 00:08] LABS: ANISOCYTOSIS 2+; MACROCYTOSIS 0; TEAR DROP CELLS 1+
[2021-12-12 00:11] LABS: CREATININE 8.5 mg/dL (0.55-1.3)
[2021-12-12] MEDS ORDERED: SODIUM CHLORIDE 250 ML IV STA (04:34)
[2021-12-12] MEDS ORDERED: LACTATED RINGERS SOLUTION 1,000 ML IV SCH (08:30)
[2021-12-12] MEDS: LACTATED RINGERS SOLUTION 1,000 ML/1,000 ML INFUS.BAG IV STA ×2 (08:36→08:42)
[2021-12-12] MEDS ORDERED: SODIUM ZIRCONIUM CYCLOSILICATE (LOKELMA) 5 GM PACKET PO ONE (09:15)
[2021-12-12] MEDS: CITALOPRAM HYDROBROMIDE 10 MG TABLET PO SCH (09:52)
[2021-12-12] MEDS ORDERED: PIPERACILLIN/TAZOB 2.25 GM 2.25 GM in DEXTROSE 5%-WATER - 50 ML IVPB SCH (10:00)
[2021-12-12] MEDS: LACOSAMIDE 50 MG TABLET PO SCH ×2 (10:10→22:46)
[2021-12-12] MEDS: PANTOPRAZOLE 40 MG TABLET PO SCH (10:10)
[2021-12-12] MEDS: levETIRAcetam 500 MG TABLET (FP) PO SCH ×2 (10:10→22:46)
[2021-12-12] MEDS: APIXABAN 5 MG TABLET PO SCH ×2 (11:06→22:46)
[2021-12-12] MEDS ORDERED: EPOETIN ALFA-EPBX 10,000 UNIT/ML VIAL SQ ONE (14:00)
[2021-12-12] MEDS ORDERED: SODIUM CHLORIDE 250 ML IV PRN (14:00)
[2021-12-12] MEDS: PIPERACILLIN/TAZOB 2.25 GM 2.25 GM in DEXTROSE 5%-WATER - 50 ML IVPB SCH (17:47)
[2021-12-12] MEDS: ACETAMINOPHEN 325 MG TABLET (FP) PO PRN (20:30)
[2021-12-12] MEDS: SENNOSIDES 8.6MG TABLET (FP) PO SCH (22:46)
[2021-12-12] MEDS: MELATONIN 5 MG TABLETS PO SCH (22:46)
[2021-12-13] MEDS: risperiDONE 0.5 MG TABLET PO SCH ×2 (01:22→21:24)
[2021-12-13] MEDS: PIPERACILLIN/TAZOB 2.25 GM 2.25 GM in DEXTROSE 5%-WATER - 50 ML IVPB SCH ×3 (02:15→17:20)
[2021-12-13] MEDS: CITALOPRAM HYDROBROMIDE 10 MG TABLET PO SCH (09:04)
[2021-12-13] MEDS: APIXABAN 5 MG TABLET PO SCH ×2 (09:04→21:25)
[2021-12-13] MEDS: levETIRAcetam 500 MG TABLET (FP) PO SCH ×3 (09:04→21:25)
[2021-12-13] MEDS: LACOSAMIDE 50 MG TABLET PO SCH ×2 (09:04→21:26)
[2021-12-13] MEDS: PANTOPRAZOLE 40 MG TABLET PO SCH (09:04)
[2021-12-13 09:13] LABS: INR 2.02 (0.83-1.09); PROTHROMBIN TIME (PATIENT) 23.4 SEC (9.7-13.0)
[2021-12-13 09:14] LABS: ACTIVATED PTT 31.3 SECONDS (25.2-36.5)
[2021-12-13 09:22] LABS: BASO % 0.5 % (0-2.0); EOS % 0.7 % (0-4.5); HEMOGLOBIN 8.1 GM/dL (11.7-16.9); LYMPH % 6.6 % (8-40); MCH 33.7 pg (25.7-33.7); MCHC 33.5 g/dl (32.0-35.9); MEAN CELL VOLUME 100.7 fl (80-96); MEAN PLT VOLUME 8.9 fl (7.5-11.1); MONO % 11.1 % (3.8-10.2); NEUT % 81.1 % (42.8-82.8); PLATELET COUNT 127 10^3/uL (134-434); RBC 2.39 M/mm3 (4.00-5.60)
[2021-12-13 09:31] LABS: CALCIUM 8.2 mg/dL (8.5-10.1)
[2021-12-13 09:32] LABS: ALBUMIN 2.8 g/dl (3.4-5.0)
[2021-12-13 09:35] LABS: CREATININE 5.6 mg/dL (0.55-1.3); PHOSPHOROUS 4.5 mg/dL (2.5-4.9)
[2021-12-13 09:37] LABS: BILIRUBIN,TOTAL 0.7 mg/dL (0.2-1); TOT PROT 6.3 g/dl (6.4-8.2)
[2021-12-13 09:46] LABS: BLOOD UREA NITROGEN 53.8 mg/dL (7-18)
[2021-12-13 10:05] LABS: ANISOCYTOSIS 0; MACROCYTOSIS 0; PLATELET ESTIMATE DECREASED
[2021-12-13] MEDS ORDERED: LACTATED RINGERS SOLUTION 1,000 ML/1,000 ML INFUS.BAG IV STA (11:25)
[2021-12-13] MEDS ORDERED: LACTATED RINGERS SOLUTION 1000 ML INFUS.BAG IV ONE (11:32)
[2021-12-13] MEDS: MELATONIN 5 MG TABLETS PO SCH (21:24)
[2021-12-13] MEDS: SENNOSIDES 8.6MG TABLET (FP) PO SCH (21:26)
[2021-12-14] MEDS: PIPERACILLIN/TAZOB 2.25 GM 2.25 GM in DEXTROSE 5%-WATER - 50 ML IVPB SCH ×2 (01:29→12:43)
[2021-12-14] MEDS: ACETAMINOPHEN 325 MG TABLET (FP) PO PRN (05:44)
[2021-12-14] MEDS ORDERED: SODIUM CHLORIDE 250 ML IV PRN (08:11)
[2021-12-14] MEDS ORDERED: EPOETIN ALFA-EPBX 10,000 UNIT/ML VIAL IVPUSH ONE (08:30)
[2021-12-14 09:14] LABS: HEMATOCRIT 24.6 % (35.4-49); HEMOGLOBIN 8.1 GM/dL (11.7-16.9); MCH 33.7 pg (25.7-33.7); MEAN PLT VOLUME 8.9 fl (7.5-11.1); PLATELET COUNT 153 10^3/uL (134-434); RBC 2.41 M/mm3 (4.00-5.60); RDW 16.9 % (11.9-15.9); WHITE BLOOD COUNT 5.1 K/mm3 (4.0-10.0)
[2021-12-14 09:37] LABS: CHLORIDE 102 mmol/L (98-107); SODIUM 141 mmol/L (136-145)
[2021-12-14 09:42] LABS: ALBUMIN 2.8 g/dl (3.4-5.0); ANION GAP 13 MMOL/L (8-16); BLOOD UREA NITROGEN 74.1 mg/dL (7-18); CALCIUM 8.5 mg/dL (8.5-10.1); CO2 26 mmol/L (21-32); GLUCOSE,RANDOM 142 mg/dL (74-106)
[2021-12-14 09:45] LABS: PHOSPHOROUS 3.8 mg/dL (2.5-4.9); SGPT/ALT 52 U/L (13-61)
[2021-12-14 09:46] LABS: SGOT/AST 45 U/L (15-37)
[2021-12-14 09:47] LABS: BILIRUBIN,TOTAL 0.5 mg/dL (0.2-1); TOT PROT 6.4 g/dl (6.4-8.2)
[2021-12-14 09:48] LABS: ALK PHOS 158 U/L (45-117); CREATININE 7.6 mg/dL (0.55-1.3)
[2021-12-14] MEDS: PANTOPRAZOLE 40 MG TABLET PO SCH (12:42)
[2021-12-14] MEDS: levETIRAcetam 500 MG TABLET (FP) PO SCH ×2 (12:42→21:41)
[2021-12-14] MEDS: APIXABAN 5 MG TABLET PO SCH ×2 (12:42→21:40)
[2021-12-14] MEDS: CITALOPRAM HYDROBROMIDE 10 MG TABLET PO SCH (12:43)
[2021-12-14] MEDS: LACOSAMIDE 50 MG TABLET PO SCH ×2 (12:43→21:41)
[2021-12-14] MEDS ORDERED: VANCOMYCIN/WATER FOR INJ (PEG) 1,000 MG/200 ML BAG IVPB ONE (16:00)
[2021-12-14] MEDS ORDERED: VANCOMYCIN 1 GM in D5W (PRE-DOCKED) 1,000 MG/250 ML IVPB ONE (16:13)
[2021-12-14] MEDS: MELATONIN 5 MG TABLETS PO SCH (21:40)
[2021-12-14] MEDS: risperiDONE 0.5 MG TABLET PO SCH (21:40)
[2021-12-14] MEDS: SENNOSIDES 8.6MG TABLET (FP) PO SCH (21:41)
[2021-12-15] MEDS: CITALOPRAM HYDROBROMIDE 10 MG TABLET PO SCH (09:24)
[2021-12-15] MEDS: LACOSAMIDE 50 MG TABLET PO SCH ×2 (09:25→22:43)
[2021-12-15] MEDS: APIXABAN 5 MG TABLET PO SCH ×2 (09:25→22:43)
[2021-12-15] MEDS: levETIRAcetam 500 MG TABLET (FP) PO SCH ×2 (09:25→22:43)
[2021-12-15] MEDS: PANTOPRAZOLE 40 MG TABLET PO SCH (09:25)
[2021-12-15 09:49] LABS: HEMOGLOBIN 8.2 GM/dL (11.7-16.9); MCH 34.7 pg (25.7-33.7); MCHC 34.1 g/dl (32.0-35.9); MEAN CELL VOLUME 101.7 fl (80-96); MEAN PLT VOLUME 8.6 fl (7.5-11.1); PLATELET COUNT 156 10^3/uL (134-434); RBC 2.36 M/mm3 (4.00-5.60); WHITE BLOOD COUNT 5.3 K/mm3 (4.0-10.0)
[2021-12-15 10:22] LABS: BILIRUBIN,TOTAL 0.5 mg/dL (0.2-1); TOT PROT 6.6 g/dl (6.4-8.2)
[2021-12-15 10:25] LABS: CALCIUM 8.7 mg/dL (8.5-10.1)
[2021-12-15 10:26] LABS: ALBUMIN 2.9 g/dl (3.4-5.0)
[2021-12-15 10:27] LABS: BLOOD UREA NITROGEN 46.4 mg/dL (7-18); CREATININE 5.7 mg/dL (0.55-1.3); PHOSPHOROUS 3.1 mg/dL (2.5-4.9)
[2021-12-15 12:29] LABS: ANISOCYTOSIS 0; MACROCYTOSIS 1+
[2021-12-15] MEDS: ACETAMINOPHEN 325 MG TABLET (FP) PO PRN (14:16)
[2021-12-15] MEDS ORDERED: VANCOMYCIN/WATER FOR INJ (PEG) 1,000 MG/200 ML BAG IVPB ONE (18:00)
[2021-12-15] MEDS: SENNOSIDES 8.6MG TABLET (FP) PO SCH (22:43)
[2021-12-15] MEDS: risperiDONE 0.5 MG TABLET PO SCH (22:43)
[2021-12-15] MEDS: MELATONIN 5 MG TABLETS PO SCH ×2 (22:43→23:24)
[2021-12-16] MEDS: levETIRAcetam 500 MG TABLET (FP) PO SCH ×3 (09:15→22:41)
[2021-12-16] MEDS: CITALOPRAM HYDROBROMIDE 10 MG TABLET PO SCH (09:15)
[2021-12-16] MEDS: APIXABAN 5 MG TABLET PO SCH ×2 (09:15→22:41)
[2021-12-16] MEDS: LACOSAMIDE 50 MG TABLET PO SCH ×2 (09:15→22:41)
[2021-12-16] MEDS: PANTOPRAZOLE 40 MG TABLET PO SCH (09:15)
[2021-12-16 09:39] LABS: INR 1.78 (0.83-1.09); PROTHROMBIN TIME (PATIENT) 20.6 SEC (9.7-13.0)
[2021-12-16 09:40] LABS: BASO % 0.5 % (0-2.0); EOS % 4.9 % (0-4.5); HEMATOCRIT 22.3 % (35.4-49); HEMOGLOBIN 7.5 GM/dL (11.7-16.9); LYMPH % 11.4 % (8-40); MCH 33.8 pg (25.7-33.7); MCHC 33.5 g/dl (32.0-35.9); MEAN CELL VOLUME 100.8 fl (80-96); MEAN PLT VOLUME 8.4 fl (7.5-11.1); MONO % 9.4 % (3.8-10.2); NEUT % 73.8 % (42.8-82.8); PLATELET COUNT 186 10^3/uL (134-434); RBC 2.21 M/mm3 (4.00-5.60); RDW 17.2 % (11.9-15.9); WHITE BLOOD COUNT 6.2 K/mm3 (4.0-10.0)
[2021-12-16 09:54] LABS: CHLORIDE 105 mmol/L (98-107); SODIUM 145 mmol/L (136-145)
[2021-12-16 09:58] LABS: ALBUMIN 2.7 g/dl (3.4-5.0); CALCIUM 8.5 mg/dL (8.5-10.1); GLUCOSE,RANDOM 97 mg/dL (74-106)
[2021-12-16 09:59] LABS: ANION GAP 13 MMOL/L (8-16); CO2 27 mmol/L (21-32)
[2021-12-16 10:01] LABS: PHOSPHOROUS 4.4 mg/dL (2.5-4.9); SGOT/AST 25 U/L (15-37); SGPT/ALT 44 U/L (13-61)
[2021-12-16 10:03] LABS: BILIRUBIN,TOTAL 0.4 mg/dL (0.2-1); TOT PROT 6.2 g/dl (6.4-8.2)
[2021-12-16 10:04] LABS: ALK PHOS 161 U/L (45-117)
[2021-12-16] MEDS: ACETAMINOPHEN 325 MG TABLET (FP) PO PRN (16:55)
[2021-12-16] MEDS: MELATONIN 5 MG TABLETS PO SCH (22:40)
[2021-12-16] MEDS: risperiDONE 0.5 MG TABLET PO SCH (22:41)
[2021-12-16] MEDS: SENNOSIDES 8.6MG TABLET (FP) PO SCH (22:41)
[2021-12-17] MEDS ORDERED: SODIUM CHLORIDE 250 ML IV PRN (07:25)
[2021-12-17] MEDS ORDERED: EPOETIN ALFA-EPBX 10,000 UNIT/ML VIAL IVPUSH ONE ×2 (08:00→10:50)
[2021-12-17 09:40] LABS: HEMATOCRIT 21.6 % (35.4-49); HEMOGLOBIN 7.4 GM/dL (11.7-16.9); MCH 34.7 pg (25.7-33.7); MCHC 34.4 g/dl (32.0-35.9); MEAN CELL VOLUME 100.7 fl (80-96); MEAN PLT VOLUME 7.8 fl (7.5-11.1); PLATELET COUNT 213 10^3/uL (134-434); RBC 2.15 M/mm3 (4.00-5.60); RDW 16.9 % (11.9-15.9); WHITE BLOOD COUNT 6.6 K/mm3 (4.0-10.0)
[2021-12-17 10:10] LABS: CHLORIDE 104 mmol/L (98-107); SODIUM 145 mmol/L (136-145)
[2021-12-17 10:14] LABS: CALCIUM 8.6 mg/dL (8.5-10.1)
[2021-12-17 10:15] LABS: ALBUMIN 2.9 g/dl (3.4-5.0); ANION GAP 17 MMOL/L (8-16); BLOOD UREA NITROGEN 98.7 mg/dL (7-18); CO2 24 mmol/L (21-32); GLUCOSE,RANDOM 111 mg/dL (74-106); MAGNESIUM 2.2 mg/dL (1.8-2.4)
[2021-12-17 10:18] LABS: PHOSPHOROUS 4.8 mg/dL (2.5-4.9); SGOT/AST 25 U/L (15-37); SGPT/ALT 41 U/L (13-61)
[2021-12-17 10:19] LABS: BILIRUBIN,TOTAL 0.5 mg/dL (0.2-1); TOT PROT 6.6 g/dl (6.4-8.2)
[2021-12-17 10:21] LABS: ALK PHOS 168 U/L (45-117)
[2021-12-17] MEDS: LACOSAMIDE 50 MG TABLET PO SCH ×2 (13:35→21:13)
[2021-12-17] MEDS: PANTOPRAZOLE 40 MG TABLET PO SCH (13:35)
[2021-12-17] MEDS: APIXABAN 5 MG TABLET PO SCH ×2 (13:35→21:14)
[2021-12-17] MEDS: levETIRAcetam 500 MG TABLET (FP) PO SCH ×2 (13:35→21:13)
[2021-12-17] MEDS: CITALOPRAM HYDROBROMIDE 10 MG TABLET PO SCH (13:36)
[2021-12-17] MEDS: SENNOSIDES 8.6MG TABLET (FP) PO SCH (21:13)
[2021-12-17] MEDS: risperiDONE 0.5 MG TABLET PO SCH (21:13)
[2021-12-17] MEDS: MELATONIN 5 MG TABLETS PO SCH (21:13)
[2021-12-18 08:40] LABS: HEMATOCRIT 24.4 % (35.4-49); HEMOGLOBIN 8.3 GM/dL (11.7-16.9); MCHC 34.2 g/dl (32.0-35.9); MEAN CELL VOLUME 102.5 fl (80-96); MEAN PLT VOLUME 7.8 fl (7.5-11.1); PLATELET COUNT 238 10^3/uL (134-434); RBC 2.38 M/mm3 (4.00-5.60); RDW 16.9 % (11.9-15.9); WHITE BLOOD COUNT 5.1 K/mm3 (4.0-10.0)
[2021-12-18 09:00] LABS: CALCIUM 8.3 mg/dL (8.5-10.1)
[2021-12-18 09:01] LABS: MAGNESIUM 1.9 mg/dL (1.8-2.4)
[2021-12-18 09:03] LABS: CREATININE 6.6 mg/dL (0.55-1.3); PHOSPHOROUS 4.9 mg/dL (2.5-4.9)
[2021-12-18 09:04] LABS: BILIRUBIN,TOTAL 0.6 mg/dL (0.2-1); TOT PROT 7.2 g/dl (6.4-8.2)
[2021-12-18 09:07] LABS: BLOOD UREA NITROGEN 49.7 mg/dL (7-18)
[2021-12-18] MEDS: PANTOPRAZOLE 40 MG TABLET PO SCH (10:30)
[2021-12-18] MEDS: APIXABAN 5 MG TABLET PO SCH ×2 (10:30→23:37)
[2021-12-18] MEDS: levETIRAcetam 500 MG TABLET (FP) PO SCH ×3 (10:30→23:37)
[2021-12-18] MEDS: CITALOPRAM HYDROBROMIDE 10 MG TABLET PO SCH (10:30)
[2021-12-18] MEDS: LACOSAMIDE 50 MG TABLET PO SCH ×2 (10:30→23:37)
[2021-12-18 14:48] VITALS: RESP 18
[2021-12-18] MEDS: MELATONIN 5 MG TABLETS PO SCH (23:37)
[2021-12-18] MEDS: SENNOSIDES 8.6MG TABLET (FP) PO SCH (23:37)
[2021-12-18] MEDS: risperiDONE 0.5 MG TABLET PO SCH (23:39)
[2021-12-19 06:20] VITALS: TEMP 98.2
[2021-12-19] MEDS ORDERED: SODIUM CHLORIDE 250 ML IV PRN (08:07)
[2021-12-19 09:03] LABS: HEMATOCRIT 24.1 % (35.4-49); MCHC 33.3 g/dl (32.0-35.9); MEAN CELL VOLUME 102.1 fl (80-96); MEAN PLT VOLUME 7.9 fl (7.5-11.1); PLATELET COUNT 276 10^3/uL (134-434); RBC 2.36 M/mm3 (4.00-5.60); RDW 17.2 % (11.9-15.9); WHITE BLOOD COUNT 5.3 K/mm3 (4.0-10.0)
[2021-12-19 09:26] LABS: CHLORIDE 108 mmol/L (98-107); SODIUM 149 mmol/L (136-145)
[2021-12-19 09:29] LABS: ALBUMIN 3.1 g/dl (3.4-5.0); ANION GAP 12 MMOL/L (8-16); CALCIUM 8.3 mg/dL (8.5-10.1); CO2 29 mmol/L (21-32); GLUCOSE,RANDOM 108 mg/dL (74-106); MAGNESIUM 2.1 mg/dL (1.8-2.4)
[2021-12-19] MEDS ORDERED: EPOETIN ALFA-EPBX 20,000 UNIT/ML VIAL SQ ONE (09:30)
[2021-12-19 09:32] LABS: PHOSPHOROUS 5.9 mg/dL (2.5-4.9); SGOT/AST 22 U/L (15-37); SGPT/ALT 40 U/L (13-61)
[2021-12-19 09:34] LABS: BILIRUBIN,TOTAL 0.4 mg/dL (0.2-1); TOT PROT 7.2 g/dl (6.4-8.2)
[2021-12-19 09:35] LABS: ALK PHOS 194 U/L (45-117)
[2021-12-19 09:39] LABS: BLOOD UREA NITROGEN 76.9 mg/dL (7-18); CREATININE 9.3 mg/dL (0.55-1.3)
[2021-12-19] MEDS ORDERED: VITAMIN B COMP W-C 1 EA TABLET (NEPHRO-VITE) PO SCH (10:00)
[2021-12-19 12:47] VITALS: BP 114/54; PULSE 93
[2021-12-19] MEDS: levETIRAcetam 500 MG TABLET (FP) PO SCH (13:29)
[2021-12-19] MEDS: PANTOPRAZOLE 40 MG TABLET PO SCH (13:29)
[2021-12-19] MEDS: APIXABAN 5 MG TABLET PO SCH (13:29)
[2021-12-19] MEDS: CITALOPRAM HYDROBROMIDE 10 MG TABLET PO SCH (13:29)
== END 2021-12-19 15:26 | DRG 871 ==
LOC: JER 22:50 → JERBED 23:13 → J7W 12-12 08:00
PROVIDERS: ADMIT Internal Medicine; ATTEND Internal Medicine
DX: A41.02 Sepsis due to Methicillin resistant Staphylococcus aureus (principal); G93.41 Metabolic encephalopathy; J96.01 Acute respiratory failure with hypoxia; N18.6 End stage renal disease; J90 Pleural effusion, not elsewhere classified; I12.0 Hypertensive chronic kidney disease with stage 5 chronic kidney disease or end stage renal disease; N17.9 Acute kidney failure, unspecified; M48.54XA Collapsed vertebra, not elsewhere classified, thoracic region, initial encounter for fracture; R65.20 Severe sepsis without septic shock; R00.0 Tachycardia, unspecified; I95.9 Hypotension, unspecified; K21.9 Gastro-esophageal reflux disease without esophagitis; F31.9 Bipolar disorder, unspecified; G40.909 Epilepsy, unspecified, not intractable, without status epilepticus; H27.02 Aphakia, left eye; E27.9 Disorder of adrenal gland, unspecified; F20.9 Schizophrenia, unspecified; K59.00 Constipation, unspecified; E07.9 Disorder of thyroid, unspecified; N28.1 Cyst of kidney, acquired; J44.9 Chronic obstructive pulmonary disease, unspecified; I34.0 Nonrheumatic mitral (valve) insufficiency; Z86.73 Personal history of transient ischemic attack (TIA), and cerebral infarction without residual deficits; Z99.2 Dependence on renal dialysis
CPT/HCPCS: 0241U-QW; 36415; 71045-TC-FY; 71250-TC; 74176-TC; 80048; 80053; 82553; 82607; 82746; 82803; 83605; 83735; 84100; 84439; 84443; 84484; 85025; 85027; 85610; 85730; 86803; 86850; 86900; 86901; 87040; 87186; 87340; 93005; 93010; 93306-TC; 93990-TC; 99285-25; C9803-CS; G0480; Q5106; U0003; U0005

== ENCOUNTER 2022-01-28 16:43 | Inpatient (IN) | payer OTHER ==
[2022-01-28 21:11] LABS: HEMATOCRIT 16.8 % (35.4-49); MCH 31.7 pg (25.7-33.7); MCHC 33.9 g/dl (32.0-35.9); MEAN CELL VOLUME 93.2 fl (80-96); MEAN PLT VOLUME 7.1 fl (7.5-11.1); PLATELET COUNT 218 10^3/uL (134-434); RDW 16.7 % (11.9-15.9); WHITE BLOOD COUNT 3.9 K/mm3 (4.0-10.0)
[2022-01-28 21:18] LABS: INR 1.56 (0.83-1.09)
[2022-01-28 21:23] LABS: CHLORIDE 103 mmol/L (98-107); SODIUM 139 mmol/L (136-145)
[2022-01-28 21:25] LABS: CALCIUM 8.5 mg/dL (8.5-10.1)
[2022-01-28 21:26] LABS: ALBUMIN 2.8 g/dl (3.4-5.0); ANION GAP 12 MMOL/L (8-16); BLOOD UREA NITROGEN 79.4 mg/dL (7-18); CO2 24 mmol/L (21-32); GLUCOSE,RANDOM 99 mg/dL (74-106); HEMOGLOBIN 5.7 GM/dL (11.7-16.9); MAGNESIUM 2.3 mg/dL (1.8-2.4)
[2022-01-28 21:29] LABS: PHOSPHOROUS 4.9 mg/dL (2.5-4.9); SGOT/AST 13 U/L (15-37); SGPT/ALT 15 U/L (13-61)
[2022-01-28 21:30] LABS: BILIRUBIN,TOTAL 0.4 mg/dL (0.2-1)
[2022-01-28 21:31] LABS: TOT PROT 6.6 g/dl (6.4-8.2)
[2022-01-28 21:32] LABS: ALK PHOS 178 U/L (45-117)
[2022-01-28 21:33] LABS: CREATININE 9.5 mg/dL (0.55-1.3)
[2022-01-29 05:19] VITALS: BMI 25.2
[2022-01-29] MEDS: POLYETHYLENE GLYCOL (HEALTHYLAX) 3350 17 GM PACKET PO SCH ×3 (07:01→22:48)
[2022-01-29] MEDS: SODIUM ZIRCONIUM CYCLOSILICATE (LOKELMA) 5 GM PACKET PO SCH ×2 (09:55→09:57)
[2022-01-29] MEDS ORDERED: SODIUM CHLORIDE 250 ML IV PRN ×2 (10:07→10:16)
[2022-01-29] MEDS ORDERED: ACETAMINOPHEN 325 MG TABLET (FP) PO PRN (13:53)
[2022-01-29 15:52] LABS: BASO % 0.4 % (0-2.0); HEMOGLOBIN 7.5 GM/dL (11.7-16.9); LYMPH % 9.8 % (8-40); MCH 31.4 pg (25.7-33.7); MEAN CELL VOLUME 92.3 fl (80-96); MEAN PLT VOLUME 7.1 fl (7.5-11.1); MONO % 8.3 % (3.8-10.2); NEUT % 77.5 % (42.8-82.8); PLATELET COUNT 236 10^3/uL (134-434); RBC 2.38 M/mm3 (4.00-5.60); RDW 16.3 % (11.9-15.9); RETICULOCYTES 0.83 % (0.5-1.5); WHITE BLOOD COUNT 5.6 K/mm3 (4.0-10.0)
[2022-01-29 16:09] LABS: CHLORIDE 104 mmol/L (98-107); SODIUM 139 mmol/L (136-145)
[2022-01-29 16:10] LABS: CALCIUM 8.6 mg/dL (8.5-10.1)
[2022-01-29 16:11] LABS: ANION GAP 13 MMOL/L (8-16); BLOOD UREA NITROGEN 92.1 mg/dL (7-18); CO2 23 mmol/L (21-32); GLUCOSE,RANDOM 105 mg/dL (74-106); MAGNESIUM 2.5 mg/dL (1.8-2.4)
[2022-01-29 16:14] LABS: TOTAL IRON BINDING CAPACITY 148 ug/dL (250-450)
[2022-01-29 16:16] LABS: IRON SERUM 141 ug/dL (50-175)
[2022-01-29 16:25] LABS: CREATININE 10.8 mg/dL (0.55-1.3)
[2022-01-29] MEDS: APIXABAN 5 MG TABLET PO SCH (22:46)
[2022-01-29] MEDS: LACOSAMIDE 50 MG TABLET PO SCH (22:46)
[2022-01-30] MEDS: POLYETHYLENE GLYCOL (HEALTHYLAX) 3350 17 GM PACKET PO SCH ×3 (06:38→21:23)
[2022-01-30] MEDS: LACOSAMIDE 50 MG TABLET PO SCH ×2 (10:21→21:23)
[2022-01-30] MEDS: APIXABAN 5 MG TABLET PO SCH ×2 (10:21→21:23)
[2022-01-30] MEDS: PANTOPRAZOLE 40 MG TABLET PO SCH (10:21)
[2022-01-30] MEDS: BENZTROPINE MESYLATE 1 MG TABLET PO SCH (10:22)
[2022-01-30] MEDS: SODIUM ZIRCONIUM CYCLOSILICATE (LOKELMA) 5 GM PACKET PO SCH (10:22)
[2022-01-30] MEDS: CITALOPRAM HYDROBROMIDE 20 MG TABLET PO SCH (10:22)
[2022-01-30 10:27] LABS: BASO % 0.4 % (0-2.0); EOS % 1.5 % (0-4.5); HEMATOCRIT 24.2 % (35.4-49); HEMOGLOBIN 8.5 GM/dL (11.7-16.9); LYMPH % 8.7 % (8-40); MCH 32.3 pg (25.7-33.7); MCHC 35.2 g/dl (32.0-35.9); MEAN CELL VOLUME 91.9 fl (80-96); MEAN PLT VOLUME 7.5 fl (7.5-11.1); MONO % 7.2 % (3.8-10.2); NEUT % 82.2 % (42.8-82.8); PLATELET COUNT 246 10^3/uL (134-434); RBC 2.63 M/mm3 (4.00-5.60); RDW 16.1 % (11.9-15.9); WHITE BLOOD COUNT 6.6 K/mm3 (4.0-10.0)
[2022-01-30] MEDS: levETIRAcetam 500 MG/5 ML ORAL SOLUTION (UNIT-DOSE CUPS) PO SCH ×2 (13:11→21:23)
[2022-01-31] MEDS: POLYETHYLENE GLYCOL (HEALTHYLAX) 3350 17 GM PACKET PO SCH ×3 (06:24→21:00)
[2022-01-31 08:25] LABS: BASO % 0.3 % (0-2.0); HEMOGLOBIN 7.4 GM/dL (11.7-16.9); LYMPH % 10.3 % (8-40); MCH 32.8 pg (25.7-33.7); MCHC 35.3 g/dl (32.0-35.9); MEAN PLT VOLUME 7.2 fl (7.5-11.1); MONO % 8.2 % (3.8-10.2); NEUT % 79.2 % (42.8-82.8); PLATELET COUNT 232 10^3/uL (134-434); RBC 2.26 M/mm3 (4.00-5.60); RDW 15.9 % (11.9-15.9); WHITE BLOOD COUNT 6.6 K/mm3 (4.0-10.0)
[2022-01-31 08:35] LABS: CHLORIDE 103 mmol/L (98-107); SODIUM 142 mmol/L (136-145)
[2022-01-31 08:41] LABS: CALCIUM 8.4 mg/dL (8.5-10.1)
[2022-01-31 08:42] LABS: ANION GAP 12 MMOL/L (8-16); CO2 28 mmol/L (21-32); GLUCOSE,RANDOM 92 mg/dL (74-106)
[2022-01-31 08:45] LABS: PHOSPHOROUS 4.7 mg/dL (2.5-4.9)
[2022-01-31 08:50] LABS: BLOOD UREA NITROGEN 63.4 mg/dL (7-18); CREATININE 8.1 mg/dL (0.55-1.3)
[2022-01-31] MEDS ORDERED: VANCOMYCIN 1 GRAM (PRE-DOCKED) 1,000 MG/250 ML BAG IVPB ONE (09:00)
[2022-01-31] MEDS: EPOETIN ALFA-EPBX 20,000 UNIT/ML VIAL IVPUSH ONE ×2 (09:02→12:51)
[2022-01-31] MEDS ORDERED: SODIUM CHLORIDE 250 ML IV PRN (11:21)
[2022-01-31] MEDS: CITALOPRAM HYDROBROMIDE 20 MG TABLET PO SCH (11:45)
[2022-01-31] MEDS: APIXABAN 5 MG TABLET PO SCH (11:45)
[2022-01-31] MEDS: BENZTROPINE MESYLATE 1 MG TABLET PO SCH (11:45)
[2022-01-31] MEDS: LACOSAMIDE 50 MG TABLET PO SCH ×2 (11:46→21:00)
[2022-01-31] MEDS: levETIRAcetam 500 MG/5 ML ORAL SOLUTION (UNIT-DOSE CUPS) PO SCH ×2 (11:46→21:00)
[2022-01-31] MEDS: PANTOPRAZOLE 40 MG TABLET PO SCH (11:46)
[2022-01-31] MEDS: SODIUM ZIRCONIUM CYCLOSILICATE (LOKELMA) 5 GM PACKET PO SCH (11:46)
[2022-02-01] MEDS: POLYETHYLENE GLYCOL (HEALTHYLAX) 3350 17 GM PACKET PO SCH ×3 (06:48→22:09)
[2022-02-01] MEDS: CITALOPRAM HYDROBROMIDE 20 MG TABLET PO SCH (09:17)
[2022-02-01] MEDS: SODIUM ZIRCONIUM CYCLOSILICATE (LOKELMA) 5 GM PACKET PO SCH (09:17)
[2022-02-01] MEDS: LACOSAMIDE 50 MG TABLET PO SCH ×2 (09:17→22:09)
[2022-02-01] MEDS: PANTOPRAZOLE 40 MG TABLET PO SCH (09:17)
[2022-02-01] MEDS: BENZTROPINE MESYLATE 1 MG TABLET PO SCH (09:17)
[2022-02-01] MEDS: levETIRAcetam 500 MG/5 ML ORAL SOLUTION (UNIT-DOSE CUPS) PO SCH ×2 (09:17→22:09)
[2022-02-01 09:55] LABS: HEMATOCRIT 23.4 % (35.4-49); HEMOGLOBIN 7.8 GM/dL (11.7-16.9); LYMPH % 10.3 % (8-40); MCH 31.1 pg (25.7-33.7); MCHC 33.3 g/dl (32.0-35.9); MEAN CELL VOLUME 93.4 fl (80-96); MEAN PLT VOLUME 7.5 fl (7.5-11.1); MONO % 10.8 % (3.8-10.2); PLATELET COUNT 252 10^3/uL (134-434); RDW 15.5 % (11.9-15.9); WHITE BLOOD COUNT 5.4 K/mm3 (4.0-10.0)
[2022-02-01 09:56] LABS: BASO % 0.5 % (0-2.0); EOS % 3.4 % (0-4.5)
[2022-02-01 10:19] LABS: CALCIUM 8.8 mg/dL (8.5-10.1)
[2022-02-01 10:24] LABS: CREATININE 5.6 mg/dL (0.55-1.3)
[2022-02-01 10:26] LABS: BLOOD UREA NITROGEN 36.1 mg/dL (7-18)
[2022-02-02] MEDS: POLYETHYLENE GLYCOL (HEALTHYLAX) 3350 17 GM PACKET PO SCH ×3 (06:26→22:13)
[2022-02-02] MEDS: CITALOPRAM HYDROBROMIDE 20 MG TABLET PO SCH (09:31)
[2022-02-02] MEDS: PANTOPRAZOLE 40 MG TABLET PO SCH (09:31)
[2022-02-02 09:32] LABS: BASO % 0.6 % (0-2.0); EOS % 7.8 % (0-4.5); HEMOGLOBIN 7.4 GM/dL (11.7-16.9); LYMPH % 15.6 % (8-40); MCH 31.2 pg (25.7-33.7); MCHC 33.5 g/dl (32.0-35.9); MEAN CELL VOLUME 92.9 fl (80-96); MEAN PLT VOLUME 7.3 fl (7.5-11.1); MONO % 11.3 % (3.8-10.2); NEUT % 64.7 % (42.8-82.8); PLATELET COUNT 254 10^3/uL (134-434); RBC 2.37 M/mm3 (4.00-5.60); RDW 16.2 % (11.9-15.9); WHITE BLOOD COUNT 4.3 K/mm3 (4.0-10.0)
[2022-02-02] MEDS: SODIUM ZIRCONIUM CYCLOSILICATE (LOKELMA) 5 GM PACKET PO SCH (09:32)
[2022-02-02] MEDS: BENZTROPINE MESYLATE 1 MG TABLET PO SCH (09:32)
[2022-02-02] MEDS: LACOSAMIDE 50 MG TABLET PO SCH ×2 (09:32→22:13)
[2022-02-02] MEDS: levETIRAcetam 500 MG/5 ML ORAL SOLUTION (UNIT-DOSE CUPS) PO SCH ×2 (09:32→22:13)
[2022-02-02] MEDS ORDERED: BISACODYL 5 MG TABLET.DR (FP) PO ONE (16:00)
[2022-02-02] MEDS ORDERED: POLYETHYLENE GLYCOL 3350 255 GM BTL PO ONE (17:00)
[2022-02-03] MEDS: POLYETHYLENE GLYCOL (HEALTHYLAX) 3350 17 GM PACKET PO SCH ×3 (06:10→22:12)
[2022-02-03] MEDS: levETIRAcetam 500 MG/5 ML ORAL SOLUTION (UNIT-DOSE CUPS) PO SCH ×3 (09:17→22:12)
[2022-02-03] MEDS: CITALOPRAM HYDROBROMIDE 20 MG TABLET PO SCH ×2 (09:17→17:56)
[2022-02-03] MEDS: BENZTROPINE MESYLATE 1 MG TABLET PO SCH ×2 (09:17→17:56)
[2022-02-03] MEDS: PANTOPRAZOLE 40 MG TABLET PO SCH ×2 (09:17→17:56)
[2022-02-03] MEDS: SODIUM ZIRCONIUM CYCLOSILICATE (LOKELMA) 5 GM PACKET PO SCH ×2 (09:17→17:56)
[2022-02-03] MEDS: LACOSAMIDE 50 MG TABLET PO SCH ×3 (09:17→22:13)
[2022-02-03] MEDS ORDERED: EPOETIN ALFA-EPBX 10,000 UNIT/ML VIAL IVPUSH ONE (10:00)
[2022-02-03] MEDS ORDERED: VANCOMYCIN 1 GM/200 ML PREMIX BAG IVPB ONE (10:00)
[2022-02-03] MEDS ORDERED: EPINEPHrine/PF 1 MG/1 ML (1:1,000) AMPULE ONE (11:23)
[2022-02-03] MEDS ORDERED: EPINEPHrine 1:10,000 (P-F SYR) 1 MG/10 ML DISP.SYRIN ONE (11:24)
[2022-02-03 13:57] LABS: BASO % 0.6 % (0-2.0); EOS % 6.1 % (0-4.5); HEMATOCRIT 20.6 % (35.4-49); HEMOGLOBIN 7.1 GM/dL (11.7-16.9); LYMPH % 19.3 % (8-40); MCH 31.9 pg (25.7-33.7); MCHC 34.6 g/dl (32.0-35.9); MEAN CELL VOLUME 92.2 fl (80-96); MEAN PLT VOLUME 6.9 fl (7.5-11.1); MONO % 8.5 % (3.8-10.2); NEUT % 65.5 % (42.8-82.8); PLATELET COUNT 231 10^3/uL (134-434); RBC 2.23 M/mm3 (4.00-5.60); RDW 15.9 % (11.9-15.9)
[2022-02-03 14:23] LABS: CHLORIDE 99 mmol/L (98-107); SODIUM 140 mmol/L (136-145)
[2022-02-03 14:24] LABS: CALCIUM 8.3 mg/dL (8.5-10.1)
[2022-02-03 14:25] LABS: ANION GAP 13 MMOL/L (8-16); CO2 27 mmol/L (21-32); GLUCOSE,RANDOM 99 mg/dL (74-106)
[2022-02-03 14:29] LABS: BLOOD UREA NITROGEN 65.7 mg/dL (7-18)
[2022-02-04] MEDS: POLYETHYLENE GLYCOL (HEALTHYLAX) 3350 17 GM PACKET PO SCH ×3 (06:28→22:23)
[2022-02-04] MEDS: PANTOPRAZOLE 40 MG TABLET PO SCH (09:48)
[2022-02-04] MEDS: SODIUM ZIRCONIUM CYCLOSILICATE (LOKELMA) 5 GM PACKET PO SCH (09:49)
[2022-02-04] MEDS: LACOSAMIDE 50 MG TABLET PO SCH ×2 (09:49→22:23)
[2022-02-04] MEDS: CITALOPRAM HYDROBROMIDE 20 MG TABLET PO SCH (09:49)
[2022-02-04] MEDS: BENZTROPINE MESYLATE 1 MG TABLET PO SCH (09:49)
[2022-02-04] MEDS: levETIRAcetam 500 MG/5 ML ORAL SOLUTION (UNIT-DOSE CUPS) PO SCH ×2 (09:49→22:23)
[2022-02-04 11:06] LABS: CREATININE 5.9 mg/dL (0.55-1.3)
[2022-02-04 11:17] LABS: BLOOD UREA NITROGEN 33.5 mg/dL (7-18); CALCIUM 8.8 mg/dL (8.5-10.1)
[2022-02-04] MEDS: APIXABAN 5 MG TABLET PO SCH ×2 (11:38→22:22)
[2022-02-04 16:23] LABS: BASO % 0.6 % (0-2.0); EOS % 5.2 % (0-4.5); HEMATOCRIT 25.9 % (35.4-49); HEMOGLOBIN 8.9 GM/dL (11.7-16.9); LYMPH % 18.5 % (8-40); MCHC 34.4 g/dl (32.0-35.9); MEAN PLT VOLUME 7.2 fl (7.5-11.1); MONO % 10.9 % (3.8-10.2); NEUT % 64.8 % (42.8-82.8); PLATELET COUNT 262 10^3/uL (134-434); RBC 2.78 M/mm3 (4.00-5.60); RDW 15.5 % (11.9-15.9); WHITE BLOOD COUNT 5.2 K/mm3 (4.0-10.0)
[2022-02-05] MEDS: POLYETHYLENE GLYCOL (HEALTHYLAX) 3350 17 GM PACKET PO SCH ×3 (06:21→22:35)
[2022-02-05] MEDS ORDERED: SODIUM CHLORIDE 250 ML IV PRN (09:29)
[2022-02-05] MEDS ORDERED: EPOETIN ALFA-EPBX 20,000 UNIT/ML VIAL SQ ONE (10:00)
[2022-02-05] MEDS: CITALOPRAM HYDROBROMIDE 20 MG TABLET PO SCH ×2 (10:30→13:09)
[2022-02-05] MEDS: APIXABAN 5 MG TABLET PO SCH ×3 (10:31→22:35)
[2022-02-05] MEDS: SODIUM ZIRCONIUM CYCLOSILICATE (LOKELMA) 5 GM PACKET PO SCH (10:31)
[2022-02-05] MEDS: BENZTROPINE MESYLATE 1 MG TABLET PO SCH ×2 (10:31→13:08)
[2022-02-05] MEDS: PANTOPRAZOLE 40 MG TABLET PO SCH ×2 (10:31→13:08)
[2022-02-05] MEDS: VITAMIN B COMP W-C 1 EA TABLET (NEPHRO-VITE) PO SCH ×2 (10:31→13:08)
[2022-02-05] MEDS: levETIRAcetam 500 MG/5 ML ORAL SOLUTION (UNIT-DOSE CUPS) PO SCH ×3 (10:31→22:35)
[2022-02-05] MEDS: LACOSAMIDE 50 MG TABLET PO SCH ×2 (10:32→13:09)
[2022-02-05 17:09] LABS: FREE KAPPA,SERUM 244.6 mg/L (3.3-19.4)
[2022-02-06] MEDS: POLYETHYLENE GLYCOL (HEALTHYLAX) 3350 17 GM PACKET PO SCH ×3 (06:49→22:40)
[2022-02-06] MEDS: PANTOPRAZOLE 40 MG TABLET PO SCH (10:11)
[2022-02-06] MEDS: levETIRAcetam 500 MG/5 ML ORAL SOLUTION (UNIT-DOSE CUPS) PO SCH ×2 (10:11→22:40)
[2022-02-06] MEDS: SODIUM ZIRCONIUM CYCLOSILICATE (LOKELMA) 5 GM PACKET PO SCH (10:11)
[2022-02-06] MEDS: VITAMIN B COMP W-C 1 EA TABLET (NEPHRO-VITE) PO SCH (10:11)
[2022-02-06] MEDS: CITALOPRAM HYDROBROMIDE 20 MG TABLET PO SCH (10:11)
[2022-02-06] MEDS: APIXABAN 5 MG TABLET PO SCH ×2 (10:11→22:40)
[2022-02-06] MEDS: BENZTROPINE MESYLATE 1 MG TABLET PO SCH (12:03)
[2022-02-07] MEDS: POLYETHYLENE GLYCOL (HEALTHYLAX) 3350 17 GM PACKET PO SCH ×3 (06:34→21:46)
[2022-02-07] MEDS ORDERED: EPOETIN ALFA-EPBX 20,000 UNIT/ML VIAL IVPUSH ONE (10:00)
[2022-02-07] MEDS ORDERED: SODIUM CHLORIDE 250 ML IV PRN (10:00)
[2022-02-07] MEDS ORDERED: VANCOMYCIN 1 GM in D5W (PRE-DOCKED) 1,000 MG/250 ML IVPB ONE (10:09)
[2022-02-07] MEDS ORDERED: VANCOMYCIN 1 GM/200 ML PREMIX BAG IVPB ONE (10:15)
[2022-02-07 11:36] LABS: BASO % 0.4 % (0-2.0); HEMATOCRIT 26.9 % (35.4-49); HEMOGLOBIN 8.9 GM/dL (11.7-16.9); LYMPH % 11.5 % (8-40); MCHC 33.1 g/dl (32.0-35.9); MEAN CELL VOLUME 96.7 fl (80-96); MEAN PLT VOLUME 7.5 fl (7.5-11.1); MONO % 5.1 % (3.8-10.2); PLATELET COUNT 247 10^3/uL (134-434); RBC 2.78 M/mm3 (4.00-5.60); RDW 15.7 % (11.9-15.9); WHITE BLOOD COUNT 6.5 K/mm3 (4.0-10.0)
[2022-02-07 11:56] LABS: CALCIUM 8.6 mg/dL (8.5-10.1)
[2022-02-07 11:57] LABS: ALBUMIN 3.1 g/dl (3.4-5.0); BLOOD UREA NITROGEN 43.9 mg/dL (7-18); MAGNESIUM 2.2 mg/dL (1.8-2.4)
[2022-02-07 12:00] LABS: CREATININE 7.4 mg/dL (0.55-1.3); PHOSPHOROUS 4.2 mg/dL (2.5-4.9)
[2022-02-07 12:01] LABS: TOT PROT 6.9 g/dl (6.4-8.2)
[2022-02-07 12:02] LABS: BILIRUBIN,TOTAL 0.3 mg/dL (0.2-1)
[2022-02-07] MEDS: VITAMIN B COMP W-C 1 EA TABLET (NEPHRO-VITE) PO SCH (14:40)
[2022-02-07] MEDS: APIXABAN 5 MG TABLET PO SCH ×2 (14:40→21:47)
[2022-02-07] MEDS: SODIUM ZIRCONIUM CYCLOSILICATE (LOKELMA) 5 GM PACKET PO SCH (14:40)
[2022-02-07] MEDS: CITALOPRAM HYDROBROMIDE 20 MG TABLET PO SCH (14:40)
[2022-02-07] MEDS: PANTOPRAZOLE 40 MG TABLET PO SCH (14:40)
[2022-02-07] MEDS: levETIRAcetam 500 MG/5 ML ORAL SOLUTION (UNIT-DOSE CUPS) PO SCH ×2 (14:48→21:46)
[2022-02-07] MEDS: BENZTROPINE MESYLATE 1 MG TABLET PO SCH (14:48)
[2022-02-08] MEDS: POLYETHYLENE GLYCOL (HEALTHYLAX) 3350 17 GM PACKET PO SCH ×3 (06:34→22:55)
[2022-02-08 09:38] LABS: HEMATOCRIT 29.8 % (35.4-49); HEMOGLOBIN 9.7 GM/dL (11.7-16.9); MCH 31.6 pg (25.7-33.7); MCHC 32.5 g/dl (32.0-35.9); MEAN CELL VOLUME 97.4 fl (80-96); MEAN PLT VOLUME 7.6 fl (7.5-11.1); PLATELET COUNT 241 10^3/uL (134-434); RBC 3.06 M/mm3 (4.00-5.60); RDW 16.6 % (11.9-15.9); WHITE BLOOD COUNT 6.4 K/mm3 (4.0-10.0)
[2022-02-08] MEDS: PANTOPRAZOLE 40 MG TABLET PO SCH (09:43)
[2022-02-08] MEDS: VITAMIN B COMP W-C 1 EA TABLET (NEPHRO-VITE) PO SCH (09:43)
[2022-02-08] MEDS: SODIUM ZIRCONIUM CYCLOSILICATE (LOKELMA) 5 GM PACKET PO SCH (09:43)
[2022-02-08] MEDS: CITALOPRAM HYDROBROMIDE 20 MG TABLET PO SCH (09:43)
[2022-02-08] MEDS: APIXABAN 5 MG TABLET PO SCH ×2 (09:43→22:55)
[2022-02-08] MEDS: levETIRAcetam 500 MG/5 ML ORAL SOLUTION (UNIT-DOSE CUPS) PO SCH ×2 (09:43→22:55)
[2022-02-08] MEDS: BENZTROPINE MESYLATE 1 MG TABLET PO SCH (09:56)
[2022-02-08 10:11] LABS: ANISOCYTOSIS 3+; MACROCYTOSIS 0
[2022-02-08 10:12] LABS: ALBUMIN 3.4 g/dl (3.4-5.0); BLOOD UREA NITROGEN 32.9 mg/dL (7-18); CALCIUM 9.6 mg/dL (8.5-10.1)
[2022-02-08 10:15] LABS: CREATININE 5.3 mg/dL (0.55-1.3)
[2022-02-08 10:17] LABS: BILIRUBIN,TOTAL 0.4 mg/dL (0.2-1); TOT PROT 7.1 g/dl (6.4-8.2)
[2022-02-09] MEDS: POLYETHYLENE GLYCOL (HEALTHYLAX) 3350 17 GM PACKET PO SCH ×3 (07:01→21:23)
[2022-02-09] MEDS: PANTOPRAZOLE 40 MG TABLET PO SCH (10:40)
[2022-02-09] MEDS: CITALOPRAM HYDROBROMIDE 20 MG TABLET PO SCH (10:40)
[2022-02-09] MEDS: APIXABAN 5 MG TABLET PO SCH ×2 (10:40→21:23)
[2022-02-09] MEDS: levETIRAcetam 500 MG/5 ML ORAL SOLUTION (UNIT-DOSE CUPS) PO SCH ×2 (10:40→21:23)
[2022-02-09] MEDS: VITAMIN B COMP W-C 1 EA TABLET (NEPHRO-VITE) PO SCH (10:40)
[2022-02-09] MEDS: SODIUM ZIRCONIUM CYCLOSILICATE (LOKELMA) 5 GM PACKET PO SCH (10:40)
[2022-02-09] MEDS: BENZTROPINE MESYLATE 1 MG TABLET PO SCH (10:43)
[2022-02-09] MEDS ORDERED: SODIUM CHLORIDE 250 ML IV PRN (12:56)
[2022-02-10] MEDS: POLYETHYLENE GLYCOL (HEALTHYLAX) 3350 17 GM PACKET PO SCH ×3 (06:41→22:02)
[2022-02-10 09:11] LABS: BASO % 0.5 % (0-2.0); EOS % 5.3 % (0-4.5); HEMATOCRIT 27.9 % (35.4-49); HEMOGLOBIN 9.2 GM/dL (11.7-16.9); LYMPH % 16.7 % (8-40); MCH 32.3 pg (25.7-33.7); MCHC 33.1 g/dl (32.0-35.9); MEAN CELL VOLUME 97.5 fl (80-96); MEAN PLT VOLUME 7.3 fl (7.5-11.1); MONO % 6.1 % (3.8-10.2); NEUT % 71.4 % (42.8-82.8); PLATELET COUNT 200 10^3/uL (134-434); RBC 2.86 M/mm3 (4.00-5.60); RDW 18.4 % (11.9-15.9); WHITE BLOOD COUNT 5.5 K/mm3 (4.0-10.0)
[2022-02-10 09:37] LABS: SODIUM 141 mmol/L (136-145)
[2022-02-10 09:40] LABS: CO2 28 mmol/L (21-32); GLUCOSE,RANDOM 150 mg/dL (74-106)
[2022-02-10 09:43] LABS: PHOSPHOROUS 5.9 mg/dL (2.5-4.9)
[2022-02-10 09:59] LABS: ANION GAP 8 MMOL/L (8-16); BLOOD UREA NITROGEN 71.3 mg/dL (7-18); CHLORIDE 105 mmol/L (98-107); CREATININE 9.2 mg/dL (0.55-1.3)
[2022-02-10 11:53] LABS: ALBUMIN 3.3 g/dl (3.4-5.0)
[2022-02-10 11:55] LABS: SGPT/ALT 17 U/L (13-61)
[2022-02-10 11:56] LABS: SGOT/AST 12 U/L (15-37)
[2022-02-10 11:57] LABS: BILIRUBIN,TOTAL 0.5 mg/dL (0.2-1); TOT PROT 6.7 g/dl (6.4-8.2)
[2022-02-10 11:58] LABS: ALK PHOS 174 U/L (45-117)
[2022-02-10] MEDS: CITALOPRAM HYDROBROMIDE 20 MG TABLET PO SCH (13:42)
[2022-02-10] MEDS: BENZTROPINE MESYLATE 1 MG TABLET PO SCH (13:42)
[2022-02-10] MEDS: PANTOPRAZOLE 40 MG TABLET PO SCH (13:42)
[2022-02-10] MEDS: SODIUM ZIRCONIUM CYCLOSILICATE (LOKELMA) 5 GM PACKET PO SCH (13:42)
[2022-02-10] MEDS: levETIRAcetam 500 MG/5 ML ORAL SOLUTION (UNIT-DOSE CUPS) PO SCH ×2 (13:42→22:02)
[2022-02-10] MEDS: APIXABAN 5 MG TABLET PO SCH ×2 (13:42→22:02)
[2022-02-10] MEDS: VITAMIN B COMP W-C 1 EA TABLET (NEPHRO-VITE) PO SCH (13:42)
[2022-02-11] MEDS: POLYETHYLENE GLYCOL (HEALTHYLAX) 3350 17 GM PACKET PO SCH ×3 (06:01→22:55)
[2022-02-11] MEDS: VITAMIN B COMP W-C 1 EA TABLET (NEPHRO-VITE) PO SCH (09:15)
[2022-02-11] MEDS: PANTOPRAZOLE 40 MG TABLET PO SCH (09:15)
[2022-02-11] MEDS: levETIRAcetam 500 MG/5 ML ORAL SOLUTION (UNIT-DOSE CUPS) PO SCH ×2 (09:15→22:55)
[2022-02-11] MEDS: CITALOPRAM HYDROBROMIDE 20 MG TABLET PO SCH (09:15)
[2022-02-11] MEDS: BENZTROPINE MESYLATE 1 MG TABLET PO SCH (09:15)
[2022-02-11] MEDS: APIXABAN 5 MG TABLET PO SCH ×2 (09:15→22:55)
[2022-02-11] MEDS: SODIUM ZIRCONIUM CYCLOSILICATE (LOKELMA) 5 GM PACKET PO SCH (09:16)
[2022-02-11 09:52] LABS: BASO % 0.7 % (0-2.0); EOS % 6.5 % (0-4.5); HEMATOCRIT 28.2 % (35.4-49); HEMOGLOBIN 9.4 GM/dL (11.7-16.9); LYMPH % 16.4 % (8-40); MCH 32.4 pg (25.7-33.7); MCHC 33.3 g/dl (32.0-35.9); MEAN CELL VOLUME 97.4 fl (80-96); MEAN PLT VOLUME 7.4 fl (7.5-11.1); MONO % 8.5 % (3.8-10.2); NEUT % 67.9 % (42.8-82.8); PLATELET COUNT 188 10^3/uL (134-434); RBC 2.89 M/mm3 (4.00-5.60); RDW 18.7 % (11.9-15.9); WHITE BLOOD COUNT 5.1 K/mm3 (4.0-10.0)
[2022-02-11 10:25] LABS: CALCIUM 8.8 mg/dL (8.5-10.1)
[2022-02-11 10:26] LABS: ALBUMIN 3.4 g/dl (3.4-5.0)
[2022-02-11 10:30] LABS: BILIRUBIN,TOTAL 0.6 mg/dL (0.2-1); CREATININE 5.8 mg/dL (0.55-1.3); PHOSPHOROUS 5.9 mg/dL (2.5-4.9); TOT PROT 6.9 g/dl (6.4-8.2)
[2022-02-11] MEDS ORDERED: SODIUM CHLORIDE 250 ML IV PRN (20:18)
[2022-02-12] MEDS: POLYETHYLENE GLYCOL (HEALTHYLAX) 3350 17 GM PACKET PO SCH ×2 (07:31→14:36)
[2022-02-12] MEDS ORDERED: IRON SUCROSE INJECTION 100 MG in SODIUM CHLORIDE 95 ML IVPB ONE (07:45)
[2022-02-12] MEDS ORDERED: EPOETIN ALFA-EPBX 20,000 UNIT/ML VIAL IVPUSH ONE (07:45)
[2022-02-12 09:15] VITALS: RESP 18
[2022-02-12] MEDS: CITALOPRAM HYDROBROMIDE 20 MG TABLET PO SCH (10:17)
[2022-02-12 10:18] LABS: BASO % 0.3 % (0-2.0); EOS % 6.2 % (0-4.5); HEMATOCRIT 27.4 % (35.4-49); HEMOGLOBIN 9.2 GM/dL (11.7-16.9); LYMPH % 13.6 % (8-40); MCH 32.9 pg (25.7-33.7); MCHC 33.6 g/dl (32.0-35.9); MEAN CELL VOLUME 97.7 fl (80-96); MEAN PLT VOLUME 7.6 fl (7.5-11.1); MONO % 5.9 % (3.8-10.2); PLATELET COUNT 170 10^3/uL (134-434); RBC 2.81 M/mm3 (4.00-5.60); WHITE BLOOD COUNT 5.9 K/mm3 (4.0-10.0)
[2022-02-12] MEDS: APIXABAN 5 MG TABLET PO SCH (10:18)
[2022-02-12] MEDS: BENZTROPINE MESYLATE 1 MG TABLET PO SCH (10:18)
[2022-02-12] MEDS: SODIUM ZIRCONIUM CYCLOSILICATE (LOKELMA) 5 GM PACKET PO SCH (10:18)
[2022-02-12] MEDS: levETIRAcetam 500 MG/5 ML ORAL SOLUTION (UNIT-DOSE CUPS) PO SCH (10:18)
[2022-02-12] MEDS: PANTOPRAZOLE 40 MG TABLET PO SCH (10:19)
[2022-02-12] MEDS: VITAMIN B COMP W-C 1 EA TABLET (NEPHRO-VITE) PO SCH (10:19)
[2022-02-12 10:29] LABS: CHLORIDE 104 mmol/L (98-107); SODIUM 141 mmol/L (136-145)
[2022-02-12 10:39] LABS: CALCIUM 8.9 mg/dL (8.5-10.1); GLUCOSE,RANDOM 109 mg/dL (74-106)
[2022-02-12 10:40] LABS: ANION GAP 8 MMOL/L (8-16); BLOOD UREA NITROGEN 64.4 mg/dL (7-18); CO2 29 mmol/L (21-32); MAGNESIUM 2.1 mg/dL (1.8-2.4)
[2022-02-12 10:43] LABS: PHOSPHOROUS 7.1 mg/dL (2.5-4.9)
[2022-02-12 10:44] LABS: CREATININE 7.7 mg/dL (0.55-1.3)
[2022-02-12 18:03] VITALS: BP 117/73; PULSE 83; TEMP 99
== END 2022-02-12 23:21 | DRG 682 ==
LOC: JER 16:43 → JERBED 23:13 → J8W 01-29 04:45
PROVIDERS: ADMIT Internal Medicine; ATTEND Internal Medicine
PROC: 30233N1 Transfusion of Nonautologous Red Blood Cells into Peripheral Vein, Percutaneous Approach (ICD-10-PCS; 2022-01-29)
PROC: 0DBL8ZX Excision of Transverse Colon, Via Natural or Artificial Opening Endoscopic, Diagnostic (ICD-10-PCS; 2022-02-03)
PROC: 0DBP8ZX Excision of Rectum, Via Natural or Artificial Opening Endoscopic, Diagnostic (ICD-10-PCS; 2022-02-03)
PROC: 0W3P8ZZ Control Bleeding in Gastrointestinal Tract, Via Natural or Artificial Opening Endoscopic (ICD-10-PCS; 2022-02-03)
PROC: 3E0H8GC Introduction of Other Therapeutic Substance into Lower GI, Via Natural or Artificial Opening Endoscopic (ICD-10-PCS; 2022-02-03)
PROC: 0DBM8ZX Excision of Descending Colon, Via Natural or Artificial Opening Endoscopic, Diagnostic (ICD-10-PCS; principal; 2022-02-03 10:30)
PROC: 5A1D70Z Performance of Urinary Filtration, Intermittent, Less than 6 Hours Per Day (ICD-10-PCS; 2022-02-12)
DX: I12.0 Hypertensive chronic kidney disease with stage 5 chronic kidney disease or end stage renal disease (principal); N18.6 End stage renal disease; R78.81 Bacteremia; D63.1 Anemia in chronic kidney disease; E11.9 Type 2 diabetes mellitus without complications; B95.61 Methicillin susceptible Staphylococcus aureus infection as the cause of diseases classified elsewhere; Z99.2 Dependence on renal dialysis; E78.5 Hyperlipidemia, unspecified; K21.9 Gastro-esophageal reflux disease without esophagitis; K59.00 Constipation, unspecified; K63.5 Polyp of colon
CPT/HCPCS: 36415; 36430; 80048; 80053; 80185; 82272; 82728; 83540; 83550; 83735; 83883; 84100; 85025; 85027; 85045; 85610; 85730; 86803; 86850; 86900; 86901; 86922; 87040; 87186; 87340; 88305-TC; 93005; 93010; 93306-TC; 99285-25; C9803-CS; G0480; J1756; P9058; Q5106; U0003; U0005